=== PATIENT | female | born 1945 | race Caucasian/White ===

== ENCOUNTER 2016-08-17 11:30 | Emergency (ER) | payer OTHER ==
[2016-08-17 11:50] VITALS: BP 122/62; PULSE 88; RESP 18; TEMP 98; O2SAT 97
--- NOTE | 2016-08-17 12:06 | UCPHY ---
H & P Patient Type: Established Chief Complaint Nursing Narrative: sent over for iv antibotics Time Seen by Provider: 08/17/16 11:43 HPI/ROS: CHIEF COMPLAINT: Cellulitis HISTORY OF PRESENT ILLNESS: The patient is a 71-year-old female who is sent from her doctor's office upstairs down to the Urgent Care to receive IV Rocephin. She has swelling and erythema to her right wrist. She is not sure how it started. She 1st noticed yesterday. It is warm to the touch and slightly painful for her. She denies any trauma. No visible abscess or purulence. She is not febrile. She had x-rays done already that revealed no fracture or signs of osteomyelitis. She denies any recent animal bite or scratch. She also had lab work done with her primary the reveals a mildly elevated white blood cell count. REVIEW OF SYSTEMS: Constitutional: denies: chills, fever, recent illness, recent injury EENTM: denies: blurred vision, double vision, nose congestion Respiratory: denies: cough, shortness of breath Cardiac: denies: chest pain, irregular heart rate, lightheadedness, palpitations Gastrointestinal/Abdominal: denies: abdominal pain, diarrhea, nausea, vomiting, blood streaked stools Genitourinary: denies: dysuria, frequency, hematuria, pain Musculoskeletal: denies: joint pain, muscle pain Skin: See HPI Neurological: denies: headache, numbness, paresthesia, tingling, dizziness, weakness Hematologic/Lymphatic: denies: blood clots, easy bleeding, easy bruising Immunologic/allergic: denies: HIV/AIDS, transplant EXAM: GENERAL: Well-appearing, well-nourished and in no acute distress. HEAD: Atraumatic, normocephalic. EYES: Pupils equal round and reactive to light, extraocular movements intact, sclera anicteric, conjunctiva are normal. ENT: TMs normal, nares patent, oropharynx clear without exudates. Moist mucous membranes. NECK: Normal range of motion, supple without lymphadenopathy or JVD. LUNGS: Breath sounds clear to auscultation bilaterally and equal. No wheezes rales or rhonchi. HEART: Regular rate and rhythm without murmurs, rubs or gallops. ABDOMEN: Soft, nontender, normoactive bowel sounds. No guarding, no rebound. No masses appreciated. BACK: No CVA tenderness, no spinal tenderness, step-offs or deformities EXTREMITIES: Normal range of motion, no pitting or edema. No clubbing or cyanosis. NEUROLOGICAL: Cranial nerves II through XII grossly intact. Normal speech, normal gait. 5/5 strength, normal movement in all extremities, normal sensation PSYCH: Normal mood, normal affect. SKIN: Right wrist with mild erythema and swelling circumferentially. Extends up to mid forearm. No obvious wound or abscess. Source: Patient - Personal History Tetanus Vaccine Date: 2005 - Medical/Surgical History Hx Asthma: Yes Hx Chronic Respiratory Disease: Yes Hx Diabetes: Yes Hx Cardiac Disease: No Hx Renal Disease: No Hx Cirrhosis: No Hx Alcoholism: No Hx HIV/AIDS: No Hx Splenectomy or Spleen Trauma: No Other PMH: HTN, HIGH CHOLESTROL, BENIGN STENOSIS SURGERY. UNABLE TO SWALLOW PILLS D/T "SPIDERWEB THROAT.". HYPOTHYROID, CSEC, ENDOSCOPIES, EAR DRUM SURG 2012, pneumonia, partial thyroidectomy - Family History Significant Family History: No pertinent family hx - Social History Smoking Status: Never smoked Alcohol Use: Sober Drug Use: None Constitutional: Initial Vital Signs Temperature (C) 36.6 C 08/17/16 11:47 Heart Rate 88 08/17/16 11:47 Respiratory Rate 18 08/17/16 11:47 Blood Pressure 122/62 H 08/17/16 11:47 O2 Sat (%) 97 08/17/16 11:47 O2 Delivery Mode Room Air Allergies/Adverse Reactions: azithromycin [Azithromycin] Allergy (Intermediate, Verified 01/02/16 16:15) "GETS WORSE NOT BETTER" WITH THIS MED PAIN MEDS Allergy (Intermediate, Uncoded 09/25/15 10:21) Vomiting PILLS Allergy (Uncoded 09/25/15 10:22) Other-Enter Comments Home Medications: Medication Instructions Recorded Aspirin [Aspirin 81mg] 81 mg PO DAILY 11/04/10 SIMVASTATIN [Zocor] 40 mg PO HS 11/04/10 Levothyroxine [Synthroid 88 mcg 88 mcg PO DAILY06 10/26/11 (RX)] Losartan/Hydrochlorothiazide 0.5 each PO DAILY 10/26/11 [Losartan-Hctz 100-12.5 Mg Tab] Zolpidem Tartrate [Ambien 10 mg] 10 mg PO HS 10/26/11 Allergy Pill 12/12/14 Ipratropium/Albuterol [Duoneb (RX)] 3 ml IH Q4-6PRN #25 deyvial 06/26/14 Pulmicort 09/25/15 Medical Decision Making ED Course/Re-evaluation: We will dose the patient with Rocephin and obtain blood cultures. We discussed possibly using vancomycin but will at this point would prefer to stick to her primary physician's plan. She will receive Rocephin here today taken oral Keflex tonight and return tomorrow morning for follow-up to re-evaluate her infection which is in accordance with the recommendations for a non. He will and skin infection.. If it seems that it is worsening possibly switch to vancomycin at that point and possibly admit. 1:00 p.m. the patient tolerated her infusion well. The infection has not progressed. She understands instructions to return tomorrow morning. Differential Diagnosis: Partial list of the Differential diagnosis considered include but were not limited to; cellulitis, abscess and although unlikely based on the history and physical exam, I also considered DVT, foreign body, allergic reaction. I discussed these differential diagnoses and the plan with the patient as well as the usual and expected course. The patient understands that the diagnosis is provisional and that in medicine we are not always correct and that further workup is often warranted. Usual and customary warnings were given. All of the patient's questions were answered. The patient was instructed to return to the emergency department should the symptoms at all worsen or return, otherwise to followup with the physician as we discussed. - Data Points Medications Given: Discontinued Medications Ceftriaxone Sodium 1 gm/ (Sodium Chloride) 100 mls @ 200 mls/hr IV EDNOW ONE PRN Reason: Protocol Stop: 08/17/16 12:27 Last Admin: 08/17/16 12:47 Dose: 100 mls Departure - Departure Disposition: Home, Routine, Self-Care Clinical Impression: Cellulitis Qualifiers: Site of cellulitis: extremity Site of cellulitis of extremity: upper extremity Laterality: right Qualifier Code: (L03.113) Cellulitis of right upper limb Condition: Fair Instructions: Cellulitis (ED) Additional Instructions: The take you are antibiotic tonight before he go to bed and then return here in the morning for recheck and possibly more IV antibiotics. Referrals: Rey Arguelles MD [Primary Care Provider] - As per Instructions - PQRS PQRS Measurement: 134: Depression screening and followup, PRIME MD-PHQ2 (12 years and older) Over the last 2 weeks, how often have you been bothered by any of the following problems? 1. Feeling down, depressed, or hopeless? 2. Little interest or pleasure in doing things? Patient answered no to both 1 and 2 130: Documentation of medications. Reviewed all patient medications, doses, route and frequency. 226: Do you smoke? No. 47: 65 and older: Advanced care planning. Patient designates surrogate decision maker as spouse . Patient has advanced directive. 51: 18 years old and older with diagnosis of COPD, spirometry performance. Spirometry not performed; equipment not available. 52: 18 years old and older with COPD and symptoms of COPD or FEV1<60% predicted prescribed a B Agonist. Not applicable
== END 2016-08-17 13:02 | disposition home or self-care (01) ==
LOC: CED 11:30
DX: L53.9 Erythematous condition, unspecified (principal); D72.829 Elevated white blood cell count, unspecified; E78.00 Pure hypercholesterolemia, unspecified; E03.9 Hypothyroidism, unspecified
CPT/HCPCS: 96365; G0463; J0696; 99214-PO

== ENCOUNTER → 2016-08-17 | Outpatient (CLI) | payer OTHER ==
--- NOTE | 2016-08-17 11:49 | DX ---
Right Wrist, Four Views History: Acute wrist pain. No trauma. M25.531. Findings: Slight ulnar minus variant. No evidence of fracture of the distal radius or ulna. Mild radi ocarpal joint space narrowing. Mild joint space narrowing, moderate subchondral sclerosis, and modera te osteophytes involving the first carpometacarpal joint and base of the first metacarpal. No acute f racture noted. No destructive osseous lesions. No evidence of scaphoid fracture. Impression: 1. Moderate osteoarthritis first carpometacarpal joint. 2. Ulnar minus variant. 3. No acute fracture or destructive osseous lesions.
== END ==
LOC: CIMAGING 10:35
PROVIDERS: ATTEND Internal Medicine
DX: M18.11 Unilateral primary osteoarthritis of first carpometacarpal joint, right hand (principal); M21.831 Other specified acquired deformities of right forearm; L53.9 Erythematous condition, unspecified; D72.829 Elevated white blood cell count, unspecified; E78.00 Pure hypercholesterolemia, unspecified; E03.9 Hypothyroidism, unspecified
CPT/HCPCS: 73110; 96365; G0463; J0696; 85025-PO; 85652-PO; 99214-PO

== ENCOUNTER 2016-10-08 13:01 | Emergency (ER) | payer OTHER ==
[2016-10-08 13:52] VITALS: BP 144/70; PULSE 91; RESP 16; TEMP 97.7; O2SAT 93
[2016-10-08] MEDS ORDERED: ONDANSETRON DISINTEGRATING 4 MG TAB PO ONE (14:49)
--- NOTE | 2016-10-08 14:52 | UCPHY ---
H & P Time Seen by Provider: 10/08/16 14:32 Patient Type: Established HPI/ROS: This patient reports vomiting and diarrhea. Symptoms been present over the past few days and she vomited shortly prior to arrival for the 1st time prompting her visit. She has had loose stools for 3 days prior to this. The diarrhea is improving. She has ongoing mild nausea currently. No exacerbating factors are noted for symptoms. ROS: No high fevers or chills. She reports no HEENT complaints. No pulmonary complaints. No cardiovascular complaints. GI: No abdominal pain. No urinary symptoms. She has a chronic leg wounds to the right leg at the site of a squamous cell cancer removal with some erythema but she reports that since the visit to the certified medical coding specialist this past the erythema has significantly diminished. She has mild discomfort but she does not feel there is any acute issues with her leg wound. 10 point ROS is otherwise negative. Past Medical/Surgical History: Squamous cell count carcinoma Hypothyroidism Hypertension Smoking Status: Never smoked Physical Exam: General Appearance: Alert, no distress. Eyes: Pupils equal and round no pallor or injection. ENT, Mouth: Mucous membranes moist. Respiratory: There are no retractions, lungs are clear to auscultation. Cardiovascular: Regular rate and rhythm. Gastrointestinal: Abdomen is soft and nontender, no masses, bowel sounds normal. Neurological: Alert with no focal deficits Skin: There is chronic wound to right lower extremity with a dressing in place is clean dry intact. There is mild surrounding erythema but no significant warmth to touch. No fluctuance. The medial border around the wound is not erythematous. Musculoskeletal: Neck is supple nontender. Extremities are symmetrical, full range of motion. Psychiatric: Mood and affect normal DIFFERENTIAL DIAGNOSIS: After history and physical exam differential diagnosis was considered for mild viral gastroenteritis without significant dehydration, Constitutional: Initial Vital Signs Temperature (C) 36.5 C 10/08/16 13:49 Heart Rate 91 10/08/16 13:49 Respiratory Rate 16 10/08/16 13:49 Blood Pressure 144/70 H 10/08/16 13:49 O2 Sat (%) 93 10/08/16 13:49 O2 Delivery Mode Room Air Allergies/Adverse Reactions: azithromycin [Azithromycin] Allergy (Intermediate, Verified 10/08/16 13:48) "GETS WORSE NOT BETTER" WITH THIS MED PAIN MEDS Allergy (Intermediate, Uncoded 10/08/16 13:48) Vomiting PILLS Allergy (Uncoded 10/08/16 13:48) Other-Enter Comments Home Medications: Medication Instructions Recorded Aspirin [Aspirin 81mg] 81 mg PO DAILY 11/04/10 SIMVASTATIN [Zocor] 40 mg PO HS 11/04/10 Levothyroxine [Synthroid 88 mcg 88 mcg PO DAILY06 10/26/11 (RX)] Losartan/Hydrochlorothiazide 0.5 each PO DAILY 10/26/11 [Losartan-Hctz 100-12.5 Mg Tab] Zolpidem Tartrate [Ambien 10 mg] 10 mg PO HS 10/26/11 Allergy Pill 06/26/14 Ipratropium/Albuterol [Duoneb (RX)] 3 ml IH Q4-6PRN #25 deyvial 06/26/14 Pulmicort 09/25/15 Ondansetron Odt [Zofran Odt] 4 - 8 mg PO Q4PRN PRN #4 tab 10/08/16 MDM/Departure - [facility] Medications Given: Discontinued Medications Ondansetron HCl (Zofran Odt) 4 mg PO EDNOW ONE Stop: 10/08/16 14:50 Last Admin: 10/08/16 16:54 Dose: 4 mg ED Course/Re-evaluation: Zofran ODT with resolution of nausea vomiting. She then tolerated p.o. intake without difficulty. Discussion: This patient appears very well clinically. I do not think she warrants IV hydration given her improvement with Zofran normally 1 episode of vomiting. Viral gastroenteritis is present our community at this time think she has a mild version of this. I counseled her regarding this she is comfortable with this plan. - Depart Disposition: Home, Routine, Self-Care Clinical Impression: Viral gastroenteritis, Chronic wound of extremity Condition: Good Instructions: Gastroenteritis (ED) Additional Instructions: Diagnosis: Viral Gastroenteritis 2. Chronic leg wound Plan: Zofran for nausea or vomiting Drink plenty fluids Light diet to feel improved Return for any significant worsening despite treatment plan YOur symptoms should improve over the next 1-3 days. Prescriptions: Ondansetron Odt [Zofran Odt] 4 - 8 mg PO Q4PRN PRN #4 tab PRN Reason: Vomiting Referrals: Rey Arguelles MD [Primary Care Provider] - As per Instructions - PQRS PQRS Measurement: 134: Depression screening and followup, PRIME MD-PHQ2 (12 years and older) Over the last 2 weeks, how often have you been bothered by any of the following problems? 1. Feeling down, depressed, or hopeless? 2. Little interest or pleasure in doing things? Patient answered no to both 1 and 2 130: Documentation of medications. Reviewed all patient medications, doses, route and frequency. 226: Do you smoke? [No.] 47: 65 and older: Advanced care planning. Patient designates surrogate decision maker as spouse 51: 18 years old and older with diagnosis of COPD, spirometry performance. NA 52: 18 years old and older with COPD and symptoms of COPD or FEV1<60% predicted prescribed a B Agonist. NA
== END 2016-10-08 14:52 | disposition home or self-care (01) ==
LOC: CED 13:01
DX: A08.4 Viral intestinal infection, unspecified (principal); L53.9 Erythematous condition, unspecified; Z85.828 Personal history of other malignant neoplasm of skin
CPT/HCPCS: G0463-PO

== ENCOUNTER 2016-10-12 11:41 | Emergency (ER) | payer OTHER ==
[2016-10-12] MEDS ORDERED: ASPIRIN 325 MG TAB PO ONE (11:46)
[2016-10-12 11:53] VITALS: TEMP 97.2; O2SAT 94
[2016-10-12] MEDS ORDERED: ASPIRIN 81 MG CHEWABLE TAB ONE (11:56)
--- NOTE | 2016-10-12 11:56 | CPEKG ---
Heart Rate: 70 RR Interval: 857 P-R Interval: 212 QRSD Interval: 84 QT Interval: 396 QTC Interval: 428 P [place]: 0 QRS [place]: 44 T Wave [place]: 22 EKG Severity - ABNORMAL ECG - EKG Impression: SINUS RHYTHM EKG Impression: MULTIPLE VENTRICULAR PREMATURE COMPLEXES EKG Impression: ANTERIOR INFARCT, OLD EKG Impression: unchanged from 06/09/13 Electronically Signed By: Taran Dickinson 12-Oct-2016 15:00:41
[2016-10-12] MEDS ORDERED: ASPIRIN 81 MG CHEWABLE TAB PO ONE (11:59)
--- NOTE | 2016-10-12 12:05 | UCPHY ---
H & P Patient Type: Established Chief Complaint Nursing Narrative: c/o pain to upper back x 1 week. sent from her MD for cardiac workup Time Seen by Provider: 10/12/16 11:48 HPI/ROS: Chief Complaint: Upper back pain HPI: 71-year-old woman who is been recently diagnosed with a gastroenteritis is presenting with several days of aching in her upper back. Patient states that she wakes up feeling okay during the course of the day she gets a dull aching in her upper back which sometimes goes into her bilateral arms. Does not radiate to from her chest. She has not have any shortness of breath or central chest pain. Patient states that she is walking up to 5-10 miles a day and this does not make the aching any worse. She does have a strong family history of coronary disease is followed by the [facility] physicians. She states cholesterol medications but denies ever having had a heart attack in the past. No shortness of breath. No pain on exertion. No angina type of symptoms. At worst is about a 3 or 4/10. She states she has been having it since earlier this morning today. ROS: 10 point Review of Systems is negative except as noted in the HPI. PMH: Hyperlipidemia Medications: Lipid agents Social History: No smoking, no alcohol, no recreational drug use Family History: Father of a heart attack in his 50s Physical Exam: Gen: Awake, Alert, No Distress HEENT: Nose: no rhinorrhea Eyes: PERRLA, EOMI Mouth: Moist mucosa Neck: Supple, no JVD Chest: nontender, lungs clear to auscultation Heart: S1, S2 normal, no murmur Abd: Soft, non-tender, no guarding Back: no CVA tenderness, no midline tenderness Ext: no edema, non-tender Skin: no rash Neuro: CN II-XII intact, Sensation grossly intact, Strength 5/5 in bilateral upper and lower extremities - Personal History Tetanus Vaccine Date: 2005 - Medical/Surgical History Hx Asthma: Yes Hx Chronic Respiratory Disease: Yes Hx Diabetes: No Hx Cardiac Disease: Yes Hx Renal Disease: No Hx Cirrhosis: No Hx Alcoholism: No Hx HIV/AIDS: No Hx Splenectomy or Spleen Trauma: No Other PMH: htn, hypothyroid - Family History Significant Family History: No pertinent family hx - Social History Smoking Status: Former smoker Constitutional: Initial Vital Signs Temperature (C) 36.2 C 10/12/16 11:51 Heart Rate 78 10/12/16 11:51 Respiratory Rate 20 10/12/16 11:51 Blood Pressure 173/88 H 10/12/16 11:51 O2 Sat (%) 94 10/12/16 11:51 O2 Delivery Mode Room Air Allergies/Adverse Reactions: azithromycin [Azithromycin] Allergy (Intermediate, Verified 10/08/16 13:48) "GETS WORSE NOT BETTER" WITH THIS MED PAIN MEDS Allergy (Intermediate, Uncoded 10/08/16 13:48) Vomiting PILLS Allergy (Uncoded 10/08/16 13:48) Other-Enter Comments Home Medications: Medication Instructions Recorded Aspirin [Aspirin 81mg] 81 mg PO DAILY 11/04/10 SIMVASTATIN [Zocor] 40 mg PO HS 11/04/10 Levothyroxine [Synthroid 88 mcg 88 mcg PO DAILY06 10/26/11 (RX)] Losartan/Hydrochlorothiazide 0.5 each PO DAILY 10/26/11 [Losartan-Hctz 100-12.5 Mg Tab] Zolpidem Tartrate [Ambien 10 mg] 10 mg PO HS 10/26/11 Allergy Pill 06/26/14 Medical Decision Making - Diagnostics EKG Interpretation: ECG time is 11:54 a.m., sinus rhythm with a rate of 70, normal axis, normal intervals, Q-waves consistent with an old anterior infarct. There or PVCs present. Her ECG is unchanged compared to 09 June 2013. ED Course/Re-evaluation: Troponin is 0. BUN is up a little bit but she has had a recent diarrheal illness is consistent with dehydration. Blood sugar is a little bit alone she has been fed here. Otherwise her blood work is entirely unremarkable. She has no acute changes on her ECG. She has not had any chest pain or anginal equivalents. Will discharge with instructions to follow up with her continuous miner next week. I have discussed with Dr. Bales, her primary care physician. I have given him her diagnostic results. He is in agreement with the plan and will plan on seeing her in follow-up. - Data Points Laboratory Results: Laboratory Results 10/12/16 12:30 10/12/16 12:30 10/12/16 10/12/16 12:30 12:30 WBC 9.06 10^3/uL 10^3/uL (3.80-9.50) RBC 4.83 10^6/uL 10^6/uL (4.18-5.33) Hgb 13.7 g/dL g/dL (12.6-16.3) Hct 41.4 % % (38.0-47.0) MCV 85.7 fL fL (81.5-99.8) MCH 28.4 pg pg (27.9-34.1) MCHC 33.1 g/dL g/dL (32.4-36.7) RDW 16.7 % H % (11.5-15.2) Plt Count 336 10^3/uL 10^3/uL (150-400) MPV 9.3 fL fL (8.7-11.7) Neut % (Auto) 76.1 % H % (39.3-74.2) Lymph % (Auto) 15.0 % % (15.0-45.0) [place] % (Auto) 6.5 % % (4.5-13.0) Eos % (Auto) 1.7 % % (0.6-7.6) Baso % (Auto) 0.3 % % (0.3-1.7) Nucleat RBC Rel Count 0.0 % % (0.0-0.2) Absolute Neuts (auto) 6.89 10^3/uL H 10^3/uL (1.70-6.50) Absolute Lymphs (auto) 1.36 10^3/uL 10^3/uL (1.00-3.00) Absolute Monos (auto) 0.59 10^3/uL 10^3/uL (0.30-0.80) Absolute Eos (auto) 0.15 10^3/uL 10^3/uL (0.03-0.40) Absolute Basos (auto) 0.03 10^3/uL 10^3/uL (0.02-0.10) Absolute Nucleated RBC 0.00 10^3/uL 10^3/uL (0-0.01) Immature Gran % 0.4 % % (0.0-1.1) Immature Gran # 0.04 10^3/uL 10^3/uL (0.00-0.10) Sodium 143 mEq/L mEq/L (134-144) Potassium 3.7 mEq/L mEq/L (3.5-5.2) Chloride 102 mEq/L mEq/L (97-110) Carbon Dioxide 26 mEq/l mEq/l (22-31) Anion Gap 15 mEq/L mEq/L (8-16) BUN 31 mg/dL H mg/dL (7-23) Creatinine 0.7 mg/dL mg/dL (0.6-1.0) Estimated GFR > 60 Glucose 54 mg/dL L mg/dL (70-100) Calcium 9.1 mg/dL mg/dL (8.5-10.4) Total Bilirubin 0.5 mg/dL mg/dL (0.1-1.4) AST 34 IU/L IU/L (14-46) ALT 43 IU/L IU/L (9-52) Alkaline Phosphatase 85 IU/L IU/L (38-126) Troponin I < 0.012 ng/mL ng/mL (0-0.034) Total Protein 6.8 g/dL g/dL (6.3-8.2) Albumin 3.8 g/dL g/dL (3.5-5.0) Medications Given: Discontinued Medications Aspirin (Aspirin) 325 mg PO EDNOW ONE Stop: 10/12/16 11:47 Last Admin: 10/12/16 12:01 Dose: Not Given Aspirin (Aspirin) 324 mg PO EDNOW ONE Stop: 10/12/16 12:00 Last Admin: 10/12/16 11:58 Dose: 324 mg Departure - Departure Disposition: Home, Routine, Self-Care Clinical Impression: Back pain Condition: Good Instructions: Back Pain (ED) Additional Instructions: Follow up with her primary care physician in your continuous miner next week for re- evaluation. Return emergency depart for increasing chest pain, shortness of breath, fevers, chills, or any other concerns. Referrals: Rey Arguelles MD [Primary Care Provider] - As per Instructions - PQRS PQRS Measurement: 134: Depression screening and followup, PRIME HERNANDEZ-PHQ2 (12 years and older) Over the last 2 weeks, how often have you been bothered by any of the following problems? 1. Feeling down, depressed, or hopeless? 2. Little interest or pleasure in doing things? Patient answered no to both 1 and 2 130: Documentation of medications. Reviewed all patient medications, doses, route and frequency. 226: Do you smoke? No. 47: 65 and older: Advanced care planning. Patient designates surrogate decision maker as Patient has advanced directive. 51: 18 years old and older with diagnosis of COPD, spirometry performance. Patient has no history of COPD 52: 18 years old and older with COPD and symptoms of COPD or FEV1<60% predicted prescribed a B Agonist. Spirometry not performed; equipment not available.
[2016-10-12 12:35] LABS: % IMMATURE GRANULYOCYTES 0.4 % (0.0-1.1); ABSOLUTE IMMATURE GRANULOCYTES 0.04 10^3/uL (0.00-0.10); ADD DIFF? NO; ADD MORPH? NO; ADD SCAN? NO; ATYPICAL LYMPHOCYTE FLAG 0 (0-99); FRAGMENT RBC FLAG 0 (0-99); HEMATOCRIT 41.4 % (38.0-47.0); HEMOGLOBIN 13.7 g/dL (12.6-16.3); LEFT SHIFT FLG 10 (0-99); LIPEMIA HEMOLYSIS FLAG 80 (0-99); MEAN CELL HEMOGLOBIN 28.4 pg (27.9-34.1); MEAN CELL HEMOGLOBIN CONCENTR. 33.1 g/dL (32.4-36.7); MEAN CELL VOLUME 85.7 fL (81.5-99.8); MEAN PLATELET VOLUME 9.3 fL (8.7-11.7); PLATELET CLUMPS FLAG 20 (0-99); PLATELET COUNT 336 10^3/uL (150-400); RED BLOOD CELL COUNT 4.83 10^6/uL (4.18-5.33); RED CELL DISTRIBUTION WIDTH 16.7 % (11.5-15.2)
[2016-10-12 12:55] LABS: ALANINE AMINOTRANSFERASE 43 IU/L (9-52); ALBUMIN 3.8 g/dL (3.5-5.0); ALKALINE PHOSPHATASE 85 IU/L (38-126); ANION GAP 15 mEq/L (8-16); ASPARTATE AMINOTRANSFERASE 34 IU/L (14-46); BILIRUBIN,TOTAL 0.5 mg/dL (0.1-1.4); CALCIUM 9.1 mg/dL (8.5-10.4); CARBON DIOXIDE 26 mEq/l (22-31); CHLORIDE 102 mEq/L (97-110); CREATININE 0.7 mg/dL (0.6-1.0); GLOMERULAR FILTRATION RATE > 60; GLUCOSE 54 mg/dL (70-100); POTASSIUM 3.7 mEq/L (3.5-5.2); SODIUM 143 mEq/L (134-144); TOTAL PROTEIN 6.8 g/dL (6.3-8.2)
[2016-10-12 13:01] LABS: TROPONIN I < 0.012 ng/mL (0-0.034)
[2016-10-12 14:51] VITALS: BP 132/76; PULSE 73; RESP 16
== END 2016-10-12 13:52 | disposition home or self-care (01) ==
LOC: CED 11:41
DX: M54.6 Pain in thoracic spine (principal)
CPT/HCPCS: 93005; G0463; 80053-PO; 84484-PO; 85025-PO; 99215-PO

== ENCOUNTER → 2016-11-21 | Outpatient (CLI) | payer OTHER | LOC: CIMAGING 07:09 | PROVIDERS: ATTEND Internal Medicine | DX: R74.8 Abnormal levels of other serum enzymes (principal) | CPT/HCPCS: 76700-PO ==

== ENCOUNTER → 2017-01-09 | Outpatient (CLI) | payer OTHER | LOC: BHFA 09:00 | PROVIDERS: ATTEND Internal Medicine | DX: I25.10 Atherosclerotic heart disease of native coronary artery without angina pectoris (principal) ==

== ENCOUNTER → 2017-01-26 | Outpatient (CLI) | payer OTHER | LOC: CIMAGING 11:25 | PROVIDERS: ATTEND Internal Medicine Critical Care Medicine | DX: R91.1 Solitary pulmonary nodule (principal); R91.8 Other nonspecific abnormal finding of lung field | CPT/HCPCS: 71250-PO ==

== ENCOUNTER 2017-03-23 09:23 | Emergency (ER) | payer OTHER ==
[2017-03-23] MEDS ORDERED: METOCLOPRAMIDE 10 MG/2 ML VIAL IVP ONE (09:49)
[2017-03-23] MEDS ORDERED: NS 1,000 ML IV ONE (09:49)
[2017-03-23] MEDS ORDERED: HYDROmorphONE/DILAUDID 1 MG/ML INJ IVP ONE (09:49)
[2017-03-23] MEDS ORDERED: DEXAMETHASONE 10 MG/ML VIAL IVP ONE (09:49)
--- NOTE | 2017-03-23 09:56 | EDPHY ---
H & P Stated Complaint: DON constant overnight; nausea/vomiting Time Seen by Provider: 03/23/17 09:45 HPI/ROS: CHIEF COMPLAINT: Headache HISTORY OF PRESENT ILLNESS: The patient is a 72-year-old female who comes to the emergency department complaining of a headache behind her right eye. She states that she never gets headaches and that this is the worst of her life. It began in the middle of the night while she was sleeping. She has vomited several times this morning. She has had a productive cough over the last few days and history of COPD and saw her primary is office and was started on the an antibiotic, likely amoxicillin. She states that she cannot swallow pills because she has A esophageal stricture. She has not had a fever. She has not had any trauma. No neck pain or stiffness. She drove herself here this morning. REVIEW OF SYSTEMS: Constitutional: denies: chills, fever, recent illness, recent injury EENTM: denies: blurred vision, double vision, nose congestion Respiratory: denies: cough, shortness of breath Cardiac: denies: chest pain, irregular heart rate, lightheadedness, palpitations Gastrointestinal/Abdominal: denies: abdominal pain, diarrhea, nausea, vomiting, blood streaked stools Genitourinary: denies: dysuria, frequency, hematuria, pain Musculoskeletal: denies: joint pain, muscle pain Skin: denies: lesions, rash, jaundice, bruising Neurological: See HPI denies: numbness, paresthesia, tingling, dizziness, weakness Hematologic/Lymphatic: denies: blood clots, easy bleeding, easy bruising Immunologic/allergic: denies: HIV/AIDS, transplant EXAM: GENERAL: Well-appearing, thin and in no acute distress. HEAD: Atraumatic, normocephalic. EYES: Pupils equal round and reactive to light, extraocular movements intact, sclera anicteric, conjunctiva are normal. ENT: TMs normal, nares patent, oropharynx clear without exudates. Moist mucous membranes. NECK: Normal range of motion, supple without lymphadenopathy or JVD. LUNGS: Breath sounds clear to auscultation bilaterally and equal. No wheezes rales or rhonchi. HEART: Regular rate and rhythm without murmurs, rubs or gallops. ABDOMEN: Soft, nontender, normoactive bowel sounds. No guarding, no rebound. No masses appreciated. BACK: No CVA tenderness, no spinal tenderness, step-offs or deformities EXTREMITIES: Normal range of motion, no pitting or edema. No clubbing or cyanosis. NEUROLOGICAL: Cranial nerves II through XII grossly intact. Normal speech, normal gait. 5/5 strength, normal movement in all extremities, normal sensation PSYCH: Normal mood, normal affect. SKIN: Warm, dry, normal turgor, no visible rashes or lesions. Source: Patient Exam Limitations: No limitations - Personal History Current Tetanus/Diphtheria Vaccine: Yes Tetanus Vaccine Date: 2005 - Medical/Surgical History Hx Asthma: Yes Hx Chronic Respiratory Disease: Yes Hx Diabetes: No Hx Cardiac Disease: Yes Hx Renal Disease: No Hx Cirrhosis: No Hx Alcoholism: No Hx HIV/AIDS: No Hx Splenectomy or Spleen Trauma: No Other PMH: htn, hypothyroid, copd - Family History Significant Family History: No pertinent family hx - Social History Smoking Status: Former smoker Alcohol Use: Sober Drug Use: None Constitutional: Initial Vital Signs Temperature (C) 36.9 C 03/23/17 09:31 Heart Rate 84 03/23/17 09:31 Respiratory Rate 16 03/23/17 09:31 Blood Pressure 169/74 H 03/23/17 09:31 O2 Sat (%) 90 L 03/23/17 09:31 O2 Delivery Mode Room Air Allergies/Adverse Reactions: azithromycin [Azithromycin] Allergy (Intermediate, Verified 03/23/17 09:34) "GETS WORSE NOT BETTER" WITH THIS MED PAIN MEDS Allergy (Intermediate, Uncoded 10/08/16 13:48) Vomiting PILLS Allergy (Uncoded 10/08/16 13:48) Other-Enter Comments Home Medications: Medication Instructions Recorded Aspirin [Aspirin 81mg] 81 mg PO DAILY 11/04/10 Levothyroxine [Synthroid 88 mcg 88 mcg PO DAILY06 10/26/11 (RX)] Zolpidem Tartrate [Ambien 10 mg] 10 mg PO HS 10/26/11 Atorvastatin Calcium 03/23/17 Losartan Potassium 03/23/17 Omeprazole 03/23/17 Ondansetron Odt [Zofran Odt 4 mg 4 mg PO Q4 PRN #20 tab 03/23/17 (RX)] ZYRTEC 03/23/17 Medical Decision Making - Diagnostics EKG Interpretation: An EKG obtained and was read and documented in trace view. Please see trace view for full reading and report. Sinus rhythm, no acute ischemic changes Imaging Results: Imaging Impressions Head CT 03/23/17 09:50 Impression: Normal. Results called to Dr. Muniz at 10:38 AM General information for patients regarding this examination can be found at [email or web address]. If you have questions or comments about this report, please contact me at (hospital) or [phone] (cell). Imaging: Discussed imaging studies w/ customs brokerage agent Radiologist ED Course/Re-evaluation: 11:35 a.m. the patient is feeling much better and is eager to go home. We discussed risks and benefits of lumbar puncture. She declines. She understands that we cannot completely rule out hemorrhage. I Do not suspect meningitis. She is not febrile and has no neck stiffness. I think that her white blood cell count is elevated from her bronchitis for which she is currently being treated. We discussed indications for returning. She declines further medications but does request a prescription for Zofran. Differential Diagnosis: Partial list of the Differential diagnosis considered include but were not limited to; headache, migraine, sinusitis and although unlikely based on the history and physical exam, I also considered aneurysm, dissection, tumor, trauma , acute coronary disease. I discussed these differential diagnoses and the plan with the patient as well as the usual and expected course. The patient understands that the diagnosis is provisional and that in medicine we are not always correct and that further workup is often warranted. Usual and customary warnings were given. All of the patient's questions were answered. The patient was instructed to return to the emergency department should the symptoms at all worsen or return, otherwise to followup with the physician as we discussed. - Data Points Laboratory Results: Laboratory Results 03/23/17 10:30 03/23/17 10:30 03/23/17 03/23/17 10:30 10:30 WBC 22.41 10^3/uL H 10^3/uL (3.80-9.50) RBC 4.85 10^6/uL 10^6/uL (4.18-5.33) Hgb 14.5 g/dL g/dL (12.6-16.3) Hct 41.6 % % (38.0-47.0) MCV 85.8 fL fL (81.5-99.8) MCH 29.9 pg pg (27.9-34.1) MCHC 34.9 g/dL g/dL (32.4-36.7) RDW 12.8 % % (11.5-15.2) Plt Count 307 10^3/uL 10^3/uL (150-400) MPV 9.1 fL fL (8.7-11.7) Neut % (Auto) 89.4 % H % (39.3-74.2) Lymph % (Auto) 3.1 % L % (15.0-45.0) [place] % (Auto) 6.3 % % (4.5-13.0) Eos % (Auto) 0.2 % L % (0.6-7.6) Baso % (Auto) 0.2 % L % (0.3-1.7) Nucleat RBC Rel Count 0.0 % % (0.0-0.2) Absolute Neuts (auto) 20.03 10^3/uL H 10^3/uL (1.70-6.50) Absolute Lymphs (auto) 0.69 10^3/uL L 10^3/uL (1.00-3.00) Absolute Monos (auto) 1.41 10^3/uL H 10^3/uL (0.30-0.80) Absolute Eos (auto) 0.05 10^3/uL 10^3/uL (0.03-0.40) Absolute Basos (auto) 0.05 10^3/uL 10^3/uL (0.02-0.10) Absolute Nucleated RBC 0.00 10^3/uL 10^3/uL (0-0.01) Immature Gran % 0.8 % % (0.0-1.1) Immature Gran # 0.18 10^3/uL H 10^3/uL (0.00-0.10) Sodium 135 mEq/L mEq/L (134-144) Potassium 3.7 mEq/L mEq/L (3.5-5.2) Chloride 100 mEq/L mEq/L (97-110) Carbon Dioxide 24 mEq/l mEq/l (22-31) Anion Gap 11 mEq/L mEq/L (8-16) BUN 23 mg/dL mg/dL (7-23) Creatinine 0.6 mg/dL mg/dL (0.6-1.0) Estimated GFR > 60 Glucose 108 mg/dL H mg/dL (70-100) Calcium 9.1 mg/dL mg/dL (8.5-10.4) Medications Given: Discontinued Medications Dexamethasone (Decadron Injection) 10 mg IVP EDNOW ONE Stop: 03/23/17 09:50 Last Admin: 03/23/17 10:30 Dose: 10 mg Hydromorphone HCl (Dilaudid) 0.5 mg IVP EDNOW ONE Stop: 03/23/17 09:50 Last Admin: 03/23/17 11:43 Dose: Not Given Sodium Chloride (Ns) 1,000 mls @ 0 mls/hr IV ONCE ONE; Wide Open PRN Reason: Protocol Stop: 03/23/17 09:50 Last Admin: 03/23/17 10:28 Dose: 1,000 mls Metoclopramide HCl (Reglan Injection) 10 mg IVP EDNOW ONE Stop: 03/23/17 09:50 Last Admin: 03/23/17 10:29 Dose: 10 mg Ondansetron HCl (Zofran Odt) 4 mg PO EDNOW ONE Stop: 03/23/17 11:48 Last Admin: 03/23/17 11:50 Dose: 4 mg Departure - Departure Disposition: Home, Routine, Self-Care Clinical Impression: Headache Qualifiers: Headache type: unspecified Headache chronicity pattern: acute headache Intractability: not intractable Qualified Code(s): R51 - Headache Condition: Fair Instructions: Acute Headache (ED) Referrals: Rey Arguelles MD [Primary Care Provider] - As per Instructions Prescriptions: Ondansetron Odt [Zofran Odt 4 mg (RX)] 4 mg PO Q4 PRN #20 tab PRN Reason: Nausea & Vomiting
[2017-03-23 10:39] LABS: % IMMATURE GRANULYOCYTES 0.8 % (0.0-1.1); ABSOLUTE IMMATURE GRANULOCYTES 0.18 10^3/uL (0.00-0.10); ADD DIFF? NO; ADD MORPH? NO; ADD SCAN? NO; ATYPICAL LYMPHOCYTE FLAG 0 (0-99); FRAGMENT RBC FLAG 0 (0-99); HEMATOCRIT 41.6 % (38.0-47.0); HEMOGLOBIN 14.5 g/dL (12.6-16.3); LEFT SHIFT FLG 20 (0-99); LIPEMIA HEMOLYSIS FLAG 90 (0-99); MEAN CELL HEMOGLOBIN 29.9 pg (27.9-34.1); MEAN CELL HEMOGLOBIN CONCENTR. 34.9 g/dL (32.4-36.7); MEAN CELL VOLUME 85.8 fL (81.5-99.8); MEAN PLATELET VOLUME 9.1 fL (8.7-11.7); PLATELET CLUMPS FLAG 20 (0-99); PLATELET COUNT 307 10^3/uL (150-400); RED BLOOD CELL COUNT 4.85 10^6/uL (4.18-5.33); RED CELL DISTRIBUTION WIDTH 12.8 % (11.5-15.2)
--- NOTE | 2017-03-23 10:55 | CPEKG ---
Heart Rate: 86 RR Interval: 698 P-R Interval: 200 QRSD Interval: 86 QT Interval: 380 QTC Interval: 455 P [place]: 87 QRS [place]: 58 T Wave [place]: 69 EKG Severity - OTHERWISE NORMAL ECG - EKG Impression: SINUS RHYTHM EKG Impression: LOW VOLTAGE IN FRONTAL LEADS Electronically Signed By: Chinmay Muniz 23-Mar-2017 10:56:27
[2017-03-23 10:57] LABS: ANION GAP 11 mEq/L (8-16); CALCIUM 9.1 mg/dL (8.5-10.4); CARBON DIOXIDE 24 mEq/l (22-31); CHLORIDE 100 mEq/L (97-110); CREATININE 0.6 mg/dL (0.6-1.0); GLOMERULAR FILTRATION RATE > 60; GLUCOSE 108 mg/dL (70-100); POTASSIUM 3.7 mEq/L (3.5-5.2); SODIUM 135 mEq/L (134-144)
[2017-03-23] MEDS ORDERED: ONDANSETRON DISINTEGRATING 4 MG TAB PO ONE (11:47)
[2017-03-23 11:53] VITALS: BP 141/69; PULSE 80; RESP 16; TEMP 97.9; O2SAT 90
== END 2017-03-23 11:54 | disposition home or self-care (01) ==
LOC: CED 09:23
DX: R51 Headache (principal); J45.909 Unspecified asthma, uncomplicated; I10 Essential (primary) hypertension; E86.9 Volume depletion, unspecified; Z87.891 Personal history of nicotine dependence; Z79.82 Long term (current) use of aspirin
CPT/HCPCS: 70450; 93005; 96361; 96374; 99285; J1100; J2765; 80048-PO; 85025-PO

== ENCOUNTER → 2017-03-28 | Outpatient (CLI) | payer OTHER | LOC: CIMAGING 15:26 | PROVIDERS: ATTEND Emergency Medicine | DX: J98.4 Other disorders of lung (principal); R05 Cough; J45.909 Unspecified asthma, uncomplicated | CPT/HCPCS: 71020; G0463 ==

== ENCOUNTER 2017-06-03 14:21 | Inpatient (IN) | payer OTHER ==
[2017-06-03] MEDS ORDERED: IPRATROPIUM/ALBUTEROL 3 ML DEYVIAL IH ONE (15:05)
[2017-06-03] MEDS ORDERED: ACETAMINOPHEN 325 MG TAB PO ONE (15:06)
[2017-06-03] MEDS ORDERED: ONDANSETRON DISINTEGRATING 4 MG TAB PO ONE (15:06)
--- NOTE | 2017-06-03 15:10 | EDPHY ---
H & P Stated Complaint: cough/matthews Time Seen by Provider: 06/03/17 14:47 HPI/ROS: CHIEF COMPLAINT: Cough HISTORY OF PRESENT ILLNESS: This is a 72-year-old female with a history of COPD , hypertension, and hyperlipidemia. She presents with 1 day of productive cough , fatigue, and headache. She has not taken anything for these complaints. She feels mildly short of breath. She notes that her heart rate is higher than usual and states that her normal heart rate is in the 60s. She denies chest pain. She has had an influenza vaccination this year. She is enrolled in an investigational study for which she uses 2 inhalers--1 of them is rescue inhaler which she last used yesterday. She tells me that she has had multiple episodes of pneumonia in the past. REVIEW OF SYSTEMS: A ten point review of systems was performed and is negative with the exception of the items mentioned in the HPI. She had ABX stress test performed a few months ago and did well on this. Past medical history: 1. COPD 2. Hypertension 3. Hyperlipidemia 4. Thyroid cancer 5. Esophageal stricture Past surgical history: 1. Partial thyroidectomy 2. Esophageal dilatations via endoscopy Family history: Her father in his early 50s of a myocardial infarction. Social history: She lives with her . She is a retired teacher. She leads an active lifestyle. She does not smoke and only did so for brief time. In the remote past. General Appearance: Alert. Vital signs reviewed. Blood pressure 160/59, respiratory rate 22 at triage. Vital signs otherwise normal. Eyes: Pupils equal and round, no conjunctival injection, no discharge. Anicteric. ENT, Mouth: Mucous membranes are moist, no oropharyngeal erythema or edema. Neck: No lymphadenopathy, supple. Trachea midline. Respiratory: Lungs are clear distant but to auscultation; no wheezes, rales, or rhonchi. Cardiovascular: Regular rate and rhythm; no murmur, rub, or gallop. She is not tachycardic. Gastrointestinal: Abdomen is soft and nontender, no masses or organomegaly, bowel sounds normal. Skin: Warm and dry, no rashes on exposed skin, normal color. Back: Nontender to palpation over the thoracolumbar spine. No CVAT. Extremities: No lower extremity edema, no calf tenderness or swelling. Neurological: Alert and oriented. Moving all four extremities easily and equally. Psychiatric: Normal affect. - Personal History Current Tetanus/Diphtheria Vaccine: Yes Tetanus Vaccine Date: 2005 - Medical/Surgical History Hx Asthma: Yes Hx Chronic Respiratory Disease: Yes Hx Diabetes: No Hx Cardiac Disease: No Hx Renal Disease: No Hx Cirrhosis: No Hx Alcoholism: No Hx HIV/AIDS: No Hx Splenectomy or Spleen Trauma: No Other PMH: htn, hypothyroid, copd - Social History Smoking Status: Former smoker Constitutional: Initial Vital Signs Temperature (C) 36.8 C 06/03/17 14:36 Heart Rate 90 06/03/17 14:36 Respiratory Rate 22 H 06/03/17 14:36 Blood Pressure 160/59 H 06/03/17 14:36 O2 Sat (%) 92 06/03/17 14:36 O2 Delivery Mode Room Air O2 (L/minute) 2 Allergies/Adverse Reactions: azithromycin [Azithromycin] Allergy (Intermediate, Verified 06/03/17 14:34) "GETS WORSE NOT BETTER" WITH THIS MED PAIN MEDS Allergy (Intermediate, Uncoded 10/08/16 13:48) Vomiting PILLS Allergy (Uncoded 10/08/16 13:48) Other-Enter Comments Home Medications: Medication Instructions Recorded Aspirin [Aspirin 81mg] 81 mg PO DAILY 11/04/10 Levothyroxine [Synthroid 88 mcg 88 mcg PO DAILY06 10/26/11 (RX)] Zolpidem Tartrate [Ambien 10 mg] 10 mg PO HS 10/26/11 Atorvastatin Calcium 03/23/17 Losartan Potassium 03/23/17 Omeprazole 03/23/17 Ondansetron Odt [Zofran Odt 4 mg 4 mg PO Q4 PRN #20 tab 03/23/17 (RX)] ZYRTEC 03/23/17 Study/Research Inhaler 06/03/17 Medical Decision Making - Diagnostics Imaging Results: Imaging Impressions Chest X-Ray 06/03/17 15:06 Impression: Question mild underlying bronchitis. Stable mild scarring in the lingula. Other chronic findings, as above. ED Course/Re-evaluation: She has had an influenza vaccination but features of her illness are suggestive of influenza. Will do an influenza test. She understands that the only treatment would be an antiviral medication but would like to know the result of the test. She is not febrile. Will also obtain a chest x-ray. She is being given a DuoNeb, some Zofran, and Tylenol. She tells me that she needs an antiemetic prior to taking Tylenol or other medications. Influenza rapid testing is negative. Re-examined at 3:50 p.m.. She actually sounds a bit tighter after the DuoNeb. She is going to use the rescue inhaler that is part of the investigational study. She was re-examined at 4:10 p.m., after using her rescue inhaler. She continues with diminished breath sounds and now some scattered wheezes. Pulse ox is 85-86%. She was initially resistant to any discussion of admission but now agrees that hospitalization is the best approach. She has also agreed to take some prednisone, which she initially refused. She will be admitted to doctor nadya up diet. While in the emergency department at [facility] she had a decrease in her blood pressure (to 96/48). This in conjunction with her elevated white blood cell count almost 21,000, is concerning for infection. No infiltrate is seen on her chest x-ray. Procalcitonin and respiratory pathogen panel have been ordered but cannot be obtained at this facility. I have added a lactate to her workup and am starting IV fluids. She remains alert, fully oriented, in unchanged in terms of her physical exam. She continues with distant breath sounds, is 93% on 2 L NC. HR 90s and regular. She is afebrile with a temperature of 37.6degrees. Serum lactate is normal. Systolic blood pressure is 110 at 5:30 p.m.. Blood cultures have been obtained here. I spoke with Dr. Frazier to apprise him of the patient's hypotension. At this point no antibiotics are being started. If she becomes hypotensive again I will treat her empirically for pneumonia. Differential Diagnosis: I considered a differential diagnosis including but not limited to pulmonary infectious process, influenza or other viral syndrome, COPD, asthma, pulmonary embolus and congestive heart failure. - Data Points Laboratory Results: Laboratory Results 06/03/17 16:15 06/03/17 16:15 06/03/17 06/03/17 06/03/17 16:25 16:15 16:15 WBC 20.68 10^3/uL H 10^3/uL (3.80-9.50) RBC 4.38 10^6/uL 10^6/uL (4.18-5.33) Hgb 13.6 g/dL g/dL (12.6-16.3) Hct 38.4 % % (38.0-47.0) MCV 87.7 fL fL (81.5-99.8) MCH 31.1 pg pg (27.9-34.1) MCHC 35.4 g/dL g/dL (32.4-36.7) RDW 12.6 % % (11.5-15.2) Plt Count 276 10^3/uL 10^3/uL (150-400) MPV 9.1 fL fL (8.7-11.7) Neut % (Auto) 84.2 % H % (39.3-74.2) Lymph % (Auto) 6.9 % L % (15.0-45.0) [place] % (Auto) 7.8 % % (4.5-13.0) Eos % (Auto) 0.3 % L % (0.6-7.6) Baso % (Auto) 0.2 % L % (0.3-1.7) Nucleat RBC Rel Count 0.0 % % (0.0-0.2) Absolute Neuts (auto) 17.40 10^3/uL H 10^3/uL (1.70-6.50) Absolute Lymphs (auto) 1.42 10^3/uL 10^3/uL (1.00-3.00) Absolute Monos (auto) 1.62 10^3/uL H 10^3/uL (0.30-0.80) Absolute Eos (auto) 0.07 10^3/uL 10^3/uL (0.03-0.40) Absolute Basos (auto) 0.05 10^3/uL 10^3/uL (0.02-0.10) Absolute Nucleated RBC 0.00 10^3/uL 10^3/uL (0-0.01) Immature Gran % 0.6 % % (0.0-1.1) Immature Gran # 0.12 10^3/uL H 10^3/uL (0.00-0.10) Sodium 133 mEq/L L mEq/L (134-144) Potassium 3.9 mEq/L mEq/L (3.5-5.2) Chloride 96 mEq/L L mEq/L (97-110) Carbon Dioxide 23 mEq/l mEq/l (22-31) Anion Gap 14 mEq/L mEq/L (8-16) BUN 20 mg/dL mg/dL (7-23) Creatinine 0.6 mg/dL mg/dL (0.6-1.0) Estimated GFR > 60 Glucose 110 mg/dL H mg/dL (70-100) Calcium 8.8 mg/dL mg/dL (8.5-10.4) Procalcitonin Pending Influenza A,B Rapid 06/03/17 15:05 WBC RBC Hgb Hct MCV MCH MCHC RDW Plt Count MPV Neut % (Auto) Lymph % (Auto) [place] % (Auto) Eos % (Auto) Baso % (Auto) Nucleat RBC Rel Count Absolute Neuts (auto) Absolute Lymphs (auto) Absolute Monos (auto) Absolute Eos (auto) Absolute Basos (auto) Absolute Nucleated RBC Immature Gran % Immature Gran # Sodium Potassium Chloride Carbon Dioxide Anion Gap BUN Creatinine Estimated GFR Glucose Calcium Procalcitonin Influenza A,B Rapid NEGATIVE FOR FLU (NEGATIVE) Medications Given: Discontinued Medications Acetaminophen (Tylenol) 650 mg PO EDNOW ONE Stop: 06/03/17 15:07 Last Admin: 06/03/17 15:13 Dose: 650 mg Albuterol/Ipratropium (Duoneb) 3 ml IH EDNOW ONE Stop: 06/03/17 15:06 Last Admin: 06/03/17 15:13 Dose: 3 ml Methylprednisolone Sodium Succinate (Solu-Medrol) 125 mg IVP EDNOW ONE Stop: 06/03/17 16:32 Last Admin: 06/03/17 16:34 Dose: 125 mg Ondansetron HCl (Zofran Odt) 4 mg PO EDNOW ONE Stop: 06/03/17 15:07 Last Admin: 06/03/17 15:13 Dose: 4 mg Departure - Departure Disposition: [facility] Acute Clinical Impression: Chronic obstructive pulmonary disease with acute exacerbation Acute bronchitis Qualifiers: Bronchitis organism: unspecified organism Qualified Code(s): J20.9 - Acute bronchitis, unspecified Condition: Fair
[2017-06-03] MEDS ORDERED: predniSONE 20 MG TAB PO ONE (16:17)
[2017-06-03 16:29] LABS: % IMMATURE GRANULYOCYTES 0.6 % (0.0-1.1); ABSOLUTE IMMATURE GRANULOCYTES 0.12 10^3/uL (0.00-0.10); ADD DIFF? NO; ADD MORPH? NO; ADD SCAN? NO; ATYPICAL LYMPHOCYTE FLAG 0 (0-99); FRAGMENT RBC FLAG 0 (0-99); HEMATOCRIT 38.4 % (38.0-47.0); HEMOGLOBIN 13.6 g/dL (12.6-16.3); LEFT SHIFT FLG 10 (0-99); LIPEMIA HEMOLYSIS FLAG 90 (0-99); MEAN CELL HEMOGLOBIN 31.1 pg (27.9-34.1); MEAN CELL HEMOGLOBIN CONCENTR. 35.4 g/dL (32.4-36.7); MEAN CELL VOLUME 87.7 fL (81.5-99.8); MEAN PLATELET VOLUME 9.1 fL (8.7-11.7); PLATELET CLUMPS FLAG 10 (0-99); PLATELET COUNT 276 10^3/uL (150-400); RED BLOOD CELL COUNT 4.38 10^6/uL (4.18-5.33); RED CELL DISTRIBUTION WIDTH 12.6 % (11.5-15.2)
[2017-06-03] MEDS ORDERED: methylPREDNISolone SOD SUCC 125 MG/2 ML VIAL IVP ONE (16:31)
[2017-06-03 16:44] LABS: ANION GAP 14 mEq/L (8-16); CALCIUM 8.8 mg/dL (8.5-10.4); CARBON DIOXIDE 23 mEq/l (22-31); CHLORIDE 96 mEq/L (97-110); CREATININE 0.6 mg/dL (0.6-1.0); GLOMERULAR FILTRATION RATE > 60; GLUCOSE 110 mg/dL (70-100); POTASSIUM 3.9 mEq/L (3.5-5.2); SODIUM 133 mEq/L (134-144)
[2017-06-03] MEDS ORDERED: ONDANSETRON DISINTEGRATING 4 MG TAB PO PRN (16:50)
[2017-06-03] MEDS ORDERED: ONDANSETRON 4 MG/2 ML VIAL IVP PRN (16:50)
[2017-06-03] MEDS ORDERED: ACETAMINOPHEN 325 MG TAB PO PRN (16:50)
[2017-06-03] MEDS ORDERED: ALBUTEROL 3 ML DEYVIAL IH PRN (16:50)
[2017-06-03] MEDS ORDERED: NS 1,000 ML IV ONE (17:15)
--- NOTE | 2017-06-03 17:34 | PDGENHP ---
History and Physical - Chief Complaint Acute cough - History of Present Illness PCP: Dr. Arguelles Primary Pulm: Dr. Perez Primary Cards: Dr. Koch HPI: 72 yo F p/w acute cough characterized as productive w/ associated shortness of breath, fatigue, and headache. Onset of symptoms one day ago, duration persistent thereafter. She has also noted increased heart rate from her baseline around 60bpm. She was in usual state of health on 06/02 and exercised vigorously, feeling unusually fatigued prior to bed. She awoke at 3 a.m. 06/03 with a headache, which is unusual for her; she also noted the aforementioned cough, and then began feeling short of breath, exacerbated by exertion. She attempted to stabilize w/ home albuterol, w/o effect. She notes that the cough/SOB are significantly alleviated w/ the use of pred/duonebs at [facility] [place]. History Information - Allergies/Home Medication List Allergies/Adverse Reactions: azithromycin [Azithromycin] Allergy (Intermediate, Verified 06/03/17 14:34) "GETS WORSE NOT BETTER" WITH THIS MED PAIN MEDS Allergy (Intermediate, Uncoded 10/08/16 13:48) Vomiting PILLS Allergy (Uncoded 10/08/16 13:48) Other-Enter Comments Home Medications: Aspirin EC [Aspirin EC 81 mg (*)] 81 mg PO HS 06/03/17 [Last Taken 06/03/17] Atorvastatin Calcium [Lipitor 10 mg (*)] 10 mg PO HS 06/03/17 [Last Taken ] Cetirizine [ZyrTEC 10 mg (*)] 10 mg PO DAILY 06/03/17 [Last Taken 06/03/17] Levothyroxine [Synthroid 88 mcg (*)] 88 mcg PO DAILY06 06/03/17 [Last Taken ] Losartan Potassium [Cozaar 25 mg (*)] 25 mg PO DAILY 06/03/17 [Last Taken ] Omeprazole [Prilosec 20 mg] 20 mg PO DAILY 06/03/17 [Last Taken 06/03/17] Study/Research Inhaler 2 sprays PO BID 06/03/17 [Last Taken 06/03/17 08:00] Study/Research Inhaler 2 sprays PO PRN PRN 06/03/17 [Last Taken 06/02/17] Tears/Dextran 70/Hypromellose [Natural Balance Tears (*)] 1 drop EACHEYE PRN PRN 06/03/17 [Last Taken Unknown] Zolpidem Tartrate 10 mg PO HS 06/03/17 [Last Taken 06/02/17] I have personally reviewed and updated: family history, medical history, social history, surgical history - Past Medical History COPD (on trial Rx + albuterol), hypertension, hyperlipidemia Additional medical history: thyroid cancer, now w/ hypothyroidism. esophageal stricture - Surgical History Additional surgical history: partial thyroidectomy 2000. esophageal dilations w / EGD - Family History Additional family history: father w/ NC in 50s - Social History Smoking Status: Former smoker Alcohol Use: Occasionally Drug Use: None Additional social history: independenty ADLs, very physically active, recently caring for children Review of Systems Review of Systems: ROS: 10pt was reviewed & negative except for what was stated in HPI & below Constitutional: Reports: weakness Respiratory: Reports: cough, shortness of breath Neurological: Reports: other (headache) Physical Exam Physical Exam: Temp Pulse Resp BP Pulse Ox 37 C 92 20 96/48 L 94 06/03/17 17:16 06/03/17 17:16 06/03/17 17:16 06/03/17 17:16 06/03/17 17:16 Constitutional: no apparent distress, not in pain, chronically ill appearing, No uncomfortable Eyes: PERRL, anicteric sclera, EOMI Ears, Nose, Mouth, Throat: moist mucous membranes, hearing normal, ears appear normal, no oral mucosal ulcers Cardiovascular: regular rate and rhythym, no murmur, rub, or gallop, No edema Respiratory: reduced air movement (on expiration bilat), expiratory wheeze, No inspiratory crackles, No bronchial breath sounds, No respiratory distress Gastrointestinal: normoactive bowel sounds, soft, non-tender abdomen, no palpable masses Skin: warm, normal color, No rash Neurologic: AAOx3, sensation intact bilaterally, weakness, No facial droop Psychiatric: interacting appropriately, not anxious, not encephalopathic, thought process linear Lymph, Heme, Immunologic: no cervical LAD, other (no submanibular tender LAD) Lab Data & Imaging Review 06/03/17 16:15 06/03/17 16:15 WBC 20.68 10^3/uL (3.80-9.50) H 06/03/17 16:15 RBC 4.38 10^6/uL (4.18-5.33) 06/03/17 16:15 Hgb 13.6 g/dL (12.6-16.3) 06/03/17 16:15 Hct 38.4 % (38.0-47.0) 06/03/17 16:15 MCV 87.7 fL (81.5-99.8) 06/03/17 16:15 MCH 31.1 pg (27.9-34.1) 06/03/17 16:15 MCHC 35.4 g/dL (32.4-36.7) 06/03/17 16:15 RDW 12.6 % (11.5-15.2) 06/03/17 16:15 Plt Count 276 10^3/uL (150-400) 06/03/17 16:15 MPV 9.1 fL (8.7-11.7) 06/03/17 16:15 Neut % (Auto) 84.2 % (39.3-74.2) H 06/03/17 16:15 Lymph % (Auto) 6.9 % (15.0-45.0) L 06/03/17 16:15 [place] % (Auto) 7.8 % (4.5-13.0) 06/03/17 16:15 Eos % (Auto) 0.3 % (0.6-7.6) L 06/03/17 16:15 Baso % (Auto) 0.2 % (0.3-1.7) L 06/03/17 16:15 Nucleat RBC Rel Count 0.0 % (0.0-0.2) 06/03/17 16:15 Absolute Neuts (auto) 17.40 10^3/uL (1.70-6.50) H 06/03/17 16:15 Absolute Lymphs (auto) 1.42 10^3/uL (1.00-3.00) 06/03/17 16:15 Absolute Monos (auto) 1.62 10^3/uL (0.30-0.80) H 06/03/17 16:15 Absolute Eos (auto) 0.07 10^3/uL (0.03-0.40) 06/03/17 16:15 Absolute Basos (auto) 0.05 10^3/uL (0.02-0.10) 06/03/17 16:15 Absolute Nucleated RBC 0.00 10^3/uL (0-0.01) 06/03/17 16:15 Immature Gran % 0.6 % (0.0-1.1) 06/03/17 16:15 Immature Gran # 0.12 10^3/uL (0.00-0.10) H 06/03/17 16:15 VBG Lactic Acid 0.8 mmol/L (0.7-2.1) 06/03/17 17:10 Sodium 133 mEq/L (134-144) L 06/03/17 16:15 Potassium 3.9 mEq/L (3.5-5.2) 06/03/17 16:15 Chloride 96 mEq/L (97-110) L 06/03/17 16:15 Carbon Dioxide 23 mEq/l (22-31) 06/03/17 16:15 Anion Gap 14 mEq/L (8-16) 06/03/17 16:15 BUN 20 mg/dL (7-23) 06/03/17 16:15 Creatinine 0.6 mg/dL (0.6-1.0) 06/03/17 16:15 Estimated GFR > 60 06/03/17 16:15 Glucose 110 mg/dL (70-100) H 06/03/17 16:15 Calcium 8.8 mg/dL (8.5-10.4) 06/03/17 16:15 Influenza A,B Rapid NEGATIVE FOR FLU (NEGATIVE) 06/03/17 15:05 Visualized and Interpreted Chest x-ray results: Yes Chest X-Ray results: no infiltrate, other (hyperinflated, peribronchial thickening) Assessment & Plan Assessment: 72 yo F p/w acute COPD exacerbation Plan: # COPD exacerbation. Acute, new problem to this provider, further w/u indicated. Evidenced by SOB/exp wheezing/hypoxia, likely URI precipitant - get RVP, Sputum Cx - check Procalcitonin level given significantly elevated WBC (pre-steroids) - r/o PE w/ dimer - d/w Dr. Sandhu, she reports she has counseled patient about diagnosis and she is amenable to steroids/duonebs at , will cont Pred 60 daily (07/20) and scheduled duonebs - Augmentin D1/5 to shorten duration sx, mucinex, tessalon PRN - d/w Dr. Serrano, he recommends that patient hold the study Rx and we treat this situation w/ standard therapy for COPD exacerbation, and when she has stabilized as outpatient she should f/u w/ Dr. Perez so they can reassess whether to restart trial Rx # HTN. Hypotensive on presentation, fluid responsive, normal lactic, hold home ARB and monitor SBP # Leukocytosis. Unclear chronicity, reviewed outside records (03/23/17 demonstrating WBC 22,400 for unclear reasons, also neutrophil predominance) - will eval for bacteria/viral infxn as above Diet. Regular PPx. High risk, lovenox 40 Code. Full Dispo. ADD 06/04, pending stabilization of above.
[2017-06-03] MEDS ORDERED: BENZONATATE 100 MG CAP PO PRN (19:07)
[2017-06-03] MEDS ORDERED: TEARS/DEXTRAN 70/HYPROMELLOSE 15 ML OPHT.BTL EACHEYE PRN (19:07)
[2017-06-03] MEDS ORDERED: guaiFENesin/CODEINE PHOS 10 ML UDCUP PO PRN (19:08)
[2017-06-03] MEDS: ATORVASTATIN CALCIUM 10 MG TAB PO SCH (20:48)
[2017-06-03] MEDS: ZOLPIDEM TARTRATE 5 MG TAB PO SCH (20:48)
[2017-06-03] MEDS: ASPIRIN EC 81 MG TAB PO SCH (20:48)
[2017-06-03] MEDS: AMOX TR/K CLAV 400 MG/5 ML 100ML BULK BTL PO SCH (20:49)
[2017-06-03] MEDS ORDERED: AMOXICILLIN/CLAVULANATE POT 875/125 MG TAB PO SCH (21:00)
[2017-06-03] MEDS ORDERED: guaiFENesin 600 MG TAB.ER PO SCH (21:00)
[2017-06-03] MEDS ORDERED: NON-FORMULARY NEW DRUG (Zolpidem Tartrate [Zolpidem Tartrate] 10 MG) PO SCH (21:00)
[2017-06-03] MEDS: IPRATROPIUM/ALBUTEROL 3 ML DEYVIAL IH SCH (21:30)
[2017-06-03] MEDS ORDERED: GUAIFENESIN/DM 10 ML UDCUP PO PRN (22:56)
[2017-06-04 04:55] LABS: % IMMATURE GRANULYOCYTES 0.6 % (0.0-1.1); ABSOLUTE IMMATURE GRANULOCYTES 0.09 10^3/uL (0.00-0.10); ADD DIFF? NO; ADD MORPH? NO; ADD SCAN? NO; ATYPICAL LYMPHOCYTE FLAG 0 (0-99); FRAGMENT RBC FLAG 0 (0-99); HEMATOCRIT 36.9 % (38.0-47.0); HEMOGLOBIN 12.8 g/dL (12.6-16.3); LEFT SHIFT FLG 10 (0-99); LIPEMIA HEMOLYSIS FLAG 90 (0-99); MEAN CELL HEMOGLOBIN 30.9 pg (27.9-34.1); MEAN CELL HEMOGLOBIN CONCENTR. 34.7 g/dL (32.4-36.7); MEAN CELL VOLUME 89.1 fL (81.5-99.8); PLATELET CLUMPS FLAG 0 (0-99); PLATELET COUNT 269 10^3/uL (150-400); RED BLOOD CELL COUNT 4.14 10^6/uL (4.18-5.33); RED CELL DISTRIBUTION WIDTH 12.6 % (11.5-15.2)
[2017-06-04 05:09] LABS: ALANINE AMINOTRANSFERASE 48 IU/L (9-52); ALBUMIN 3.2 g/dL (3.5-5.0); ALKALINE PHOSPHATASE 126 IU/L (38-126); ANION GAP 10 mEq/L (8-16); ASPARTATE AMINOTRANSFERASE 32 IU/L (14-46); BILIRUBIN,TOTAL 0.7 mg/dL (0.1-1.4); CALCIUM 9.2 mg/dL (8.5-10.4); CARBON DIOXIDE 26 mEq/l (22-31); CHLORIDE 105 mEq/L (97-110); CREATININE 0.7 mg/dL (0.6-1.0); GLOMERULAR FILTRATION RATE > 60; GLUCOSE 154 mg/dL (70-100); POTASSIUM 4.6 mEq/L (3.5-5.2); SODIUM 141 mEq/L (134-144)
[2017-06-04] MEDS: LEVOTHYROXINE 88 MCG TAB PO SCH (05:32)
[2017-06-04] MEDS: IPRATROPIUM/ALBUTEROL 3 ML DEYVIAL IH SCH ×4 (06:21→22:10)
[2017-06-04] MEDS: PANTOPRAZOLE SODIUM 40 MG TAB PO SCH (07:26)
[2017-06-04] MEDS ORDERED: NON-FORMULARY NEW DRUG (Omeprazole [Prilosec 20 Mg] 20 MG) PO SCH (09:00)
[2017-06-04] MEDS ORDERED: predniSONE 20 MG TAB PO SCH (09:00)
[2017-06-04] MEDS: CETIRIZINE 10 MG TAB PO SCH (10:46)
[2017-06-04] MEDS: AMOX TR/K CLAV 400 MG/5 ML 100ML BULK BTL PO SCH (10:47)
--- NOTE | 2017-06-04 11:13 | ASMTCASEMG ---
Living Arrangements What is your living Answers: With Spouse arrangement? Who do you live with? Type Of Residence What kind of residence do Answers: House you live in? Discharge Plan Comments Coordination Status Comments Notes: Pt is a 72 y/o female admitted for a COPD exacerbation. Anticipates that pt will d/c independent when medically stable w/ supportive . OT has been ordered. CM available for d/c needs. Date Signed: 06/04/2017 11:12 AM Electronically Signed By:URIEL Ervin
[2017-06-04] MEDS: ENOXAPARIN 40 MG/0.4 ML SYR SC SCH (12:19)
--- NOTE | 2017-06-04 14:45 | HOSPPROG ---
Hospitalist Progress Note Assessment/Plan: # Acute COPD exacerbation - 2/2 acute viral infection CXR (personally reviewed and interpreted) no pneumonia - cont PO prednisone - cont inhaled bronchodilators - dc antibiotics from admit # AHRF 2/2 above - work on weaning O2 today- oxygen saturations 94% on 2L # Acute Viral URI - resp viral panel confirmed entero/rhinoviruses procalcitonin low - dc antibiotics - continue cough suppression # HTN- SBP 120-130 without home med - cont to hold today # Leukocytosis - improved 20-> 15 with supportive care # proph - lovenox # diet- regular # dispo - > 2 MN as requiring ongoing monitoring for acute COPD exacerbation- if pt continues to improve will plan on dc tomorrow I have discussed the case with RN -will hold on insulin tx for prednisone induce hyperglycemia as BS in 150's currently Subjective: brething more comfortably Objective: Vital Signs Temp Pulse Resp BP Pulse Ox 36.5 C 88 12 127/68 H 93 06/04/17 11:10 06/04/17 11:10 06/04/17 11:10 06/04/17 11:10 06/04/17 11:10 Microbiology 06/04/17 06:05 - Final Sputum, Expectorated 06/03/17 19:40 Respiratory Panel (PCR) - Final Nasal, Sinus - Other Human Rhinovirus/Enterovirus Laboratory Results 06/04/17 04:13 06/04/17 04:13 06/03/17 06/04/17 06/05/17 05:59 05:59 05:59 Intake Total 1300 Balance 1300 - Physical Exam Constitutional: chronically ill appearing Eyes: anicteric sclera Ears, Nose, Mouth, Throat: moist mucous membranes Cardiovascular: regular rate and rhythym Respiratory: reduced air movement, No expiratory wheeze Gastrointestinal: normoactive bowel sounds Genitourinary: no bladder fullness Skin: warm Musculoskeletal: No asymmetric calves Neurologic: AAOx3 Psychiatric: interacting appropriately, not anxious Lymph, Heme, Immunologic: no cervical LAD ICD10 Worksheet Patient Problems: Problems Problem Status Onset Acute bronchitis Acute Chronic obstructive pulmonary disease with acute exacerbation Acute
[2017-06-04] MEDS ORDERED: BISACODYL 10 MG SUPP PR PRN (17:33)
[2017-06-04] MEDS ORDERED: MAGNESIUM HYDROXIDE 30 ML UDCUP PO PRN (17:33)
[2017-06-04] MEDS ORDERED: LACTULOSE 20 GM/30 ML UDCUP PO PRN (17:33)
[2017-06-04] MEDS ORDERED: POLYETHYLENE GLYCOL 3350 17 GM PKT PO PRN (17:33)
[2017-06-04] MEDS: ATORVASTATIN CALCIUM 10 MG TAB PO SCH (20:53)
[2017-06-04] MEDS: SENNOSIDES/DOCUSATE SODIUM TAB PO SCH (20:53)
[2017-06-04] MEDS: ASPIRIN EC 81 MG TAB PO SCH (20:54)
[2017-06-04] MEDS: ZOLPIDEM TARTRATE 5 MG TAB PO SCH (22:31)
[2017-06-05] MEDS: LEVOTHYROXINE 88 MCG TAB PO SCH (05:05)
[2017-06-05] MEDS: IPRATROPIUM/ALBUTEROL 3 ML DEYVIAL IH SCH ×2 (05:24→10:10)
[2017-06-05 05:33] LABS: HEMATOCRIT 34.1 % (38.0-47.0); HEMOGLOBIN 11.9 g/dL (12.6-16.3); MEAN CELL HEMOGLOBIN 30.8 pg (27.9-34.1); MEAN CELL HEMOGLOBIN CONCENTR. 34.9 g/dL (32.4-36.7); MEAN CELL VOLUME 88.3 fL (81.5-99.8); RED BLOOD CELL COUNT 3.86 10^6/uL (4.18-5.33); RED CELL DISTRIBUTION WIDTH 12.6 % (11.5-15.2)
[2017-06-05] MEDS: CETIRIZINE 10 MG TAB PO SCH (08:03)
[2017-06-05] MEDS: PANTOPRAZOLE SODIUM 40 MG TAB PO SCH (08:03)
[2017-06-05] MEDS: SENNOSIDES/DOCUSATE SODIUM TAB PO SCH (08:03)
[2017-06-05] MEDS: ENOXAPARIN 40 MG/0.4 ML SYR SC SCH (08:04)
--- NOTE | 2017-06-05 09:05 | PDMN ---
Medical Necessity Medical necessity: change to IP; los>2mn for acute COPD exacerbation w/ associated acute heart failure, acute viral URI, and leukocytosis; requires continued steroid and inhaled bronchodilators, O2 weaning; comorbid htn, hld, hx thyroid cancer, esoph stricture; per order and H&P 06/04/17
[2017-06-05 09:13] VITALS: BP 114/64; TEMP 97.5
[2017-06-05] MEDS ORDERED: predniSONE 20 MG TAB PO SCH (09:20)
[2017-06-05 10:17] VITALS: PULSE 88; RESP 16; O2SAT 92
--- NOTE | 2017-06-05 12:14 | ASDISCHSUM ---
Discharge Information Plan Status:Home with No Needs Medically Cleared to Leave:06/04/2017 Discharge Date:06/05/2017 11:41 AM CM D/C Disposition: ADT D/C Disposition:Home, Routine, Self-Care Projected Discharge Date:06/05/2017 12:00 AM Transportation at D/C: Discharge Delay Reason: Follow-Up Date:06/05/2017 12:00 AM Discharge Slot: Final Diagnosis: Placement Information Patient Contact Information Contact Name:LEAH Relationship: Address:[address] City:[place] Alternate Phone: [facility]/Zip Code:[place] [address] Email: Financial Information Financial Class: Primary Plan Desc:MEDICARE INPATIENT Primary Plan Number:[id number] Secondary Plan Desc:[facility] Secondary Plan Number:[id number] Assessment Information [facility] Initial CM Assessment Living Arrangements What is your living Answers: With Spouse arrangement? Who do you live with? Type Of Residence What kind of residence do Answers: House you live in? Discharge Plan Comments Coordination Status Comments Notes: Pt is a 72 y/o female admitted for a COPD exacerbation. Anticipates that pt will d/c independent when medically stable w/ supportive . OT has been ordered. CM available for d/c needs. Date Signed: 06/04/2017 11:12 AM Electronically Signed By:URIEL Ervin Intervention Information Intervention Type:*EARNEST-Signed Date of Service:06/04/2017 09:06 AM Patient Type:Observation Staff Member:Charlotte Jj Hours: Discipline: Severity: Comment: Intervention Type:*IM-Signed Date of Service:06/05/2017 11:34 AM Patient Type:Inpatient Staff Member:Charltote Jj Hours: Discipline: Severity: Comment:
--- NOTE | 2017-06-06 01:58 | GDS ---
[f rep st] DISCHARGE SUMMARY DISCHARGE DIAGNOSES: 1. Acute chronic obstructive pulmonary disease exacerbation. 2. Acute hypoxic respiratory failure secondary to chronic obstructive pulmonary disease. 3. Acute viral upper respiratory infection secondary to enterovirus and rhinovirus. 4. Hypertension. 5. Leukocytosis. HISTORY OF PRESENT ILLNESS: This is a 72-year-old female, who presents on 06/03/2017 with complaints of shortness of breath. For details of the patient's initial presentation, please see the history a nd physical dated 06/03/2017. CONSULTATIVE SERVICES: None. PROCEDURES: None. HOSPITAL COURSE BY ISSUE: 1. Acute chronic obstructive pulmonary disease exacerbation. Patient has a known history of COPD on a trial medication with albuterol, who presents with acute shortness of breath. Was found to be rhi no and enterovirus positive on respiratory PCR. Patient was admitted, treated with steroids, inhaled medications. We held her study drug during the acute presentation and have asked her to hold it unt il her completion of prednisone. Patient was markedly improved on the day of disposition, ambulating around the floors without oxygen and without complaint. She will be discharged on inhaled DuoNeb un til resuming her study drug at the end of the week. Patient will follow in the outpatient setting wi th her pulmonary physicians. 2. Hypertension. Patient's blood pressures did not require medications. We have held these medicat ions at disposition as her systolic blood pressures were in the 100s to 110s during her hospital stay . MEDICATIONS AT THE TIME OF DISPOSITION: Please reference the med rec printed on 06/05/2017. FOLLOWUP APPOINTMENTS: Include with Pulmonary when next able to be seen, preferably in the next 2-4 weeks. With her primary care provider for ongoing management of her medical comorbidities. PENDING STUDIES: At the time of this discharge include blood cultures and sputum cultures, which are preliminary, no growth to date at the time of discharge. TIME SPENT: I spent greater than 30 minutes in the planning and coordination of this discharge. /[id number]/MODL
== END 2017-06-05 11:41 | disposition home or self-care (01) | DRG 190 ==
LOC: CED 14:21 → CEDHOLD 16:39 → F3E 18:16 → OBSVTOIN 06-04 14:03
PROVIDERS: ADMIT Internal Medicine; ATTEND Internal Medicine
DX: J44.1 Chronic obstructive pulmonary disease with (acute) exacerbation (principal); J06.9 Acute upper respiratory infection, unspecified; B97.89 Other viral agents as the cause of diseases classified elsewhere; B97.10 Unspecified enterovirus as the cause of diseases classified elsewhere; J96.01 Acute respiratory failure with hypoxia; I10 Essential (primary) hypertension; E78.5 Hyperlipidemia, unspecified; Z85.850 Personal history of malignant neoplasm of thyroid; Z87.891 Personal history of nicotine dependence
CPT/HCPCS: 71020-PO; 80048-PO; 83605-PO; 85025-PO; 87400-PO; 96374; 97165-GO; G0378; G8987-GO-CI; G8988-GO-CI; G8989-GO-CI; J1650; J2930

== ENCOUNTER → 2017-06-11 | Outpatient (CLI) | payer OTHER | LOC: CIMAGING 14:02 | PROVIDERS: ATTEND Internal Medicine | DX: J40 Bronchitis, not specified as acute or chronic (principal) | CPT/HCPCS: 71020-PO ==

== ENCOUNTER 2017-07-23 16:07 | Emergency (ER) | payer OTHER ==
[2017-07-23] MEDS ORDERED: NS 500 ML IV ONE (16:09)
[2017-07-23] MEDS ORDERED: ASPIRIN 81 MG CHEWABLE TAB PO ONE (16:09)
--- NOTE | 2017-07-23 16:23 | CPEKG ---
Heart Rate: 76 RR Interval: 789 QRSD Interval: 78 QT Interval: 372 QTC Interval: 419 QRS [place]: 41 T Wave [place]: 44 EKG Severity - ABNORMAL ECG - EKG Impression: A-FLUTTER W/ PREDOM 3:1 AV BLOCK, A-RATE 246 EKG Impression: CONSIDER ANTEROSEPTAL INFARCT Electronically Signed By: Millie Chahal 23-Jul-2017 17:00:42
[2017-07-23 16:41] LABS: PLATELET COUNT 354 10^3/uL (150-400)
--- NOTE | 2017-07-23 16:50 | EDPHY ---
H & P Time Seen by Provider: 07/23/17 16:08 Past Medical/Surgical History: HPI Body aches, nausea, fatigue. 72-year-old female from up stairs. Sent down from her primary care physician's office. This is Dr. Arguelles. Patient reported that since yesterday afternoon she has felt very fatigued. She presented to his office with this complaint and stated that she had some nausea this morning and 1 episode of nonbilious nonbloody vomiting. She then described having an ache like sensation across her upper back with radiation into both shoulders but more so the left shoulder. She reports having this since this morning. She reports that she does not have this pain at rest but it is present when she moves her torso or walks. She denies new shortness of breath. She also reports having a dull gradual onset headache which has persisted most of the day. ROS: Constitutional: No fever, no chills. As above. Eyes: No discharge. No changes in vision. ENT: No sore throat. No nasal congestion or rhinorrhea. Respiratory: No cough. No shortness of breath. Cardiac: No chest pain, no palpitations. Gastrointestinal: No abdominal pain, no vomiting, no diarrhea. Genitourinary: No hematuria. No dysuria or increased frequency with urination. Musculoskeletal: As above. No neck pain. Skin: No rashes. Neurological: As above. No focal weakness or altered sensation. Past medical history: COPD, valley fever, hypertension, hyperlipidemia, thyroid cancer, now with hypothyroid, esophageal stricture, esophageal dilations. Primary care physician is Dr. Arguelles. Social history: Former smoker. Quit 20 years ago. Physical Exam: General Appearance: Alert, no distress. This patient is responding to questions appropriately and in full sentences. This patient appears well- hydrated and well-nourished. Eyes: Pupils equal and round no pallor or injection. No lid edema, erythema or injection. Respiratory: There are no retractions, lungs are clear to auscultation with good air movement bilaterally. Cardiovascular: Regular rate and rhythm. No murmur. Chest wall is stable on AP and lateral palpation. Gastrointestinal: Abdomen is soft and nontender, no masses, bowel sounds normal. No focal tenderness at McBurney's point. No Bolaños sign. Neurological: Motor sensory function is grossly intact. Cranial nerves are normal. Gait is normal. Skin: Warm and dry, no rashes. Musculoskeletal: Neck is supple and nontender. No pain on flexion of the neck. Extremities are symmetrical. All joints range without pain or impingement. Psychiatric: No agitation. No depression. Database: EKG: EKG time is 4:20 p.m.; EKG shows a narrow complex normal sinus rhythm with a ventricular rate of 76. The [place], QRS, QT intervals are within normal limits. QS waves in anterior precordial leads. There are no ST-T wave changes indicative of ischemic or injury pattern. No evidence of right heart strain. Interpreted by me. Imaging: Chest x-ray AP portable; the cardiac mediastinal silhouette is unremarkable. COPD changes. No evidence of infiltrate or pneumothorax. No acute cardiopulmonary disease process noted. Interpreted by me. CT angiogram of chest; no PE. Chronic airway disease. Results discussed with staff radiologist Dr. Hi Abebe. Procedures: Emergency department course: IV placed. Vital signs reviewed. She is moderately hypertensive. Afebrile. Vital signs otherwise normal. She was given 324 mg of chewed aspirin. She reports that when she is just sitting still she is not bothered by her upper back pain. She was given 324 mg of chewed aspirin. 5:15 p.m., patient re-evaluated. Resting comfortably at this time. Denies any pain. Discussed results of blood work and elevated D-dimer. She consents for CT imaging to evaluate for pulmonary embolism. I discussed admission for observation. She does not want to do this. I explained the risks of refusing admission. In my professional opinion she understands these risks. The patient competently engages in shared decision making. They demonstrate capacitance to make decisions. She does agree to stay for a 2nd troponin which will be drawn at 6:35 p.m.. She will be started on IV normal saline prior to the CT sample 250 cc to 500 cc to be given. 5:50 p.m., patient re-evaluated. She has returned from CT. Waiting on results. She denies any chest discomfort or other complaints at this time. 7:05 p.m., 2nd troponin is within normal limits. Patient re-evaluated and results discussed. She denies any pain, shortness of breath or other discomfort. I again advised admission for observation overnight. She does not want to do this. She is requesting discharge. I discussed follow-up with her. Strict return to emergency department precautions were reviewed with her. All of her questions were answered. She was discharged from the emergency department against medical advice. Differential Diagnosis: The differential diagnosis on this patient includes but is not limited to influenza, viral syndrome. Acute coronary syndrome, pulmonary embolism unlikely. This represents a partial list of diagnoses considered. These considerations are based on history, physical exam, past history, reassessment and diagnostic testing. Smoking Status: Former smoker Constitutional: Initial Vital Signs Temperature (C) 36.6 C 07/23/17 16:22 Heart Rate 71 07/23/17 16:22 Respiratory Rate 18 07/23/17 16:22 Blood Pressure 157/85 H 07/23/17 16:22 O2 Sat (%) 97 07/23/17 16:22 O2 Delivery Mode Room Air Allergies/Adverse Reactions: azithromycin [Azithromycin] Allergy (Intermediate, Verified 06/03/17 14:34) "GETS WORSE NOT BETTER" WITH THIS MED PAIN MEDS Allergy (Intermediate, Uncoded 10/08/16 13:48) Vomiting PILLS Allergy (Uncoded 10/08/16 13:48) Other-Enter Comments Home Medications: Medication Instructions Recorded Aspirin EC [Aspirin EC 81 mg (*)] 81 mg PO HS 06/03/17 Atorvastatin Calcium [Lipitor 10 10 mg PO HS 06/03/17 mg (*)] Cetirizine [ZyrTEC 10 mg (*)] 10 mg PO DAILY 06/03/17 Levothyroxine [Synthroid 88 mcg 88 mcg PO DAILY06 06/03/17 (*)] Omeprazole [Prilosec 20 mg] 20 mg PO DAILY 06/03/17 Tears/Dextran 70/Hypromellose 1 drop EACHEYE PRN PRN 06/03/17 [Natural Balance Tears (*)] Zolpidem Tartrate 10 mg PO HS 06/03/17 Ipratropium/Albuterol [Combivent 1 inh IH QID #1 mdi 06/05/17 Respimat Inhal [place](*)] guaiFENesin/DEXTROMETHORPHAN 10 ml PO Q4HRS PRN ml 06/05/17 [Robitussin Dm Oral Liquid (*)] predniSONE 40 mg PO DAILY #6 tab 06/05/17 Medical Decision Making - Diagnostics Imaging Results: Imaging Impressions Chest X-Ray 07/23/17 16:09 Impression: Radiographically similar to 06/11/2017. Chest/Thorax CTA 07/23/17 17:11 Impression: 1. No visible pulmonary embolus. 2. Airways disease and bronchitis, with scattered new tree-in-bud nodules that are most likely inflammatory or infectious. 3. Slight improvement in previously noted ground-glass opacities. 4. Coronary artery atherosclerosis. 5. Additional findings, as above. Findings discussed with Millie Chahal MD 07/23/2017 at 1804. E:amm - Data Points Laboratory Results: Laboratory Results 07/23/17 16:35 07/23/17 16:35 07/23/17 07/23/17 07/23/17 18:35 16:35 16:35 WBC RBC Hgb Hct MCV MCH MCHC RDW Plt Count MPV Neut % (Auto) Lymph % (Auto) Wirt % (Auto) Eos % (Auto) Baso % (Auto) Nucleat RBC Rel Count Absolute Neuts (auto) Absolute Lymphs (auto) Absolute Monos (auto) Absolute Eos (auto) Absolute Basos (auto) Absolute Nucleated RBC Immature Gran % Immature Gran # PT INR APTT D-Dimer Sodium 138 mEq/L mEq/L (134-144) Potassium 3.9 mEq/L mEq/L (3.5-5.2) Chloride 103 mEq/L mEq/L (97-110) Carbon Dioxide 23 mEq/l mEq/l (22-31) Anion Gap 12 mEq/L mEq/L (8-16) BUN 27 mg/dL H mg/dL (7-23) Creatinine 0.7 mg/dL mg/dL (0.6-1.0) Estimated GFR > 60 Glucose 107 mg/dL H mg/dL (70-100) Calcium 9.1 mg/dL mg/dL (8.5-10.4) Total Bilirubin 0.6 mg/dL mg/dL (0.1-1.4) Conjugated Bilirubin 0.1 mg/dL mg/dL (0.0-0.5) Unconjugated Bilirubin 0.5 mg/dL mg/dL (0.0-1.1) AST 20 IU/L IU/L (14-46) ALT 28 IU/L IU/L (9-52) Alkaline Phosphatase 81 IU/L IU/L (38-126) Creatine Kinase 23 IU/L IU/L (0-156) CK-MB (CK-2) Fraction 1.80 ng/mL ng/mL (0.00-4.55) Troponin I 0.021 ng/mL ng/mL 0.013 ng/mL ng/mL (0.000-0.034) (0.000-0.034) Total Protein 6.7 g/dL g/dL (6.3-8.2) Albumin 3.5 g/dL g/dL (3.5-5.0) Lipase 87 IU/L IU/L (23-300) Influenza A,B Rapid NEGATIVE FOR FLU (NEGATIVE) 07/23/17 07/23/17 16:35 16:35 WBC 16.03 10^3/uL H 10^3/uL (3.80-9.50) RBC 4.57 10^6/uL 10^6/uL (4.18-5.33) Hgb 13.6 g/dL g/dL (12.6-16.3) Hct 39.6 % % (38.0-47.0) MCV 86.7 fL fL (81.5-99.8) MCH 29.8 pg pg (27.9-34.1) MCHC 34.3 g/dL g/dL (32.4-36.7) RDW 12.6 % % (11.5-15.2) Plt Count 354 10^3/uL 10^3/uL (150-400) MPV 8.9 fL fL (8.7-11.7) Neut % (Auto) 83.1 % H % (39.3-74.2) Lymph % (Auto) 9.7 % L % (15.0-45.0) Wirt % (Auto) 5.8 % % (4.5-13.0) Eos % (Auto) 0.7 % % (0.6-7.6) Baso % (Auto) 0.3 % % (0.3-1.7) Nucleat RBC Rel Count 0.0 % % (0.0-0.2) Absolute Neuts (auto) 13.31 10^3/uL H 10^3/uL (1.70-6.50) Absolute Lymphs (auto) 1.56 10^3/uL 10^3/uL (1.00-3.00) Absolute Monos (auto) 0.93 10^3/uL H 10^3/uL (0.30-0.80) Absolute Eos (auto) 0.11 10^3/uL 10^3/uL (0.03-0.40) Absolute Basos (auto) 0.05 10^3/uL 10^3/uL (0.02-0.10) Absolute Nucleated RBC 0.00 10^3/uL 10^3/uL (0-0.01) Immature Gran % 0.4 % % (0.0-1.1) Immature Gran # 0.07 10^3/uL 10^3/uL (0.00-0.10) PT 13.1 SEC SEC (12.0-15.0) INR 1.00 (0.83-1.16) APTT 31.0 SEC SEC (23.0-38.0) D-Dimer 1.62 ug/mLFEU H ug/mLFEU (0.00-0.50) Sodium Potassium Chloride Carbon Dioxide Anion Gap BUN Creatinine Estimated GFR Glucose Calcium Total Bilirubin Conjugated Bilirubin Unconjugated Bilirubin AST ALT Alkaline Phosphatase Creatine Kinase CK-MB (CK-2) Fraction Troponin I Total Protein Albumin Lipase Influenza A,B Rapid Medications Given: Discontinued Medications Aspirin (Aspirin) 324 mg PO EDNOW ONE Stop: 07/23/17 16:10 Last Admin: 07/23/17 16:32 Dose: 324 mg Sodium Chloride (Ns) 500 mls @ 1,000 mls/hr IV EDNOW ONE PRN Reason: Protocol Stop: 07/23/17 16:38 Last Admin: 07/23/17 16:38 Dose: Not Given Sodium Chloride (Ns) 1,000 mls @ 0 mls/hr IV ONCE ONE PRN Reason: Wide Open Stop: 07/23/17 17:15 Last Admin: 07/23/17 17: Dose: 1,000 mls Departure - Departure Disposition: Against Medical Advice Clinical Impression: Viral syndrome, Upper back pain Condition: Good Instructions: Viral Syndrome (ED), Back Pain (ED) Additional Instructions: Read and follow provided instructions. Follow-up with your primary care physician, Dr. Arguelles, tomorrow for re- evaluation. You should also follow up with our cardiology group within the next 2-3 days to be evaluated and have a stress test done. I have provided you with a referral. Most important, return to the emergency department immediately for worsening symptoms, chest pain, shortness of breath, fever or other serious concerns. Referrals: Rey Arguelles MD [Primary Care Provider] - As per Instructions Javier Pierce MD [Medical Doctor] - As per Instructions
[2017-07-23 16:51] LABS: PROTIME(PATIENT) 13.1 SEC (12.0-15.0)
[2017-07-23 17:00] LABS: CREATINE KINASE 23 IU/L (0-156)
[2017-07-23] MEDS ORDERED: NS 1,000 ML IV ONE (17:14)
[2017-07-23] MEDS ORDERED: IOPAMIDOL (ISOVUE 370) 100 ML BTL IV ONE (17:16)
[2017-07-23 19:16] VITALS: BP 158/72; PULSE 81; RESP 16; TEMP 97.9; O2SAT 94
== END 2017-07-23 19:15 | disposition left against medical advice (07) ==
LOC: CED 16:07
DX: M54.6 Pain in thoracic spine (principal); B34.9 Viral infection, unspecified; J44.9 Chronic obstructive pulmonary disease, unspecified; I10 Essential (primary) hypertension; Z79.82 Long term (current) use of aspirin; Z85.850 Personal history of malignant neoplasm of thyroid; Z87.891 Personal history of nicotine dependence
CPT/HCPCS: 71045; 71275; 93005; 96360; 99285; Q9967; 80048-PO; 80076-PO; 82550-PO; 82553-PO; 83690-PO; 84484-PO; 85025-PO; 85378-PO; 85610-PO; 85730-PO; 87400-PO

== ENCOUNTER → 2017-08-02 | Outpatient (CLI) | payer OTHER ==
[~2017-08-02] MED LIST: IOPAMIDOL (ISOVUE-300) 100 ML BTL ONE
== END ==
LOC: CIMAGING 08:58
PROVIDERS: ATTEND Internal Medicine
DX: R10.32 Left lower quadrant pain (principal)
CPT/HCPCS: 74177; Q9967

== ENCOUNTER 2017-08-06 10:50 | Inpatient (IN) | payer OTHER ==
--- NOTE | 2017-08-06 11:15 | EDPHY ---
H & P Time Seen by Provider: 08/06/17 11:00 HPI/ROS: Chief Complaint: Fatigue, nausea, vomiting HPI: 72-year-old woman with a history of COPD, hypothyroidism is presenting complaining of nausea and vomiting for the last 3 days. Patient states she has not been able to keep anything down for the last 2 days. She has had extreme fatigue and just staying in bed. Denies cough. Some mild shortness of breath. She was not able to take her medications yesterday because of her fatigue in her vomiting. She has had some crampy abdominal pain. She does not normally wear oxygen at home. ROS: 10 point Review of Systems is negative except as noted in the HPI. PMH: COPD, hypothyroidism Social History: Past smoking, no alcohol, no recreational drug use Family History: non-contributory Physical Exam: Gen: Awake, Alert, uncomfortable appearing, oxygen saturations in the mid 80s with a good waveform, feels warm to touch HEENT: Nose: no rhinorrhea Eyes: PERRLA, EOMI Mouth: Very dry mucosa Neck: Supple, no JVD Chest: nontender, decreased breath sounds at the left base, no wheeze Heart: S1, S2 normal, no murmur Abd: Soft, non-tender, no guarding Back: no CVA tenderness, no midline tenderness Ext: no edema, non-tender Skin: no rash Neuro: CN II-XII intact, Sensation grossly intact, Strength 5/5 in bilateral upper and lower extremities - Personal History Tetanus Vaccine Date: 2005 - Medical/Surgical History Hx Asthma: Yes Hx Chronic Respiratory Disease: Yes Hx Diabetes: No Hx Cardiac Disease: No Hx Renal Disease: No Hx Cirrhosis: No Hx Alcoholism: No Hx HIV/AIDS: No Hx Splenectomy or Spleen Trauma: No Other PMH: htn, hypothyroid, copd - Social History Smoking Status: Former smoker Constitutional: Initial Vital Signs O2 Sat (%) 84 L 08/06/17 11:05 O2 Delivery Mode Nasal Cannula O2 (L/minute) 4 Allergies/Adverse Reactions: azithromycin [Azithromycin] Allergy (Intermediate, Verified 06/03/17 14:34) "GETS WORSE NOT BETTER" WITH THIS MED doxycycline Allergy (Verified 08/06/17 12:22) PAIN MEDS Allergy (Intermediate, Uncoded 10/08/16 13:48) Vomiting PILLS Allergy (Uncoded 10/08/16 13:48) Other-Enter Comments Home Medications: Medication Instructions Recorded Aspirin EC [Aspirin EC 81 mg (*)] 81 mg PO HS 06/03/17 Atorvastatin Calcium [Lipitor 10 10 mg PO HS 06/03/17 mg (*)] Cetirizine [ZyrTEC 10 mg (*)] 10 mg PO DAILY 06/03/17 Levothyroxine [Synthroid 88 mcg 88 mcg PO DAILY06 06/03/17 (*)] Omeprazole [Prilosec 20 mg] 20 mg PO DAILY 06/03/17 Tears/Dextran 70/Hypromellose 1 drop EACHEYE PRN PRN 06/03/17 [Natural Balance Tears (*)] Zolpidem Tartrate 10 mg PO HS 06/03/17 Ipratropium/Albuterol [Combivent 1 inh IH QID #1 mdi 06/05/17 Respimat Inhal [place](*)] guaiFENesin/DEXTROMETHORPHAN 10 ml PO Q4HRS PRN ml 06/05/17 [Robitussin Dm Oral Liquid (*)] predniSONE 40 mg PO DAILY #6 tab 06/05/17 Medical Decision Making - Diagnostics Imaging Results: Imaging Impressions Chest X-Ray 08/06/17 11:14 Impression: New dense left lower lobe consolidation suggesting pneumonia, with probable associated atelectasis/effusion. Imaging: I viewed and interpreted images myself ED Course/Re-evaluation: Chest x-ray positive for significant left lower lobe infiltrate. Will give ceftriaxone. Patient is allergic to azithromycin. I have ordered doxycycline as well. Blood cultures have been drawn. Will plan for admission, hospitalist has been paged. Discussed with Parul Wade NP, patient be admitted to [facility] under Dr. Matute - Data Points Laboratory Results: Laboratory Results 08/06/17 11:15 08/06/17 08/06/17 08/06/17 11:30 11:25 11:15 WBC Pending RBC Pending Hgb Pending Hct Pending MCV Pending MCH Pending MCHC Pending RDW Pending Plt Count Pending MPV Pending Neut % (Auto) Pending Lymph % (Auto) Pending Fisher % (Auto) Pending Eos % (Auto) Pending Baso % (Auto) Pending Nucleat RBC Rel Count Pending Absolute Neuts (auto) Pending Absolute Lymphs (auto) Pending Absolute Monos (auto) Pending Absolute Eos (auto) Pending Absolute Basos (auto) Pending Absolute Nucleated RBC Pending Immature Gran % Pending Immature Gran # Pending Sodium 138 mEq/L mEq/L (135-145) Potassium 3.5 mEq/L mEq/L (3.5-5.2) Chloride 97 mEq/L mEq/L (97-110) Carbon Dioxide 21 mEq/l L mEq/l (22-31) Anion Gap 20 mEq/L H mEq/L (8-16) BUN 29 mg/dL H mg/dL (7-23) Creatinine 1.0 mg/dL mg/dL (0.6-1.0) Estimated GFR 54 Glucose 81 mg/dL mg/dL (70-100) Calcium 8.7 mg/dL mg/dL (8.5-10.4) Total Bilirubin 2.6 mg/dL H mg/dL (0.1-1.4) Conjugated Bilirubin 0.7 mg/dL H mg/dL (0.0-0.5) Unconjugated Bilirubin 1.9 mg/dL H mg/dL (0.0-1.1) AST 31 IU/L IU/L (14-46) ALT 32 IU/L IU/L (9-52) Alkaline Phosphatase 85 IU/L IU/L (38-126) Troponin I 0.015 ng/mL ng/mL (0.000-0.034) Total Protein 6.2 g/dL L g/dL (6.3-8.2) Albumin 3.3 g/dL L g/dL (3.5-5.0) Influenza A,B Rapid NEGATIVE FOR FLU (NEGATIVE) Medications Given: Discontinued Medications Albuterol/Ipratropium (Duoneb) 3 ml IH EDNOW ONE Stop: 08/06/17 12:00 Last Admin: 08/06/17 12:00 Dose: 3 ml Doxycycline Hyclate (Doxycycline Hyclate) 100 mg PO EDNOW ONE PRN Reason: Protocol Stop: 08/06/17 12:17 Last Admin: 08/06/17 12:20 Dose: Not Given Ceftriaxone Sodium 1 gm/ (Sterile Water) 10 mls @ 150 mls/hr IV EDNOW ONE PRN Reason: Protocol Stop: 08/06/17 12:19 Last Admin: 08/06/17 12:19 Dose: 10 mls Departure - Departure Disposition: [facility] Inpatient Acute Clinical Impression: Pneumonia Condition: Fair Referrals: Rey Arguelles MD [Primary Care Provider] - As per Instructions
[2017-08-06] MEDS ORDERED: IPRATROPIUM/ALBUTEROL 3 ML DEYVIAL ONE (11:56)
[2017-08-06] MEDS ORDERED: IPRATROPIUM/ALBUTEROL 3 ML DEYVIAL IH ONE (11:59)
[2017-08-06] MEDS ORDERED: cefTRIAXone 1 GM in STERILE WATER INJ 10 ML IV ONE ×2 (12:04→12:16)
[2017-08-06] MEDS ORDERED: cefTRIAXone 1 GM VIAL ONE (12:11)
[2017-08-06] MEDS ORDERED: DOXYCYCLINE HYCLATE 100 MG CAP/TAB PO ONE (12:16)
[2017-08-06 12:36] LABS: PLATELET COUNT 281 10^3/uL (150-400)
[2017-08-06] MEDS ORDERED: ONDANSETRON 4 MG/2 ML VIAL ONE (13:05)
[2017-08-06] MEDS ORDERED: ONDANSETRON 4 MG/2 ML VIAL IVP ONE (13:11)
[2017-08-06] MEDS ORDERED: NS 1,500 ML IV ONE (15:58)
[2017-08-06] MEDS ORDERED: ALBUTEROL 3 ML DEYVIAL IH PRN (15:59)
[2017-08-06] MEDS ORDERED: ACETAMINOPHEN 325 MG TAB PO PRN (15:59)
[2017-08-06] MEDS ORDERED: ONDANSETRON DISINTEGRATING 4 MG TAB PO PRN (15:59)
[2017-08-06] MEDS ORDERED: ONDANSETRON 4 MG/2 ML VIAL IVP PRN (15:59)
[2017-08-06] MEDS ORDERED: oxyCODONE IR 5 MG TAB PO PRN (15:59)
[2017-08-06] MEDS ORDERED: TEARS/DEXTRAN 70/HYPROMELLOSE 15 ML OPHT.BTL EACHEYE PRN (16:06)
[2017-08-06] MEDS: IPRATROPIUM/ALBUTEROL 3 ML DEYVIAL IH SCH ×2 (16:23→19:45)
--- NOTE | 2017-08-06 16:53 | GHP ---
[f rep st] HISTORY AND PHYSICAL DATE OF ADMISSION: 08/06/2017 CHIEF COMPLAINT: Weakness, nausea, vomiting. HISTORY OF PRESENT ILLNESS: This is a 72-year-old female with a history of chronic obstructive pulmonary disease and an esophageal stricture, who presents with extreme weakness. She has had nausea and vomiting for the last 2 days. Diarrhea for the last week. She has had some coughing today though this has not been a predominant complaint. She has not had any fevers to her knowledge. She had a recent workup including CT angio and CT of her abdomen early this month, they were negative for a PE. CT abdomen ordered by her PCP showed some constipation. Since this was done, she has had diarrhea. PAST MEDICAL/SURGICAL HISTORY: 1. Chronic obstructive pulmonary disease on clinical trial by Dr. Perez. 2. Hypertension. 3. Hyperlipidemia. 4. Thyroid cancer, now hypothyroid. 5. Esophageal stricture status post dilations with EGD. 6. Partial thyroidectomy in 2000. MEDICATIONS: Please see medication reconciliation. ALLERGIES: Azithromycin and doxycycline. FAMILY HISTORY: Father had an RI in his 50s. SOCIAL HISTORY: She is a former smoker. She occasionally drinks alcohol. She is usually very physically active, is looking forward to running the [employer], was 9th in her age group this last summer. REVIEW OF SYSTEMS: A 10-point review of systems is conducted and is negative except per HPI. PHYSICAL EXAM: VITAL SIGNS: Blood pressure 106/42, heart rate 97, respiration rate 24, saturating 92% on 10 L oxy mask. Temperature 37. GENERAL: The patient is a pleasant female who appears somewhat in some respiratory distress. HEENT: Shows her to be normocephalic, atraumatic. CARDIOVASCULAR: Regular rate and rhythm. Borderline tachycardic. No murmurs, rubs, or gallops. PULMONARY: She is in moderate respiratory distress. She has bronchial breath sounds at the left base. ABDOMEN: Soft, mildly tender to palpation. No peritoneal signs. SKIN: Shows no rash. : Shows no Rosales. NEUROLOGIC: Shows her to be alert and oriented x3. She is moving all extremities. PSYCHIATRIC: Shows normal mood and affect. LABS: White count is 31, this is 67% neutrophils with 23% bands. Lactate is 2.5, bicarb 21, creatinine 1.0, total bilirubin is 2.6, unconjugated is 1.9. She is negative for flu. DATA: 1. I reviewed her chart. 2. I personally viewed and interpreted her chest x-ray. This shows a dense left lower lobe consolidation. 3. I reviewed her old CT scan of her abdomen, summarized per HPI. IMPRESSION AND PLAN: This is a 72-year-old female, who presents with sepsis and pneumonia. 1. Sepsis: Likely due to pneumonia. We will provide her with a bolus. We will repeat her lactate after the bolus. She is currently not requiring pressors. She meets criteria with her respiratory rate, leukocytosis, and pneumonia as a source. 2. Pneumonia: Given her oxygen requirement, I will be aggressive with her antibiotics. We will treat her with Zosyn for possible aspiration given the history and pseudomonal coverage given recent hospitalization, and Levaquin for atypical coverage (she is allergic to azithromycin and doxycycline). We will attempt to get a sputum culture, send respiratory viral PCR, check procalcitonin , check urine strep and Legionella. We will also provide supportive therapies including Mucinex, steroids given her underlying chronic obstructive pulmonary disease, nebulizer treatments. 3. Acute hypoxic respiratory failure: On high flow O2 currently. Due to pneumonia. Follow closely. Low threshold to move to step-down unit or ICU. Monitor on continuous pulse oximetry. 4. Gastroenteritis: We will provide supportive care and check a gastrointestinal pathogen panel. 5. Chronic obstructive pulmonary disease: She is not on oxygen or steroids at baseline. She does use inhalers. 6. Hypothyroid: Continue her Synthroid. 7. Suspected Gilbert's. 8. Acute kidney injury: Prerenal. Recheck tomorrow with IV hydration. 9. Code status is full. 10. Venous thromboembolism risk is moderate. I will give her low-dose Lovenox. /[id number]/MODL MTDD
[2017-08-06] MEDS: methylPREDNISolone SOD SUCC 40 MG/ML VIAL IVP SCH ×2 (17:32→23:10)
[2017-08-06] MEDS: PIPERACILLIN/TAZO 3.375 GM/DEX 50 ML IV SCH ×2 (17:35→23:09)
--- NOTE | 2017-08-06 17:38 | PDMN ---
Medical Necessity Medical necessity: est los>2mn for sepsis likely r/t PNA, with high O2 needs at 10L/oxymask, acute hypoxic resp failure, MIGDALIA, and gastroenteritis; low threshold for tx to ICU or SCU; admit for aggressive IV abx rx, IVF,IV steroids , continuous pulse ox; comorbid COPD, HTN, HLD, esophageal stricture, hx thyroid CA; per order and H&P 08/06/17
[2017-08-06] MEDS: NS 1,000 ML IV SCH ×2 (17:54→23:10)
[2017-08-06] MEDS ORDERED: PIPERACILLIN/TAZO 4.5 GM/DEX 100 ML IV SCH (18:00)
[2017-08-06] MEDS: ASPIRIN EC 81 MG TAB PO SCH (20:42)
[2017-08-06] MEDS: ATORVASTATIN CALCIUM 10 MG TAB PO SCH (20:42)
[2017-08-06] MEDS: guaiFENesin 600 MG TAB.ER PO SCH (20:42)
[2017-08-06] MEDS ORDERED: NON-FORMULARY NEW DRUG (Zolpidem Tartrate [Zolpidem Tartrate] 10 MG) PO SCH (21:00)
[2017-08-06] MEDS: ZOLPIDEM TARTRATE 5 MG TAB PO SCH (23:10)
[2017-08-07] MEDS: IPRATROPIUM/ALBUTEROL 3 ML DEYVIAL IH SCH ×4 (04:47→20:44)
[2017-08-07 05:15] LABS: PLATELET COUNT 205 10^3/uL (150-400)
[2017-08-07] MEDS: LEVOTHYROXINE 88 MCG TAB PO SCH (05:25)
[2017-08-07] MEDS: methylPREDNISolone SOD SUCC 40 MG/ML VIAL IVP SCH ×3 (05:25→17:18)
[2017-08-07] MEDS: PIPERACILLIN/TAZO 3.375 GM/DEX 50 ML IV SCH ×3 (05:25→17:18)
--- NOTE | 2017-08-07 07:57 | HOSPPROG ---
Hospitalist Progress Note Assessment/Plan: DIAGNOSES: * Acute Sepsis vital signs not quite yet normalized but not acidotic * Acute Hypoxemic Resp Failure * Aspiration Pneumonia * Gastroenteritis * Acute PreRenal Azotemia * COPD Exacerbation * Metabolic Acidosis I have concern for possible empyema or parapneumonic pleural effusion by my reading of CXR done yesterday PLANS: -continue current antibiotics -follow cxs closely -I have ordered repeat CXR -continue supportive and respiratory care -encourage diet intake and activity as able -PT OT SUBJECTIVE: Feels slightly less short of breath but still dyspneic on significant oxygen, extremely weak, still with very poor appetite but her nausea vomiting have resolved No chest pain No abdominal pain OBJECTIVE Vitals reviewed: Blood pressures remain low for her off of her blood pressure medicines, mild tachycardia, respiratory rate better, no fever today Child Advocate, my review: Exam: alert oriented looks quite exhausted skin warm dry color ok resps not labored lungs very diminished BSs with some rhonchi heart regular abd soft nondistended nontender, bowel sounds present limbs warm, no edema iv site ok Objective: Vital Signs Temp Pulse Resp BP Pulse Ox 36.7 C 96 16 94/50 L 98 08/07/17 04:00 08/07/17 04:00 08/07/17 04:00 08/07/17 04:00 08/07/17 04:00 Microbiology 08/06/17 16:35 Respiratory Panel (PCR) - Final Nasal, Sinus - Swab No Organism Detected Laboratory Results 08/07/17 04:51 08/06/17 08/07/17 08/08/17 06:59 06:59 06:59 Intake Total 2000 Output Total 350 Balance 1650 - Time Spent With Patient Time Spent with Patient: greater than 35 minutes Time Spent with Patient: Greater than 35 minutes spent on this patients care, greater than 50% of time spent counseling, educating, and coordinating care regarding the above mentioned plan. ICD10 Worksheet Patient Problems: Problems Problem Status Onset Pneumonia Acute Acute bronchitis Acute Chronic obstructive pulmonary disease with acute exacerbation Acute chronic disease mgmt/transitional care Acute chronic disease mgmt/transitional care Acute
[2017-08-07] MEDS ORDERED: LANSOPRAZOLE SUSP 30MG/10ML UDSYR (Adult) TUBE SCH (09:00)
[2017-08-07] MEDS ORDERED: PANTOPRAZOLE SODIUM 40 MG TAB PO SCH (09:00)
[2017-08-07] MEDS ORDERED: NON-FORMULARY NEW DRUG (Omeprazole [Prilosec 20 Mg] 20 MG) PO SCH (09:00)
[2017-08-07] MEDS: LANSOPRAZOLE SUSP 30MG/10ML UDSYR (Adult) PO SCH (09:49)
[2017-08-07] MEDS: ENOXAPARIN 40 MG/0.4 ML SYR SC SCH (10:15)
[2017-08-07] MEDS: guaiFENesin 600 MG TAB.ER PO SCH ×2 (10:15→21:56)
[2017-08-07] MEDS: CETIRIZINE 10 MG TAB PO SCH (10:15)
--- NOTE | 2017-08-07 12:27 | ASMTCASEMG ---
Living Arrangements What is your living Answers: With Spouse arrangement? Who do you live with? Type Of Residence What kind of residence do Answers: House you live in? Discharge Plan Comments Coordination Status Comments Notes: Pt is a 72 y/o female admitted for weakness, nausea, and vomiting. Pt will most likely d/c independent when medically stable. No therapies ordered at this time. CM available for changes. Plan: Independent Date Signed: 08/07/2017 12:26 PM Electronically Signed By:URIEL Ervin
[2017-08-07] MEDS: ATORVASTATIN CALCIUM 10 MG TAB PO SCH (21:56)
[2017-08-07] MEDS: ASPIRIN 81 MG CHEWABLE TAB PO SCH (21:56)
[2017-08-07] MEDS: ZOLPIDEM TARTRATE 5 MG TAB PO SCH (21:59)
[2017-08-07] MEDS: ASPIRIN EC 81 MG TAB PO SCH (22:08)
[2017-08-08] MEDS: PIPERACILLIN/TAZO 3.375 GM/DEX 50 ML IV SCH ×3 (00:09→11:35)
[2017-08-08] MEDS: methylPREDNISolone SOD SUCC 40 MG/ML VIAL IVP SCH ×5 (00:09→23:37)
[2017-08-08] MEDS: LEVOTHYROXINE 88 MCG TAB PO SCH (05:29)
[2017-08-08] MEDS: IPRATROPIUM/ALBUTEROL 3 ML DEYVIAL IH SCH ×4 (05:37→20:04)
[2017-08-08 05:59] LABS: PLATELET COUNT 228 10^3/uL (150-400)
[2017-08-08] MEDS: ENOXAPARIN 40 MG/0.4 ML SYR SC SCH (07:47)
[2017-08-08] MEDS: LANSOPRAZOLE SUSP 30MG/10ML UDSYR (Adult) PO SCH (08:05)
[2017-08-08] MEDS: CETIRIZINE 10 MG TAB PO SCH (08:06)
[2017-08-08] MEDS ORDERED: guaiFENesin/CODEINE PHOS 10 ML UDCUP PO PRN (10:01)
--- NOTE | 2017-08-08 10:05 | HOSPPROG ---
Hospitalist Progress Note Assessment/Plan: DIAGNOSES: * Acute Sepsis vital signs not quite yet normalized but not acidotic * Acute Hypoxemic Resp Failure * Aspiration Pneumonia * hypokalemic, new diagnosis today * oral thrush, new diagnosis today * Gastroenteritis symptoms slowly resolving * Acute PreRenal Azotemia * COPD Exacerbation * Metabolic Acidosis I have concern for possible empyema or parapneumonic pleural effusion by my reading of admission CXR She is still too weak and dependent to trying get her out of the hospital at this time PLANS: -continue current antibiotics -follow cxs closely -I have ordered repeat CXR still pending today and will review that with her when I have the images -replacement of potassium -nystatin for thrush -continue supportive and respiratory care -encourage diet intake and activity as able -PT OT SUBJECTIVE: Complains of increasing diffuse oral pain today with signs of dryness, has been present for several days but not mentioned previously Shortness of breath unchanged Still much cough A bit stronger and less achy Eating a little bit better today, still with poor appetite OBJECTIVE Vitals reviewed: Blood pressures and pulse better Exam: alert oriented still looks quite exhausted and weak Diffuse thrush on tongue and oropharynx skin warm dry color ok resps not labored lungs very diminished BSs much loud rales at left lung base heart regular abd soft nondistended nontender, bowel sounds present limbs warm, no edema iv site ok White blood cell count still 27,000 Potassium is low today Objective: Vital Signs Temp Pulse Resp BP Pulse Ox 37.1 C 89 16 117/58 L 95 08/08/17 07:58 08/08/17 07:58 08/08/17 05:37 08/08/17 07:58 08/08/17 07:58 Laboratory Results 08/08/17 05:40 08/08/17 05:40 08/07/17 08/08/17 08/09/17 06:59 06:59 06:59 Intake Total 1999 2199 Output Total 350 2600 Balance 1650 -400 ICD10 Worksheet Patient Problems: Problems Problem Status Onset Pneumonia Acute Acute bronchitis Acute Chronic obstructive pulmonary disease with acute exacerbation Acute chronic disease mgmt/transitional care Acute chronic disease mgmt/transitional care Acute
[2017-08-08] MEDS ORDERED: GUAIFENESIN 20 MG/ML PO PRN (11:05)
[2017-08-08] MEDS ORDERED: GUAIFENESIN/DM 10 ML UDCUP PO PRN (11:09)
[2017-08-08] MEDS: guaiFENesin 600 MG TAB.ER PO SCH (11:21)
[2017-08-08] MEDS: NYSTATIN SUSP 500000 UNIT/5 ML UDCUP PO SCH ×3 (11:35→21:46)
[2017-08-08] MEDS ORDERED: POTASSIUM CL 20 MEQ TAB PO ONE (16:18)
[2017-08-08] MEDS ORDERED: POTASSIUM CL 20 MEQ PKT PO ONE (16:45)
[2017-08-08] MEDS: NS 1,000 ML IV SCH (18:07)
[2017-08-08] MEDS: PIPERACILLIN NA/TAZO 4.5 GM in D5W 100 ML IV SCH ×2 (18:26→23:37)
[2017-08-08] MEDS: ATORVASTATIN CALCIUM 10 MG TAB PO SCH (21:46)
[2017-08-08] MEDS: ZOLPIDEM TARTRATE 5 MG TAB PO SCH (21:46)
[2017-08-08] MEDS: ASPIRIN 81 MG CHEWABLE TAB PO SCH (21:46)
[2017-08-08] MEDS: MELATONIN 3 MG TAB PO SCH (21:46)
[2017-08-08] MEDS ORDERED: LACTULOSE 20 GM/30 ML UDCUP PO PRN (22:18)
[2017-08-08] MEDS: SENNOSIDES/DOCUSATE SODIUM TAB PO SCH (22:27)
[2017-08-09] MEDS: MBX SOLN 30 ML BOTTLE PO PRN ×2 (01:09→05:41)
[2017-08-09 05:18] LABS: PLATELET COUNT 220 10^3/uL (150-400)
[2017-08-09] MEDS: PIPERACILLIN NA/TAZO 4.5 GM in D5W 100 ML IV SCH ×3 (05:39→17:53)
[2017-08-09] MEDS: LEVOTHYROXINE 88 MCG TAB PO SCH (05:39)
[2017-08-09] MEDS: NYSTATIN SUSP 500000 UNIT/5 ML UDCUP PO SCH ×3 (05:39→17:53)
[2017-08-09] MEDS: methylPREDNISolone SOD SUCC 40 MG/ML VIAL IVP SCH ×3 (05:39→17:52)
[2017-08-09] MEDS: IPRATROPIUM/ALBUTEROL 3 ML DEYVIAL IH SCH ×4 (05:48→21:01)
[2017-08-09] MEDS: LANSOPRAZOLE SUSP 30MG/10ML UDSYR (Adult) PO SCH (09:02)
[2017-08-09] MEDS: SENNOSIDES/DOCUSATE SODIUM TAB PO SCH (09:03)
[2017-08-09] MEDS: ENOXAPARIN 40 MG/0.4 ML SYR SC SCH (09:03)
[2017-08-09] MEDS: CETIRIZINE 10 MG TAB PO SCH (09:03)
[2017-08-09] MEDS: BISACODYL 10 MG SUPP PR PRN ×2 (11:28→12:08)
[2017-08-09] MEDS: POLYETHYLENE GLYCOL 3350 17 GM PKT PO PRN (14:11)
--- NOTE | 2017-08-09 18:46 | HOSPPROG ---
Hospitalist Progress Note Assessment/Plan: DIAGNOSES: * Acute Sepsis * Acute Hypoxemic Resp Failure * Acute pneumonia with recent hospitalization so HCAP * hypokalemic * oral thrush, * Gastroenteritis symptoms slowly resolving * Acute PreRenal Azotemia * COPD Exacerbation * Metabolic Acidosis * Constipation, new diagnosis today, no BM for a week She is still too weak and dependent to trying get her out of the hospital at this time PLANS: -will stop zosyn now as no pseudomonas in cxs and continue levaquin IV -follow cxs closely -replacement of potassium -nystatin for thrush -continue supportive and respiratory care -encourage diet intake and activity as able -PT OT -add laxatives and enemas -repeat CBC and chem SUBJECTIVE: Complains of increasing diffuse oral pain today with signs of dryness, has been present for several days but not mentioned previously Shortness of breath unchanged Still much cough A bit stronger and less achy Eating a little bit better today, still with poor appetite OBJECTIVE Vitals reviewed: Blood pressures and pulse better Exam: alert oriented still looks quite exhausted and weak Diffuse thrush on tongue and oropharynx skin warm dry color ok resps not labored lungs very diminished BSs much loud rales at left lung base heart regular abd soft nondistended nontender, bowel sounds present limbs warm, no edema iv site ok repeat CXR on my review of images shows decreased infiltrate, decrease in size of effusion cultures remain neg to date Objective: Vital Signs Temp Pulse Resp BP Pulse Ox 36.5 C 84 16 139/71 H 95 08/09/17 16:00 08/09/17 16:45 08/09/17 16:45 08/09/17 16:00 08/09/17 16:45 Microbiology 08/08/17 22:23 - Final Sputum, Expectorated Laboratory Results 08/09/17 05:06 08/09/17 05:06 08/08/17 08/09/17 08/10/17 06:59 06:59 06:59 Intake Total 2200 1653 1386 Output Total 2600 1200 Balance -509 437 0924 - Time Spent With Patient Time Spent with Patient: greater than 35 minutes Time Spent with Patient: Greater than 35 minutes spent on this patients care, greater than 50% of time spent counseling, educating, and coordinating care regarding the above mentioned plan. ICD10 Worksheet Patient Problems: Problems Problem Status Onset Pneumonia Acute Acute bronchitis Acute Chronic obstructive pulmonary disease with acute exacerbation Acute chronic disease mgmt/transitional care Acute chronic disease mgmt/transitional care Acute
[2017-08-10] MEDS: ASPIRIN 81 MG CHEWABLE TAB PO SCH ×2 (00:42→20:22)
[2017-08-10] MEDS: ATORVASTATIN CALCIUM 10 MG TAB PO SCH ×2 (00:42→20:21)
[2017-08-10] MEDS: MELATONIN 3 MG TAB PO SCH ×2 (00:43→20:32)
[2017-08-10] MEDS: SENNOSIDES/DOCUSATE SODIUM TAB PO SCH ×3 (00:43→20:31)
[2017-08-10] MEDS: NYSTATIN SUSP 500000 UNIT/5 ML UDCUP PO SCH ×5 (00:43→20:23)
[2017-08-10] MEDS: ZOLPIDEM TARTRATE 5 MG TAB PO SCH ×2 (00:59→21:06)
[2017-08-10] MEDS: methylPREDNISolone SOD SUCC 40 MG/ML VIAL IVP SCH ×4 (00:59→20:23)
[2017-08-10] MEDS: IPRATROPIUM/ALBUTEROL 3 ML DEYVIAL IH SCH ×4 (05:13→21:37)
[2017-08-10] MEDS ORDERED: LOSARTAN POTASSIUM 25 MG TAB ONE (05:26)
[2017-08-10] MEDS: LEVOTHYROXINE 88 MCG TAB PO SCH (05:29)
[2017-08-10] MEDS ORDERED: LOSARTAN POTASSIUM 25 MG TAB PO SCH (09:00)
[2017-08-10] MEDS: CETIRIZINE 10 MG TAB PO SCH (09:13)
[2017-08-10] MEDS: ENOXAPARIN 40 MG/0.4 ML SYR SC SCH (09:13)
[2017-08-10] MEDS: LANSOPRAZOLE SUSP 30MG/10ML UDSYR (Adult) PO SCH (09:13)
--- NOTE | 2017-08-10 09:43 | ASMTCMCOM ---
CM Note CM Note Notes: Pt cleared by PT/OT, anticipate will dc home w/support of when medically stable. CM available for any changes. DC Plan: Independent Date Signed: 08/10/2017 09:42 AM Electronically Signed By:Dilia Griffin RN
--- NOTE | 2017-08-10 12:25 | HOSPPROG ---
Hospitalist Progress Note Assessment/Plan: Sepsis 2/2 PNA - (sepsis criteria on admission- tachypnea, wbc's, PNA). Improving. AHRF 2/2 PNA / COPD - O2 8 LPM --> 2 LPM. +pneumococcal Ag, improving on Levaquin. -cont atbx, nebs -wean steroids -d/c ivf's Constipation - cont bowel regimen Hypothyroidism - cont synthroid Gilbert's Thrush - cont nystatin DVT PPLX - Lovenox Full code Dispo - cont inpt Subjective: Pt feels better. Breathing improved, still a bit SOB with activity. Coughing less. No fevers. No CP. Taking po well. Objective: Vital Signs Temp Pulse Resp BP Pulse Ox 36.4 C 76 18 139/78 H 94 08/10/17 11:09 08/10/17 11:16 08/10/17 11:16 08/10/17 11:09 08/10/17 11:16 Microbiology 08/08/17 22:23 - Final Sputum, Expectorated Laboratory Results 08/09/17 05:06 08/09/17 05:06 08/09/17 08/10/17 08/11/17 05:59 05:59 05:59 Intake Total 1653 1386 Output Total 1200 600 Balance 453 786 - Physical Exam Constitutional: no apparent distress Eyes: PERRL Ears, Nose, Mouth, Throat: moist mucous membranes Cardiovascular: regular rate and rhythym Respiratory: no respiratory distress, inspiratory crackles Gastrointestinal: normoactive bowel sounds, soft, non-tender abdomen Skin: warm Musculoskeletal: full muscle strength Neurologic: AAOx3 Psychiatric: interacting appropriately ICD10 Worksheet Patient Problems: Problems Problem Status Onset Pneumonia Acute Acute bronchitis Acute Chronic obstructive pulmonary disease with acute exacerbation Acute chronic disease mgmt/transitional care Acute chronic disease mgmt/transitional care Acute
[2017-08-10] MEDS ORDERED: POTASSIUM CL 20 MEQ TAB PO ONE (16:53)
[2017-08-10] MEDS: LOSARTAN POTASSIUM 25 MG TAB PO SCH (20:22)
[2017-08-10] MEDS: MAGNESIUM HYDROXIDE 30 ML UDCUP PO PRN (21:04)
[2017-08-11] MEDS: LEVOTHYROXINE 88 MCG TAB PO SCH (05:06)
[2017-08-11] MEDS: NYSTATIN SUSP 500000 UNIT/5 ML UDCUP PO SCH ×4 (05:08→21:24)
[2017-08-11] MEDS: IPRATROPIUM/ALBUTEROL 3 ML DEYVIAL IH SCH ×4 (05:26→20:53)
[2017-08-11 05:57] LABS: PLATELET COUNT 276 10^3/uL (150-400)
[2017-08-11] MEDS: ENOXAPARIN 40 MG/0.4 ML SYR SC SCH (08:11)
[2017-08-11] MEDS: LANSOPRAZOLE SUSP 30MG/10ML UDSYR (Adult) PO SCH (08:11)
[2017-08-11] MEDS: LOSARTAN POTASSIUM 25 MG TAB PO SCH ×2 (08:13→21:25)
[2017-08-11] MEDS: SENNOSIDES/DOCUSATE SODIUM TAB PO SCH ×2 (08:15→21:34)
[2017-08-11] MEDS: CETIRIZINE 10 MG TAB PO SCH (08:15)
[2017-08-11] MEDS: POLYETHYLENE GLYCOL 3350 17 GM PKT PO PRN (08:21)
--- NOTE | 2017-08-11 09:58 | HOSPPROG ---
Hospitalist Progress Note Assessment/Plan: Sepsis 2/2 PNA - (sepsis criteria on admission- tachypnea, wbc's, PNA). Improving. AHRF 2/2 PNA / COPD - O2 8 LPM --> 1 LPM. +pneumococcal Ag, improving on Levaquin. -cont atbx, nebs -d/c steroids Volume overload - up 7 kg with abdominal distention and orthopnea -check bnp, KUB, repeat CXR -likely needs Lasix Hypothyroidism - cont synthroid Diarrhea - check C diff Gilbert's Thrush - cont nystatin DVT PPLX - Lovenox Full code Dispo - cont inpt Subjective: Pt c/o increased SOB, orthopnea and abdominal distention. No CP. No fevers. She is ambulating. Feels worse today. Objective: Vital Signs Temp Pulse Resp BP Pulse Ox 36.4 C 79 16 153/79 H 95 08/11/17 07:54 08/11/17 07:54 08/11/17 07:54 08/11/17 07:54 08/11/17 07:54 Microbiology 08/08/17 22:23 - Final Sputum, Expectorated Laboratory Results 08/11/17 05:28 08/11/17 05:28 08/10/17 08/11/17 08/12/17 05:59 05:59 05:59 Intake Total 1386 250 Output Total 600 Balance 786 250 - Physical Exam Constitutional: no apparent distress Eyes: PERRL Ears, Nose, Mouth, Throat: moist mucous membranes Cardiovascular: regular rate and rhythym Respiratory: no respiratory distress, inspiratory crackles Gastrointestinal: normoactive bowel sounds, soft, non-tender abdomen Skin: warm Musculoskeletal: full muscle strength Neurologic: AAOx3 Psychiatric: interacting appropriately ICD10 Worksheet Patient Problems: Problems Problem Status Onset Pneumonia Acute Acute bronchitis Acute Chronic obstructive pulmonary disease with acute exacerbation Acute chronic disease mgmt/transitional care Acute chronic disease mgmt/transitional care Acute
[2017-08-11] MEDS: methylPREDNISolone SOD SUCC 40 MG/ML VIAL IVP SCH ×2 (10:32→21:27)
[2017-08-11] MEDS ORDERED: FUROSEMIDE 20 MG/2 ML VIAL IVP ONE (13:55)
[2017-08-11] MEDS: POTASSIUM CL 10 MEQ TAB PO ONE ×2 (14:15→14:42)
[2017-08-11] MEDS ORDERED: POTASSIUM CL 20 MEQ/15 ML UDCUP PO ONE (14:45)
[2017-08-11] MEDS: ATORVASTATIN CALCIUM 10 MG TAB PO SCH (21:24)
[2017-08-11] MEDS: ZOLPIDEM TARTRATE 5 MG TAB PO SCH (21:25)
[2017-08-11] MEDS: ASPIRIN 81 MG CHEWABLE TAB PO SCH (21:27)
[2017-08-11] MEDS: MELATONIN 3 MG TAB PO SCH (21:29)
[2017-08-12 05:35] LABS: PLATELET COUNT 302 10^3/uL (150-400)
[2017-08-12] MEDS: IPRATROPIUM/ALBUTEROL 3 ML DEYVIAL IH SCH ×4 (05:45→21:26)
[2017-08-12] MEDS: LEVOTHYROXINE 88 MCG TAB PO SCH (05:56)
[2017-08-12] MEDS: NYSTATIN SUSP 500000 UNIT/5 ML UDCUP PO SCH ×4 (05:56→20:39)
[2017-08-12] MEDS: LANSOPRAZOLE SUSP 30MG/10ML UDSYR (Adult) PO SCH (08:25)
[2017-08-12] MEDS: LOSARTAN POTASSIUM 25 MG TAB PO SCH ×2 (08:26→20:39)
[2017-08-12] MEDS: ENOXAPARIN 40 MG/0.4 ML SYR SC SCH (08:26)
[2017-08-12] MEDS: CETIRIZINE 10 MG TAB PO SCH (08:26)
[2017-08-12] MEDS: methylPREDNISolone SOD SUCC 40 MG/ML VIAL IVP SCH ×2 (08:27→20:39)
[2017-08-12] MEDS: SENNOSIDES/DOCUSATE SODIUM TAB PO SCH ×2 (08:27→20:41)
--- NOTE | 2017-08-12 13:08 | ECHO ---
[email or web address] [address] [address] Main: [phone] Fax: Transthoracic Echocardiogram Name: PILLO QUINTANILLA MR#: [id number] Study Date: 08/12/2017 Study Time: 11:08 AM Date of : 1945 Age: 72 year(s) Height: 162.6 cm (64 in.) Weight: 53.98 kg (119 lb.) BSA: 1.57 m2 Gender: Female Examination: Echo Indication: elevated BNP, HF symptoms Image Quality: Adequate Contrast: Requested by: Gwendolyn Flores BP: 139 mmHg/67 mmHg Heart Rate: Rhythm: Normal sinus rhythm Indication: elevated BNP, HF symptoms Procedure Staff Cone Classifier Tender: Madiha Garcia [facility] Reading Physician: Kristen Tovar Requesting Provider: Conclusions: Normal size left ventricle. No LV hypertrophy. Normal global systolic LV function. EF is 60 %. No regional wall motion abnormality. Grade 1 diastolic dysfunction (abnormal relaxation). Normal size right ventricle. Normal RV function. Mild mitral valve regurgitation is present. Mild tricuspid regurgitation is present. The pulmonary artery pressure is normal. There is no previous echocardiogram for comparison. Measurements: Chambers Valvular Assessment AV/MV Valvular Assessment TV/PV Normal Normal Normal Name Value Range Name Value Range Name Value Range Ao Dottie (MM): 2.8 cm (2.2 cm-3.7 AV Vmax: 1.37 m/s (1 m/s-1.7 TR Vmax: 2.64 mm/s ( - ) cm) m/s) TR PGmax: 28 mmHg ( - ) IVSd (2D): 1.1 cm (0.6 cm-1.1 AV maxP mmHg ( - ) syst. PAP: 33 mmHg ( - ) cm) LVOT Vmax: 1.07 m/s (0.7 m/s-1.1 PV Vmax: 1.00 m/s (0.6 m/s-0.9 LVDd (2D): 4.3 cm (3.9 cm-5.3 m/s) m/s) cm) MV E Vmax: 0.92 m/s ( - ) PV PGmax: 4 mmHg ( - ) LVDs (2D): 2.7 cm (2.1 cm-4 MV A Vmax: 1.23 m/s ( - ) cm) MV E/A: 0.75 ( - ) LVPWd (2D): 1.0 cm ( - ) LVEF (BP): 60 % (>=55 %) RVDd(2D): 2.7 cm (1.9 cm-3.8 cmmm) Patient: PILLO QUINTANILLA Study Date: 08/12/2017 Page 1 of 2 11:08 AM Continued Measurements: Chambers Valvular Assessment AV/MV Valvular Assessment TV/PV Name Value Name Value Name Value LADs Lon.0 cm MV DecTime: 232 m/s CVP (est.): 5 mmHg LA Area: 12.9 cm2 MV E' Septal: 0.07 m/s TAPSE: 1.9 cm MV E/E' Septal: 13.30 RA Area: 11.2 cm2 MV E/E' Lateral: 12.30 Additional Vessels Name Value Ao Ascendin.6 cm Findings: Left Ventricle: Normal size left ventricle. No LV hypertrophy. Normal global systolic LV function. EF is 60 %. No regional wall motion abnormality. Grade 1 diastolic dysfunction (abnormal relaxation). Right Ventricle: Normal size right ventricle. Normal RV function. Left Atrium: The left atrium is normal in size. Right Atrium: The right atrium is normal in size. Mitral Valve: The mitral valve is normal in appearance and function. There is mild thickening of the mitral valve leaflets. Mild mitral annular calcification. Mild mitral valve regurgitation is present. No mitral stenosis is present. Aortic Valve: The aortic valve is normal in appearance and function. There is no aortic valve regurgitation. No aortic valve stenosis is present. Tricuspid Valve: The tricuspid valve is normal in appearance and function. Mild tricuspid regurgitation is present. The pulmonary artery pressure is normal. Pulmonic Valve: The pulmonic valve is normal in appearance and function. There is no pulmonic regurgitation seen. Aorta: The aorta is normal. Normal size aortic root measuring 2.8 cm. Normal size ascending aorta measuring 2.6 cm. IVC: The IVC is normal sized. Pericardium: No pericardial effusion. (No Signature Object) Patient: PILLO QUINTANILLA Study Date: 08/12/2017 Page 2 of 2 11:08 AM [id number]
[2017-08-12] MEDS ORDERED: FUROSEMIDE 20 MG/2 ML VIAL IVP ONE (14:40)
--- NOTE | 2017-08-12 14:44 | HOSPPROG ---
Hospitalist Progress Note Assessment/Plan: Sepsis 2/2 PNA - (sepsis criteria on admission- tachypnea, wbc's, PNA). Improving. AHRF 2/2 PNA / COPD / acute diastolic HF - O2 8 LPM --> 1 LPM. +pneumococcal Ag , improving on Levaquin. -cont atbx, nebs -wean steroids -diurese Volume overload - Echo reviewed, grade 1 diastolic HF. BNP >3K. Wt up 7 kg since admission with abdominal distention and orthopnea. Diuresed neg 1.5 kg overnight. -repeat IV Lasix -follow I&O's, daily wts Hypothyroidism - cont synthroid Constipation - bowel protocol. Gilbert's Thrush - cont nystatin DVT PPLX - Lovenox Full code Dispo - cont inpt Objective: Vital Signs Temp Pulse Resp BP Pulse Ox 36.5 C 81 15 162/68 H 96 08/12/17 11:31 08/12/17 11:36 08/12/17 11:36 08/12/17 11:31 08/12/17 11:36 Microbiology 08/08/17 22:23 - Final Sputum, Expectorated Sputum Culture - Final Lactobacillus Species Laboratory Results 08/12/17 04:51 08/12/17 04:51 08/11/17 08/12/17 08/13/17 05:59 05:59 05:59 Intake Total 250 400 Balance 250 400 - Physical Exam Constitutional: no apparent distress Eyes: PERRL Ears, Nose, Mouth, Throat: moist mucous membranes Cardiovascular: regular rate and rhythym Respiratory: no respiratory distress, other (still some crackles, improved air exchange) Gastrointestinal: normoactive bowel sounds, soft, non-tender abdomen, distension Skin: warm Musculoskeletal: full muscle strength Neurologic: AAOx3 Psychiatric: interacting appropriately ICD10 Worksheet Patient Problems: Problems Problem Status Onset Pneumonia Acute Acute bronchitis Acute Chronic obstructive pulmonary disease with acute exacerbation Acute chronic disease mgmt/transitional care Acute chronic disease mgmt/transitional care Acute
[2017-08-12] MEDS: MAGNESIUM HYDROXIDE 30 ML UDCUP PO PRN (15:29)
[2017-08-12] MEDS: ATORVASTATIN CALCIUM 10 MG TAB PO SCH (20:39)
[2017-08-12] MEDS: ASPIRIN 81 MG CHEWABLE TAB PO SCH (20:39)
[2017-08-12] MEDS: MELATONIN 3 MG TAB PO SCH (20:41)
[2017-08-12] MEDS: ZOLPIDEM TARTRATE 5 MG TAB PO SCH (21:10)
[2017-08-13] MEDS: IPRATROPIUM/ALBUTEROL 3 ML DEYVIAL IH SCH ×4 (04:55→21:17)
[2017-08-13] MEDS: LEVOTHYROXINE 88 MCG TAB PO SCH (05:12)
[2017-08-13] MEDS: NYSTATIN SUSP 500000 UNIT/5 ML UDCUP PO SCH ×5 (05:12→21:41)
[2017-08-13 05:22] LABS: PLATELET COUNT 367 10^3/uL (150-400)
[2017-08-13] MEDS: SENNOSIDES/DOCUSATE SODIUM TAB PO SCH ×2 (08:45→21:48)
[2017-08-13] MEDS: MAGNESIUM HYDROXIDE 30 ML UDCUP PO PRN (08:46)
[2017-08-13] MEDS: ENOXAPARIN 40 MG/0.4 ML SYR SC SCH (08:47)
[2017-08-13] MEDS: LANSOPRAZOLE SUSP 30MG/10ML UDSYR (Adult) PO SCH (08:47)
[2017-08-13] MEDS: LOSARTAN POTASSIUM 25 MG TAB PO SCH ×2 (08:47→21:42)
[2017-08-13] MEDS: CETIRIZINE 10 MG TAB PO SCH (08:47)
[2017-08-13] MEDS: methylPREDNISolone SOD SUCC 40 MG/ML VIAL IVP SCH (08:48)
[2017-08-13] MEDS ORDERED: FUROSEMIDE 40 MG/4 ML VIAL IVP ONE (10:45)
--- NOTE | 2017-08-13 10:52 | HOSPPROG ---
Hospitalist Progress Note Assessment/Plan: Sepsis 2/2 PNA - (sepsis criteria on admission- tachypnea, wbc's, PNA). Improving. AHRF 2/2 PNA / COPD / acute diastolic HF - O2 8 LPM --> 1 LPM. +pneumococcal Ag , improving on Levaquin. -she has completed 8 days of tx, will d/c atbx -d/c steroids -cont to diurese Leukocytosis - I suspect this is due to her recent high dose steroids, which have been weaned off. Expect improvement. Volume overload - Echo reviewed, grade 1 diastolic HF. BNP >3K. Wt up 7 kg since admission with abdominal distention and orthopnea. Diuresing slowly. -repeat IV Lasix -follow I&O's, daily wts Oral lesion - send HSV PCR, treat if positive Thrush - no thrush on tongue, just ulcers now as above, still small area of thrush on left buccal mucosa -cont nystatin to buccal mucosa Hypothyroidism - cont synthroid Constipation - bowel protocol. Demetris's DVT PPLX - Lovenox Full code Dispo - cont inpt Subjective: Pt feels better every day. Still with wet cough and abdominal distention. +BM today. No fevers. No CP or SOB. She feels better with diuresis. Objective: Vital Signs Temp Pulse Resp BP Pulse Ox 36.6 C 78 18 155/81 H 97 08/13/17 08:00 08/13/17 08:00 08/13/17 08:00 08/13/17 08:47 08/13/17 08:00 Laboratory Results 08/13/17 05:09 08/13/17 05:09 08/12/17 08/13/17 08/14/17 05:59 05:59 05:59 Intake Total 400 1540 Output Total 2120 600 Balance 400 -580 -600 - Physical Exam Constitutional: no apparent distress Eyes: PERRL Ears, Nose, Mouth, Throat: moist mucous membranes Cardiovascular: regular rate and rhythym Respiratory: no respiratory distress, clear to auscultation Gastrointestinal: normoactive bowel sounds, soft, non-tender abdomen, distension Skin: warm Musculoskeletal: full muscle strength Neurologic: AAOx3 Psychiatric: interacting appropriately ICD10 Worksheet Patient Problems: Problems Problem Status Onset Pneumonia Acute Acute bronchitis Acute Chronic obstructive pulmonary disease with acute exacerbation Acute chronic disease [facility]/transitional care Acute chronic disease mgmt/transitional care Acute
--- NOTE | 2017-08-13 12:37 | ASMTCMCOM ---
CM Note CM Note Notes: ERIN spoke w/ Emigdio RN regarding d/c POC. The plan remains the same and pt will d/c without any needs when medically stable. Therapies continue to recommend home independent. CM available for changes. Plan: Independent Date Signed: 08/13/2017 12:37 PM Electronically Signed By:URIEL Ervin
[2017-08-13] MEDS: ATORVASTATIN CALCIUM 10 MG TAB PO SCH (21:41)
[2017-08-13] MEDS: ZOLPIDEM TARTRATE 5 MG TAB PO SCH (21:41)
[2017-08-13] MEDS: ASPIRIN 81 MG CHEWABLE TAB PO SCH (21:48)
[2017-08-13] MEDS: MELATONIN 3 MG TAB PO SCH (21:48)
[2017-08-14] MEDS: LEVOTHYROXINE 88 MCG TAB PO SCH (04:56)
[2017-08-14] MEDS: NYSTATIN SUSP 500000 UNIT/5 ML UDCUP PO SCH ×2 (04:56→14:36)
[2017-08-14] MEDS: IPRATROPIUM/ALBUTEROL 3 ML DEYVIAL IH SCH ×4 (05:49→20:51)
[2017-08-14 05:51] LABS: PLATELET COUNT 430 10^3/uL (150-400)
[2017-08-14] MEDS: LOSARTAN POTASSIUM 25 MG TAB PO SCH ×2 (08:15→20:19)
[2017-08-14] MEDS: ENOXAPARIN 40 MG/0.4 ML SYR SC SCH (08:16)
[2017-08-14] MEDS: LANSOPRAZOLE SUSP 30MG/10ML UDSYR (Adult) PO SCH (08:16)
[2017-08-14] MEDS: CETIRIZINE 10 MG TAB PO SCH (08:16)
[2017-08-14] MEDS: MAGNESIUM HYDROXIDE 30 ML UDCUP PO PRN (08:22)
[2017-08-14] MEDS: MBX SOLN 30 ML BOTTLE PO PRN (09:58)
[2017-08-14] MEDS: SENNOSIDES/DOCUSATE SODIUM TAB PO SCH ×2 (09:59→20:31)
--- NOTE | 2017-08-14 12:08 | HOSPPROG ---
Hospitalist Progress Note Assessment/Plan: Sepsis 2/2 PNA - (sepsis criteria on admission- tachypnea, wbc's, PNA). Improving. AHRF 2/2 PNA / COPD / acute diastolic HF - O2 8 LPM --> 1-3 LPM. +pneumococcal Ag. improvement noted on recent cxr. -she has completed 8 days of atbx (zosyn, then levaquin) -cont nebs, anti-tussives -tapered off steroids Leukocytosis - I suspect this is due to her recent high dose steroids, which have been weaned off. Expect improvement. Volume overload - Echo reviewed, grade 1 diastolic HF. BNP >3K. Wt up 7 kg since admission with abdominal distention and orthopnea. Diuresed 4 kg over past several days. -dc lasix, noting rising CO2 and BUN Mucositis - multiple tongue and buccal mucosa ulcerations, ?HSV- steroids may have provoked this -HSV PCR pending, treat if positive -magic mouthwash, popsicles Thrush - no thrush on tongue, just ulcers now as above -stop nystatin, pt feels this didn't help and now with increased pain Hypothyroidism - cont synthroid Constipation - bowel protocol. Gilbert's DVT PPLX - Lovenox Full code Dispo - cont inpt Subjective: Pt c/o severe oral pain from ulcerations. Difficult to eat. No fevers. Breathing improved, still has wet cough. Objective: Vital Signs Temp Pulse Resp BP Pulse Ox 36.6 C 96 18 146/70 H 90 L 08/14/17 07:58 08/14/17 11:27 08/14/17 11:27 08/14/17 07:58 08/14/17 11:27 Microbiology 08/13/17 10:45 Gastrointestinal Tract Panel (PCR) - Final Stool No Organism Detected Laboratory Results 08/14/17 05:11 08/14/17 05:11 08/13/17 08/14/17 08/15/17 05:59 05:59 05:59 Intake Total 1540 650 Output Total 2120 1800 Balance -580 -1150 - Physical Exam Constitutional: no apparent distress Eyes: PERRL Ears, Nose, Mouth, Throat: other (multiple ulcerations on tongue, plaque on left buccal mucosa now ulcerating) Cardiovascular: regular rate and rhythym, no murmur, rub, or gallop Respiratory: no respiratory distress, clear to auscultation Gastrointestinal: normoactive bowel sounds, soft, non-tender abdomen Skin: warm Musculoskeletal: full muscle strength Neurologic: AAOx3 Psychiatric: interacting appropriately ICD10 Worksheet Patient Problems: Problems Problem Status Onset Pneumonia Acute Acute bronchitis Acute Chronic obstructive pulmonary disease with acute exacerbation Acute chronic disease mgmt/transitional care Acute chronic disease mgmt/transitional care Acute
--- NOTE | 2017-08-14 17:39 | GCON ---
[f rep st] CONSULTATION PULMONARY/CRITICAL CARE CONSULTATION. DATE OF CONSULTATION: 08/14/2017 REFERRING PHYSICIAN: Gwendolyn Flores MD REASON FOR REFERRAL: Evaluation and management of COPD and pneumonia. HISTORY: The patient is a 72-year-old woman with a history of COPD, known to me from my outpatient c are. She has had COPD with fairly frequent exacerbations as an outpatient, and is currently on a karthikeyan dy medication, which is a combined ICS/LAMA/LAVA metered-dose inhaler. She was admitted to the [facility] 8 days ago with increased weakness, some nausea and vomiting as well as mild cough. She had pres ented to the emergency department about a week earlier and had an unremarkable CAT scan. At the time of her presentation on the ; however, she had a new left lower lobe consolidation and pleural ef fusion. She was admitted to the hospital and treated with empiric IV antibiotics. Strep pneumo anti gen was positive, which fits clinically with her presentation. Blood cultures were negative. She cl inically feels quite a bit better, but not quite back to baseline. She still has some cough, althoug h that is significantly improved. She has had some oral ulcers which have been bothering her during this hospitalization. PAST MEDICAL HISTORY: 1. COPD. 2. Hypertension. 3. Hyperlipidemia. 4. Status post thyroid cancer. 5. Esophageal stricture status post dilatations. MEDICATIONS AT THE TIME OF ADMISSION: Zolpidem, Zyrtec, Prilosec, Synthroid, Lipitor, albuterol as w ell as her study inhaler. ALLERGIES: Azithromycin, doxycycline. SOCIAL HISTORY: The patient is a former smoker. She drinks alcohol occasionally. FAMILY HISTORY: Positive for early coronary artery disease. REVIEW OF SYSTEMS: A 10-point review of systems adds nothing to the history of present illness physi srinivasa. PHYSICAL EXAMINATION: GENERAL: The patient is awake, alert, in no acute distress, with just an occa sional loose sounding cough. VITAL SIGNS: Blood pressure is 127/57 with a heart rate of 84. She is she is afebrile. Oxygen saturations are 91% on 3 L. HEENT: Normocephalic and atraumatic. On her mouth she has some aphthous appearing ulcers on her tongue. NECK: No adenopathy. Trachea is midlin e. CHEST: She has some rales in her left base. CARDIAC: Regular rate and rhythm without murmur. ABDOMEN: Soft, nontender. Bowel sounds are present. EXTREMITIES: No clubbing, cyanosis, or edema. NEURO: The patient is awake, alert. She has no gross motor or sensory deficits. LABORATORY DATA: White blood count is 18.5, up slightly compared to her value over the last 3 days. Hemoglobin is 12.5. A chemistry group is remarkable for a carbon dioxide level of 38, up from 31. Her BUN is 32. Her BNP is 3930. Blood gas showed a lactate of 2.5 at admission, 2.0 on repeat. Uri nary strep pneumo antigen is positive. Her influenza and respiratory panel are negative. A chest x-ray from 08/11 shows improved left basilar consolidation and pleural effusion. Images revi ewed by me. ASSESSMENT: 1. Chronic obstructive pulmonary disease exacerbation. This is improved with therapy including bron chodilators, DuoNebs and albuterol and steroids (now discontinued) and antibiotics (also discontinued after completing 8 days). 2. Pneumonia, probably pneumococcal. As above, the patient has completed a course of antibiotics an d is improving symptomatically as well as with reduced oxygen needs. 3. Volume overload. The patient's I's and O's have been positive. She has just started diuresing. Her BUN and HCO3 are elevated. She has not had an elevated HCO3, so I do not think this is a sign o f respiratory induced CO2 retention. It is more likely due to diuresis. 4. Oral ulcers. These could be related to HSV from steroids. There are likely to be related to her study inhaler, although that inhaler could potentially include an inhaled steroid which could somewh at increase the risk of an infection such as HSV. The lesions do not did not look like thrush. RECOMMENDATIONS: Agree with increasing activity and continuing bronchodilators. Consider therapy fo r oral lesions if HSV testing is positive. I will be happy to follow the patient as an outpatient up on discharge. /[id number]/MODL
[2017-08-14] MEDS: ASPIRIN 81 MG CHEWABLE TAB PO SCH (20:18)
[2017-08-14] MEDS: ATORVASTATIN CALCIUM 10 MG TAB PO SCH (20:18)
[2017-08-14] MEDS: ZOLPIDEM TARTRATE 5 MG TAB PO SCH (20:19)
[2017-08-14] MEDS: MELATONIN 3 MG TAB PO SCH (20:31)
[2017-08-15] MEDS: IPRATROPIUM/ALBUTEROL 3 ML DEYVIAL IH SCH ×4 (05:05→20:23)
[2017-08-15] MEDS: LEVOTHYROXINE 88 MCG TAB PO SCH (05:18)
[2017-08-15 06:29] LABS: PLATELET COUNT 431 10^3/uL (150-400)
[2017-08-15] MEDS: LANSOPRAZOLE SUSP 30MG/10ML UDSYR (Adult) PO SCH (08:18)
[2017-08-15] MEDS: LOSARTAN POTASSIUM 25 MG TAB PO SCH ×2 (08:19→20:31)
[2017-08-15] MEDS: CETIRIZINE 10 MG TAB PO SCH (08:19)
[2017-08-15] MEDS: ENOXAPARIN 40 MG/0.4 ML SYR SC SCH ×2 (08:20→15:47)
[2017-08-15] MEDS: SENNOSIDES/DOCUSATE SODIUM TAB PO SCH ×2 (08:23→20:31)
--- NOTE | 2017-08-15 10:21 | ASMTCMCOM ---
CM Note CM Note Notes: Plan remains the same, pt will dc home w/support of when medically stable. CM available for any changes. DC Plan: Independent Date Signed: 08/15/2017 10:20 AM Electronically Signed By:Dilia Griffin RN
[2017-08-15] MEDS ORDERED: LIDOCAINE 2% VISCOUS 15 ML UDCUP PO PRN (14:20)
[2017-08-15] MEDS ORDERED: valACYclovir 500 MG TAB PO SCH (14:30)
[2017-08-15] MEDS: valACYclovir 500 MG TAB PO SCH ×2 (15:47→20:09)
--- NOTE | 2017-08-15 17:26 | PDINTPN ---
Quilt Stuffer Progress Note Assessment/Plan: Assessment: S. Pneumo Pneumonia: Improved s/p 8 day course of antibiotics COPD exacerbation: Due to bacterial pneumonia. S/P Rx with PO steroids. Currently on bronchodilators. Minimal residual O2 needs, still with cough and congestion. Herpes stomatitis: Started Valtrex today. Plan: Continue guaifenesin, Duonebs. Increase activity. Hhopefully home in 1-2 days. 08/15/17 17:22 08/15/17 17:26 08/15/17 17:27 Objective: Vital Signs Temp Pulse Resp BP Pulse Ox 36.8 C 88 15 119/64 92 08/15/17 15:44 08/15/17 15:56 08/15/17 15:56 08/15/17 15:44 08/15/17 15:56 Laboratory Results 08/15/17 05:04 08/15/17 05:04 08/14/17 08/15/17 08/16/17 05:59 05:59 05:59 Intake Total 650 500 Output Total 1800 800 Balance -1150 -300 ICD10 Worksheet Patient Problems: Problems Problem Status Onset Pneumonia Acute Acute bronchitis Acute Chronic obstructive pulmonary disease with acute exacerbation Acute chronic disease mgmt/transitional care Acute chronic disease mgmt/transitional care Acute
--- NOTE | 2017-08-15 18:20 | HOSPPROG ---
Hospitalist Progress Note Assessment/Plan: Assessment: 72 yo F p/w sepsis in setting of pneumonia c/b acute COPD exacerbation and respiratory failure, herpes stomatitis Plan: # Sepsis. POA, evidenced by qSOFA 2, autonomic dysregulation and end-organ failure (resp failure, metabolic acidosis), meeting ICDS-3 criteria, resolved # Suspected streptococcal PNA. POA, s/p Abx 8 days (zosyn -> levoflox), uStrep positive # AHRF 2/2 PNA / COPD / acute diastolic HF, evidenced by 8 LPM, objective tachypnea, shortness of breath - weaned to 3LPM, will likely require home o2 # Acute COPD exacerbation. Cont current Rx, appreciate Dr. Perez's consultation # Acute diastolic CHF exacerbation. Echo grade 1 diastolic HF, BNP >3K, Wt up 7 kg since admission - lasix if bicarb downtrends # HSV Stomatitis. Painful mucosal lesions, HSV positive - D#07/22 valacyclovir - PRN lidocaine # Hypothyroidism. Chronic, cont synthroig # Metabolic acidosis. Acute, 2/2 lactic acid from sepsis, resolved # Constipation - bowel protocol. DVT PPLX - Lovenox Full code Dispo -ADD 08/16, pending improvement in above Subjective: painful oral lesions Objective: Vital Signs Temp Pulse Resp BP Pulse Ox 36.8 C 88 15 119/64 92 08/15/17 15:44 08/15/17 15:56 08/15/17 15:56 08/15/17 15:44 08/15/17 15:56 Laboratory Results 08/15/17 05:04 08/15/17 05:04 08/14/17 08/15/17 08/16/17 05:59 05:59 05:59 Intake Total 650 500 Output Total 1800 800 Balance -1150 -300 - Pending Discharge Pending Discharge Within 24 Hours: Yes Pending Discharge Date: 08/16/17 Pending Discharge Time: 11:00 - Physical Exam Constitutional: no apparent distress, chronically ill appearing, uncomfortable, No not in pain (mild mouth) Ears, Nose, Mouth, Throat: moist mucous membranes, hearing normal, other ( scattered clusters of shallow ulcerations, pale w/o surrounding erythema) Cardiovascular: regular rate and rhythym, no murmur, rub, or gallop Respiratory: expiratory wheeze, inspiratory crackles, No reduced air movement, No bronchial breath sounds, No respiratory distress Gastrointestinal: normoactive bowel sounds, soft, non-tender abdomen, no palpable masses Neurologic: AAOx3, sensation intact bilaterally, No weakness Psychiatric: interacting appropriately, not anxious, not encephalopathic, thought process linear ICD10 Worksheet Patient Problems: Problems Problem Status Onset Pneumonia Acute Acute bronchitis Acute Chronic obstructive pulmonary disease with acute exacerbation Acute chronic disease mgmt/transitional care Acute chronic disease mgmt/transitional care Acute
[2017-08-15] MEDS: ATORVASTATIN CALCIUM 10 MG TAB PO SCH (20:08)
[2017-08-15] MEDS: ASPIRIN 81 MG CHEWABLE TAB PO SCH (20:08)
[2017-08-15] MEDS: MELATONIN 3 MG TAB PO SCH (20:31)
[2017-08-15] MEDS: ZOLPIDEM TARTRATE 5 MG TAB PO SCH (20:45)
[2017-08-16 05:45] LABS: PLATELET COUNT 400 10^3/uL (150-400)
[2017-08-16] MEDS: IPRATROPIUM/ALBUTEROL 3 ML DEYVIAL IH SCH ×4 (05:57→21:13)
[2017-08-16] MEDS: LEVOTHYROXINE 88 MCG TAB PO SCH (06:14)
[2017-08-16] MEDS: CETIRIZINE 10 MG TAB PO SCH (07:58)
[2017-08-16] MEDS: LOSARTAN POTASSIUM 25 MG TAB PO SCH ×2 (07:58→20:21)
[2017-08-16] MEDS: SENNOSIDES/DOCUSATE SODIUM TAB PO SCH ×2 (07:59→20:21)
[2017-08-16] MEDS: valACYclovir 500 MG TAB PO SCH ×2 (08:00→20:21)
[2017-08-16] MEDS: LANSOPRAZOLE SUSP 30MG/10ML UDSYR (Adult) PO SCH (08:04)
[2017-08-16] MEDS: ENOXAPARIN 40 MG/0.4 ML SYR SC SCH (08:06)
--- NOTE | 2017-08-16 16:01 | HOSPPROG ---
Hospitalist Progress Note Assessment/Plan: Assessment: 72 yo F p/w sepsis in setting of pneumonia c/b acute COPD exacerbation and respiratory failure, herpes stomatitis Plan: # Sepsis. POA, evidenced by qSOFA 2, autonomic dysregulation and end-organ failure (resp failure, metabolic acidosis), meeting ICDS-3 criteria, resolved # Suspected streptococcal PNA. POA, s/p Abx 8 days (zosyn -> levoflox), uStrep positive # AHRF 2/2 PNA / COPD / acute diastolic HF, evidenced by 8 LPM, objective tachypnea, shortness of breath - weaned to 3LPM, will likely require home o2 # Acute COPD exacerbation. Cont current Rx, appreciate Dr. Perez's consultation # Acute diastolic CHF exacerbation. Echo grade 1 diastolic HF, BNP >3K, Wt up 7 kg since admission - lasix if bicarb downtrends # HSV Stomatitis. Painful mucosal lesions, HSV positive, mildly improving - D#2/7 valacyclovir - PRN lidocaine encouraged # Hypothyroidism. Chronic, cont synthroig # Metabolic acidosis. Acute, 2/2 lactic acid from sepsis, resolved # Constipation - bowel protocol. DVT PPLX - Lovenox Full code Dispo -ADD 2/2, pending improvement in above Subjective: less pain in mouth Objective: Vital Signs Temp Pulse Resp BP Pulse Ox 36.8 C 79 18 125/59 H 95 08/16/17 15:29 08/16/17 15:29 08/16/17 15:29 08/16/17 15:29 08/16/17 15:29 Laboratory Results 08/16/17 05:16 08/16/17 05:16 08/15/17 08/16/17 08/17/17 05:59 05:59 05:59 Intake Total 500 500 Output Total 800 500 Balance -300 0 - Physical Exam Constitutional: no apparent distress, not in pain, chronically ill appearing, uncomfortable Ears, Nose, Mouth, Throat: other (clustered lesions on hard and soft palate w/o surrounding erythema) Cardiovascular: regular rate and rhythym, no murmur, rub, or gallop, No edema Respiratory: reduced air movement (on exp bilat), No expiratory wheeze, No inspiratory crackles, No bronchial breath sounds, No respiratory distress Gastrointestinal: normoactive bowel sounds, soft, non-tender abdomen, no palpable masses, No distension Neurologic: AAOx3, No weakness, No facial droop Psychiatric: interacting appropriately, not anxious, not encephalopathic, thought process linear ICD10 Worksheet Patient Problems: Problems Problem Status Onset Pneumonia Acute chronic disease mgmt/transitional care Acute chronic disease mgmt/transitional care Acute Chronic obstructive pulmonary disease with acute exacerbation Acute Acute bronchitis Acute
[2017-08-16] MEDS: ASPIRIN 81 MG CHEWABLE TAB PO SCH (20:20)
[2017-08-16] MEDS: ATORVASTATIN CALCIUM 10 MG TAB PO SCH (20:20)
[2017-08-16] MEDS: MELATONIN 3 MG TAB PO SCH (20:21)
[2017-08-16] MEDS: ZOLPIDEM TARTRATE 5 MG TAB PO SCH (21:33)
[2017-08-17 05:25] LABS: PLATELET COUNT 389 10^3/uL (150-400)
[2017-08-17] MEDS: LEVOTHYROXINE 88 MCG TAB PO SCH (05:51)
[2017-08-17] MEDS: IPRATROPIUM/ALBUTEROL 3 ML DEYVIAL IH SCH ×2 (05:53→11:15)
[2017-08-17 07:42] VITALS: BP 129/60; TEMP 97.7
[2017-08-17] MEDS: LANSOPRAZOLE SUSP 30MG/10ML UDSYR (Adult) PO SCH (08:21)
[2017-08-17] MEDS: valACYclovir 500 MG TAB PO SCH (08:21)
[2017-08-17] MEDS: SENNOSIDES/DOCUSATE SODIUM TAB PO SCH (08:21)
[2017-08-17] MEDS: LOSARTAN POTASSIUM 25 MG TAB PO SCH (08:22)
[2017-08-17] MEDS: CETIRIZINE 10 MG TAB PO SCH (08:24)
[2017-08-17] MEDS ORDERED: ENOXAPARIN 40 MG/0.4 ML SYR SC SCH (10:30)
[2017-08-17 11:28] VITALS: PULSE 96; RESP 18
--- NOTE | 2017-08-17 11:41 | PDHOMEO2F ---
Home Oxygen Face to Face Home Orders: I certify that a physician or a nurse practitioner or physician's architectural administrative assistant has had a [id number] encounter with this patient on the date of this order due to the diagnosis listed, which relates to the primary reason the patient requires home oxygen. Alternative treatments have been tried, or considered, and deemed ineffective. It is anticipated that supplemental oxygen will result in improvement with treatment. Home oxygen qualifying diagnosis: COPD Home oxygen secondary diagnosis: Chronic diastolic CHF SpO2 on room air (%): 89 Frequency of home oxygen needed: continuous Home oxygen liters per minute: 1 Home oxygen delivery device: nasal cannula Concentrator: Yes E-tanks for mobility and back up: Yes If ordering portable O2, is the patient mobile in the home?: Yes I certify that, based on these findings, the home oxygen is medically necessary for this patient for the following length of time. Length of time home oxygen needed: 3 months
[2017-08-17 12:03] VITALS: O2SAT 85
--- NOTE | 2017-08-17 12:10 | PDDCSUM ---
Discharge Summary Discharge Summary: DISCHARGE SUMMARY FOLLOW-UP ITEMS: Follow-up respiratory status with Dr. Moises Perez Reassess oral HSV with Dr. Arguelles DATE OF ADMISSION: 08/06/2017 DATE OF DISCHARGE: 08/17/2017 DISCHARGE DIAGNOSES: 1. Sepsis present on admission 2. Suspected streptococcal pneumonia present on admission 3. Acute hypoxic respiratory failure 4. Acute diastolic CHF exacerbation 5. Acute COPD exacerbation 6. Chronic hypothyroidism 7. Acute HSV stomatitis 8. Acute metabolic acidosis 9. Acute constipation 10. Suspected chronic hypertension CONSULTATIONS: Pulmonary critical care PROCEDURES / IMAGING: Echocardiogram demonstrating diastolic dysfunction, normal ejection fraction no significant valvular abnormalities or focal wall motion abnormalities Abdominal x-ray no intra-abdominal abnormalities Chest x-ray left basilar consolidation, effusion, atelectasis CHIEF COMPLAINT: Acute cough and shortness of breath SUBJECTIVE: Patient is feeling well at time discharge, she continues to drink mostly liquids given some ongoing oral discomfort PHYSICAL EXAM ON DISCHARGE: Systolic blood pressure is 130-140, heart rate 80, afebrile overnight, satting well on 1 L nasal cannula, SpO2 89% on room air, inspiratory crackles bilateral bases, faint expiratory wheeze right mid posterior segment, heart rhythm is regular, no lower extremity edema, abdomen is soft nontender nondistended bowel sounds present, patient has ongoing stomatitis but with an element of healing opaque epithelium LABS ON DISCHARGE: Creatinine 0.7, potassium 3.9, white blood count [id number] HOSPITAL COURSE BY PROBLEM: 1. Sepsis. Present on admission, evidenced by Q sofa score of 2, with autonomic dysregulation and end-organ failure notably respiratory failure metabolic acidosis, meeting all ICS-3 criteria. The patient was treated in the intensive care unit once stabilized moved to the med surge unit. 2. Suspected streptococcal pneumonia. Present on admission, urine strep was positive, patient received 8 days of antibiotics total for a left lower lobe infiltrate on chest x-ray. The patient does have some ongoing leukocytosis at discharge, but this is most likely secondary to stress demargination with steroids, and her white blood cell count is down trending. Antibiotic the patient received was initially Zosyn, then subsequent levofloxacin. 3. Acute hypoxic respiratory failure. Evidenced by requiring high-flow oxygen up to 8 liters/minute, with objective tachypnea and shortness of breath, as well as hypoxia, most likely secondary to a combination of pneumonia, COPD exacerbation, diastolic congestive heart failure. While on the med surge unit, the patient's oxygen requirements were weaned to 1 L nasal cannula, and she will continue on this at discharge. Her needs will be reassessed in the outpatient setting by her primary care provider as well as Dr. Travis Perez. 4. Acute COPD exacerbation. Evidenced by expiratory wheezes and bronchial breath sounds, patient has a known history of COPD and is being seen by Dr. Travis Perez. The patient was administered steroids as well as scheduled duo nebs, and she will discharge home off of steroids, on her regular scheduled Combivent. She will follow up with Dr. Travis Perez next Sunday. 5. Acute diastolic CHF exacerbation. Chest x-ray demonstrates some pleural effusions and this was after receiving IV fluids for sepsis. Patient's echo demonstrates grade 1 diastolic dysfunction, her BNP was greater than 3000, and her weight peaked at 7 kg greater than her baseline. The patient received some IV Lasix and her volume status equilibrated. The patient appears to be euvolemic at time of discharge. She does not require ongoing Lasix. 6. Suspected chronic hypertension. The patient was consistently hypertensive during this hospitalization, and losartan was initiated, with good effect. She will be continued on and she will have blood pressure recheck prior primary care provider. 7. HSV stomatitis. Acute, with development of painful mucosal lesions along the hard and soft palate, initially slightly created, very tender resulting in difficulty oral intake of solids and liquids. A swab demonstrated HSV, she was initiated on valacyclovir, and she has received 3 total days during this hospitalization with some symptomatic improvement. The patient did not particularly like the Magic mouthwash or the viscous lidocaine, and so should be discharged home some Plan the value acyclovir, with 7 subsequent days, to complete a total 10 days of treatment. I discussed with the patient value of following up with her primary care provider for this issue and having a script for valacyclovir at home to be used if needed if she experiences any recurrence in the future. 8. Chronic hypothyroidism. Patient is continued on Synthroid. 9. Acute metabolic acidosis. Secondary to lactic acidosis in the setting of sepsis, this resolved with IV fluids. 10. Constipation. Patient experienced some acute constipation she received a bowel regimen, she is moving her bowels at time discharge. DISCHARGE MEDICATIONS: Please see official discharge medication reconciliation sheet in chart , continue on all home medications with the addition of losartan 50 mg the morning , 12.5 mg in the evening, addition of values cycle of ear 1000 mg twice daily x7 subsequent days, as needed guaifenesin/dextromethorphan, as needed melatonin at night. DISCHARGE INSTRUCTIONS: Please follow up with Dr. Travis Perez next Sunday as scheduled, Dr. Rey Arguelles thereafter. TIME SPENT: Greater than 30 minutes were spent on direct patient care, as well as discharge planning and preparation.
--- NOTE | 2017-08-17 17:37 | ASDISCHSUM ---
Discharge Information Plan Status:Home with No Needs Medically Cleared to Leave: Discharge Date:08/17/2017 01:56 PM CM D/C Disposition:Home, Routine, Self-Care ADT D/C Disposition:Home, Routine, Self-Care Projected Discharge Date:08/17/2017 01:56 PM Transportation at D/C: Discharge Delay Reason: Follow-Up Date:08/17/2017 01:56 PM Discharge Slot: Final Diagnosis: Placement Information Patient Contact Information Contact Name:LEAH Relationship: Address:[address] City:[place] Alternate Phone: [facility]/Zip Code:[place] [address] Email: Financial Information Financial Class: Primary Plan Desc:MEDICARE INPATIENT Primary Plan Number:[id number] Secondary Plan Desc:[facility] Secondary Plan Number:[id number] Assessment Information [facility] Initial CM Assessment Living Arrangements What is your living Answers: With Spouse arrangement? Who do you live with? Type Of Residence What kind of residence do Answers: House you live in? Discharge Plan Comments Coordination Status Comments Notes: Pt is a 72 y/o female admitted for weakness, nausea, and vomiting. Pt will most likely d/c independent when medically stable. No therapies ordered at this time. CM available for changes. Plan: Independent Date Signed: 08/07/2017 12:26 PM Electronically Signed By:URIEL Ervin [facility] CM Progress Note CM Note CM Note Notes: Pt cleared by PT/OT, anticipate will dc home w/support of when medically stable. CM available for any changes. DC Plan: Independent Date Signed: 08/10/2017 09:42 AM Electronically Signed By:Dilia Griffin RN [facility] CM Progress Note CM Note CM Note Notes: CM spoke w/ CARLOTA Beal regarding d/c POC. The plan remains the same and pt will d/c without any needs when medically stable. Therapies continue to recommend home independent. CM available for changes. Plan: Independent Date Signed: 08/13/2017 12:37 PM Electronically Signed By:URIEL Ervin [facility] CM Progress Note CM Note CM Note Notes: Plan remains the same, pt will dc home w/support of when medically stable. CM available for any changes. DC Plan: Independent Date Signed: 08/15/2017 10:20 AM Electronically Signed By:Dilia Griffin RN Intervention Information Intervention Type:*IM-Signed Date of Service:08/17/2017 01:56 PM Patient Type:Inpatient Staff Member:Charlotte Jj Hours: Discipline: Severity: Comment:
== END 2017-08-17 13:56 | disposition home or self-care (01) | DRG 871 ==
LOC: CED 10:50 → CEDHOLD 12:39 → F3E 14:12
PROVIDERS: ADMIT Student in an Organized Health Care Education/Training Program; ATTEND Student in an Organized Health Care Education/Training Program
DX: A40.9 Streptococcal sepsis, unspecified (principal); J15.4 Pneumonia due to other streptococci; J96.01 Acute respiratory failure with hypoxia; I12.0 Hypertensive chronic kidney disease with stage 5 chronic kidney disease or end stage renal disease; I50.31 Acute diastolic (congestive) heart failure; J44.1 Chronic obstructive pulmonary disease with (acute) exacerbation; B00.2 Herpesviral gingivostomatitis and pharyngotonsillitis; E87.2 Acidosis; E03.9 Hypothyroidism, unspecified; K59.00 Constipation, unspecified; Z87.891 Personal history of nicotine dependence; Z85.850 Personal history of malignant neoplasm of thyroid
CPT/HCPCS: 71046-PO; 80053-PO; 82248-PO; 83605-PO; 84484-PO; 85025-PO; 87400-PO; 87449-90; 87529-90; 96374; 97116-GP; 97161-GP; 97166-GO; 97530-GP; 97535-GO; G8978-GP-CH; G8978-GP-CI; G8979-GP-CH; G8980-GP-CH; G8987-GO-CJ; G8988-GO-CI; J0696; J1650; J1940; J1956; J2405; J2543; J2920; J7613

== ENCOUNTER 2017-09-02 08:45 | Emergency (ER) | payer OTHER ==
[2017-09-02 08:54] VITALS: TEMP 98.2
[2017-09-02] MEDS ORDERED: ACETAMINOPHEN 325 MG TAB PO ONE (09:16)
[2017-09-02] MEDS ORDERED: ACETAMINOPHEN 325 MG TAB ONE (09:17)
[2017-09-02 10:02] LABS: PLATELET COUNT 229 10^3/uL (150-400)
--- NOTE | 2017-09-02 10:42 | EDPHY ---
H & P Stated Complaint: headache, fatigue for week Time Seen by Provider: 09/02/17 09:04 HPI/ROS: Patient presents by private vehicle with complaints of a frontal headache of moderate intensity 5 to 6/10 achy in nature. She states she rarely gets headaches but this is similar to prior headaches. She attributes it to having poor sleep for the last 4 nights. She cites only sleeping about an hour at a time despite use of her Ambien that she has used regularly for quite some time. She did visit Dr. George, internal medicine physician [facility] covering for Dr. Arguelles who was on vacation this week 2 days prior to this visit but he encouraged her to simply try reading at night when she wakes up. She tried this but is still having ongoing insomnia. In addition she reports fatigue and cough productive of yellow sputum. The yellow sputum production occurred just over the past 24 hr and concerns her as she was hospitalized with pneumonia and sepsis at [facility] admitted August 06 2017 and discharged 08/18/2017 with strep pneumonia as the pathogen. She also has history of COPD. She reports compliance with a in inhaler for her COPD that is apparently a inhaler provided by a study that Dr. Perez in the Pulmonary group or participating in. If any point if she feels significant dyspnea despite use of that study inhaler she is able to use her Combivent instead and simply notify the organisms of the study but she reports that she has not had significant dyspnea despite her onset of cough with yellow sputum production. ROS: No high fevers or chills. She does complain of fatigue. No other constitutional symptoms HEENT: Mild nasal congestion. She developed a mouth lesion inside of her left buccal mucosa over the past 24 hr that feels similar to the HSV stomatitis that she had while admitted to [facility] recently. She has a script for a week of Valtrex antiviral for this ailment that she plans to initiate today. Integumentary: No rash. Pulmonary: No hemoptysis. No dyspnea. No pleuritic pain. She does have mild dyspnea with exertion. Cardiovascular: No heart palpitations or lightheadedness. No chest pain at baseline. GI: She has had some issues with constipation in recent weeks but reports improvement with her laxative and had a bowel movement today. No abdominal pain. No nausea or vomiting. : No complaints Endocrine: No complaints Complete review of symptoms is otherwise negative Source: Patient Exam Limitations: No limitations - Personal History Current Tetanus Diphtheria and Acellular Pertussis (TDAP): No Tetanus Vaccine Date: 2005 - Medical/Surgical History Hx Asthma: Yes Hx Chronic Respiratory Disease: Yes Hx Diabetes: No Hx Cardiac Disease: No Hx Renal Disease: No Hx Cirrhosis: No Hx Alcoholism: No Hx HIV/AIDS: No Hx Splenectomy or Spleen Trauma: No Other PMH: htn, hypothyroid, copd, HSV stomatitis, strep pneumonia community- acquired pneumonia with sepsis July 2017 - Family History Significant Family History: No pertinent family hx - Social History Smoking Status: Former smoker Alcohol Use: None Drug Use: None Additional Social History: She lives with her . - Physical Exam Exam: General Appearance: Pleasant mildly cachectic 32-year-old female Alert, no distress. Eyes: Pupils equal and round no pallor or injection. ENT, Mouth: Mucous membranes moist. She has 1 small lesion to the left buccal mucosa for lower lip with erosion of the superficial layers of the mucosa appears consistent with an HSV lesion. No other intraoral lesions. Posterior pharynx is normal with no erythema. No dysphonia, drooling or stridor. Ears: Clear bilaterally. She has mild frontal tenderness on palpation the partially reproduces her headache. No sinus tenderness to percussion., Neck: Supple with no meningismus. Respiratory: Patient has a soft rales at the left base that nearly clears with deep breaths. Otherwise clear to auscultation bilaterally. Cardiovascular: Regular rate and rhythm. No murmur gallop rub. No JVD. Gastrointestinal: Abdomen is soft and nontender, no masses, bowel sounds normal. Back: No CVA tenderness Neurological: GCS of 15 Skin: Warm and dry, no rashes. Extremities are symmetrical, full range of motion. Psychiatric: Mood and affect are normal DIFFERENTIAL DIAGNOSIS: After history and physical exam differential diagnosis was considered for recurrence of pneumonia, COPD exacerbation, tension headache , doubt HSV encephalitis or meningitis, doubt sinusitis, myocardial ischemic disease Constitutional: Initial Vital Signs Temperature (C) 36.8 C 09/02/17 08:51 Heart Rate 77 09/02/17 08:51 Respiratory Rate 18 09/02/17 08:51 Blood Pressure 144/76 H 09/02/17 08:51 O2 Sat (%) 93 09/02/17 08:51 O2 Delivery Mode Room Air Allergies/Adverse Reactions: azithromycin [Azithromycin] Allergy (Intermediate, Verified 09/02/17 08:49) "GETS WORSE NOT BETTER" WITH THIS MED doxycycline Allergy (Verified 09/02/17 08:49) PAIN MEDS Allergy (Intermediate, Uncoded 09/02/17 08:49) Vomiting Home Medications: Medication Instructions Recorded Aspirin EC [Aspirin EC 81 mg (*)] 81 mg PO HS 06/03/17 Atorvastatin Calcium [Lipitor 10 10 mg PO HS 06/03/17 mg (*)] Cetirizine [ZyrTEC 10 mg (*)] 10 mg PO DAILY 06/03/17 Levothyroxine [Synthroid 88 mcg 88 mcg PO DAILY06 06/03/17 (*)] Tears/Dextran 70/Hypromellose 1 drop EACHEYE PRN PRN 06/03/17 [Natural Balance Tears (*)] Zolpidem Tartrate 10 mg PO HS 06/03/17 Ipratropium/Albuterol [Combivent 1 inh IH QID #1 mdi 06/05/17 Respimat Inhal [place](*)] guaiFENesin/DEXTROMETHORPHAN 10 ml PO Q4HRS PRN ml 06/05/17 [Robitussin Dm Oral Liquid (*)] Lansoprazole [PREVACID 30mg/10ml 30 mg PO DAILY #30 udsyr 08/17/17 susp (Adult) (*)] Losartan Potassium [Cozaar 25 mg 12.5 mg PO HS #30 tab 08/17/17 (*)] Losartan Potassium [Cozaar 25 mg 50 mg PO DAILY #30 tab 08/17/17 (*)] Melatonin [Melatonin 3 MG (*)] 3 mg PO HS #30 tab 08/17/17 guaiFENesin/DEXTROMETHORPHAN 10 ml PO Q6 PRN #400 ml 08/17/17 [Robitussin Dm Oral Liquid (*)] valACYclovir [Valtrex (*)] 1,000 mg PO Q12HRS #30 tab 08/17/17 Cefdinir [Omnicef (*)] 300 mg PO BID #14 cap 09/02/17 Ondansetron Odt [Zofran Odt] 4 - 8 mg PO Q4PRN PRN #4 tab 09/02/17 Zaleplon [Sonata] 10 mg PO HS PRN #20 capsule 09/02/17 Medical Decision Making - Diagnostics EKG Interpretation: 12 lead EKG performed shortly after arrival reveals sinus rhythm with normal rate. Intervals: Normal throughout ST segments: Borderline lateral T-wave abnormality. Otherwise normal Overall assessment sinus rhythm with borderline T abnormalities. Please see trace master for complete read Imaging Results: Two view chest x-ray: Left basilar atelectasis verses residual of recent pneumonia. Findings of COPD. Otherwise normal by my interpretation Imaging: I viewed and interpreted images myself ED Course/Re-evaluation: Labs: CBC with mild leukopenia but no neutropenia and prominence of monocytes. Her anemia is improving compared to her prior CBC. Metabolic panel is normal. IV, monitor Tylenol for headache with improvement Discussion: Patient appears well clinically with would think is baseline vital signs for her with an O2 sat of 93% room air no fever. However with soft rales at the left base and chest x-ray with still some findings in the left lower lung field with productive cough and who was diagnosed with bronchitis she with antibiotics this week, I think she does warrant around of antibiotics for mild COPD exacerbation. She did not feel dyspnea while here and did not have wheezing so held off on nebs. She maintains normal mental status no meningismus and no fever. For these reasons I do not think she has HSV encephalitis or meningitis. I did college counselor her regarding her insomnia and some detail including bedtime habits. Will try a trial of sonata in place of her Ambien. Will cover her with Omnicef antibiotic as she has allergies to macrolides and doxycycline. Answered all of her questions prior to her discharge. She did mention some intermittent nausea and for this will provide Zofran. She has a benign belly exam and not think he has any significant intra- abdominal pathology at this time. Similarly, no evidence of significant myocardial ischemic disease with today's workup. However, she understands need to return emergency department should she develop any significant worsening of her symptoms despite the plan. - Data Points Laboratory Results: Laboratory Results 09/02/17 09:42 09/02/17 09:42 Medications Given: Discontinued Medications Acetaminophen (Tylenol) 650 mg PO EDNOW ONE Stop: 09/02/17 09:17 Last Admin: 09/02/17 09:20 Dose: 650 mg Departure - Departure Disposition: Home, Routine, Self-Care Clinical Impression: Tension headache, Mouth lesion, Productive cough, Insomnia, Leukopenia Condition: Good Instructions: Tension Headache (ED) Additional Instructions: Diagnoses: 1. Tension headache 2. Insomnia 3. Productive cough 4. Mild leukopenia 5. Mouth lesion Plan: Humidifier Omnicef antibiotic Continue your inhaler Tylenol for headaches if [id number] mg per 4-6 hours while awake Stop Ambien and try sonata for sleep. Start your Valtrex and take this for 1 week. Call your primary care physician to arrange follow-up appointment for recheck and redraw your blood count to recheck your white blood cell count. Return for any significant worsening despite treatment plan. Referrals: Rey Arguelles MD [Primary Care Provider] - As per Instructions Prescriptions: Cefdinir [Omnicef (*)] 300 mg PO BID #14 cap Ondansetron Odt [Zofran Odt] 4 - 8 mg PO Q4PRN PRN #4 tab PRN Reason: Vomiting Zaleplon [Sonata] 10 mg PO HS PRN #20 capsule PRN Reason: insomnia
[2017-09-02 10:45] VITALS: BP 129/68; PULSE 71; RESP 16; O2SAT 92
== END 2017-09-02 10:51 | disposition home or self-care (01) ==
LOC: CED 08:45
DX: G44.209 Tension-type headache, unspecified, not intractable (principal); G47.00 Insomnia, unspecified; D72.819 Decreased white blood cell count, unspecified; R05 Cough; K13.79 Other lesions of oral mucosa; I10 Essential (primary) hypertension; J44.9 Chronic obstructive pulmonary disease, unspecified; Z87.891 Personal history of nicotine dependence; Z79.82 Long term (current) use of aspirin
CPT/HCPCS: 71046-PO; 80048-PO; 85025-PO

== ENCOUNTER → 2017-09-25 | Outpatient (CLI) | payer OTHER | LOC: CIMAGING 15:38 | PROVIDERS: ATTEND Internal Medicine | DX: Z09 Encounter for follow-up examination after completed treatment for conditions other than malignant neoplasm (principal); Z87.09 Personal history of other diseases of the respiratory system | CPT/HCPCS: 71046-PO ==

== ENCOUNTER → 2017-11-29 | Outpatient (CLI) | payer OTHER | LOC: CIMAGING 10:57 | PROVIDERS: ATTEND Internal Medicine | DX: M79.641 Pain in right hand (principal); M19.041 Primary osteoarthritis, right hand | CPT/HCPCS: 73130-PO ==

== ENCOUNTER → 2018-04-17 | Outpatient (CLI) | payer OTHER | LOC: CIMAGING 12:10 | PROVIDERS: ATTEND Internal Medicine | DX: J98.09 Other diseases of bronchus, not elsewhere classified (principal) | CPT/HCPCS: 71046-PO ==

== ENCOUNTER → 2018-05-10 | Outpatient (CLI) | payer OTHER | LOC: FIMAGING 08:33 | PROVIDERS: ATTEND Internal Medicine | DX: Z13.820 Encounter for screening for osteoporosis (principal); M85.89 Other specified disorders of bone density and structure, multiple sites; E07.9 Disorder of thyroid, unspecified; Z78.0 Asymptomatic menopausal state ==

== ENCOUNTER 2018-06-15 11:24 | Emergency (ER) | payer OTHER ==
[2018-06-15] MEDS ORDERED: NS 500 ML IV ONE (11:52)
--- NOTE | 2018-06-15 11:52 | EDPHY ---
H & P Stated Complaint: night after eating, llq abd pain, denies n/v/d as well as fever Time Seen by Provider: 06/15/18 11:29 HPI/ROS: CHIEF COMPLAINT: Abdominal pain HISTORY OF PRESENT ILLNESS: 73-year-old female reports that 3 days ago in the evening she developed discomfort in her left lower quadrant, left side, and left flank area. Patient has been assessed sharp stabbing pain. Moderate in intensity. No associated nausea or vomiting. She feels somewhat bloated. No diarrhea although she had several loose stools. She does have a history of constipation but had a formed bowel movement this morning. No history of kidney stones. No hematuria. Patient states she feels bloated and has gained 5 lb. No history of diverticulitis. No fevers or chills. No shortness of breath or cough. REVIEW OF SYSTEMS: A comprehensive 10 system review of systems was reviewed and is otherwise negative aside from elements mentioned in the history of present illness and medical decision making. PAST MEDICAL HISTORY: Hypertension, hypercholesterolemia, right lower extremity lymphedema, hypothyroid. SOCIAL HISTORY: Quite active, exercises regularly including an intense workout on prior to the development of the symptoms. Nonsmoker. Primary care physician Dr. Arguelles. VITAL SIGNS Reviewed by me. GENERAL: Pleasant elderly female. No respiratory distress. HEENT: Atraumatic. Eyes: No icterus, no injection. Mouth: moist mucous membranes. No erythema or lesions. Neck: supple with no adenopathy. LUNGS: Clear to auscultation bilaterally, no wheezes, rhonchi or rales. CARDIAC: Regular rate and rhythm, no rubs, murmurs or gallops. ABDOMEN: Soft, mild tenderness in the right lower quadrant with some distension. Mild tenderness in the right lateral abdominal area. Tenderness in the right CVA. No guarding or rebound. BACK: Left CVA tenderness. EXTREMITIES: No trauma. Trace edema on the right lower extremity at the calf, nonpitting. Range of motion is normal throughout]. NEURO: Alert and oriented, grossly nonfocal. SKIN: Warm and dry, no rash. PSYCHIATRIC: Normal mentation, no agitation. - Personal History Current Tetanus Diphtheria and Acellular Pertussis (TDAP): Unsure Tetanus Vaccine Date: within 10 years - Medical/Surgical History Hx Asthma: Yes Hx Chronic Respiratory Disease: Yes Hx Diabetes: No Hx Cardiac Disease: No Hx Renal Disease: No Hx Cirrhosis: No Hx Alcoholism: No Hx HIV/AIDS: No Hx Splenectomy or Spleen Trauma: No Other PMH: htn, hypothyroidism, copd, HSV stomatitis, strep pneumonia community- acquired pneumonia with sepsis July 2017, hyperlipidemia - Social History Smoking Status: Former smoker Constitutional: Initial Vital Signs Temperature (C) 36.5 C 06/15/18 11:34 Heart Rate 86 06/15/18 11:34 Respiratory Rate 16 06/15/18 11:34 Blood Pressure 141/78 H 06/15/18 11:34 O2 Sat (%) 96 06/15/18 11:34 O2 Delivery Mode Room Air Allergies/Adverse Reactions: azithromycin [Azithromycin] Allergy (Verified 06/15/18 11:31) Pt reports "GETS WORSE NOT BETTER" WITH THIS MED doxycycline Allergy (Verified 06/15/18 11:31) Pt reports rash PAIN MEDS Allergy (Uncoded 06/15/18 11:31) Pt reports Vomiting Home Medications: Medication Instructions Recorded Aspirin 01/28/18 Atorvastatin Calcium 01/28/18 Dulera 100 Mcg/5 Mcg Inhaler 01/28/18 Levothyroxine 01/28/18 Losartan Potassium 01/28/18 Natural Balance Tears (*) 01/28/18 Omeprazole 01/28/18 Spiriva Handihaler 01/28/18 Zolpidem Tartrate 01/28/18 Zyrtec 01/28/18 Dicyclomine [Bentyl 20 MG (*)] 20 mg PO QID PRN #20 tab 06/15/18 Medical Decision Making - Diagnostics Imaging Results: Impression: 1. No evidence of diverticulitis, bowel obstruction or pneumoperitoneum. 2. Bilateral renal cortical scarring without hydronephrosis or nephrolithiasis. 3. Degenerative lumbar spine resulting in severe stenosis at L3-L4. 4. Atherosclerotic aorta without aneurysm. Findings and recommendations discussed with Emergency Department physician, Yolanda Vera MD, at 1315 hour, 06/15/2018. Final report concurs with initial preliminary interpretation. Dictated By: Scotty Pierre ED Course/Re-evaluation: CBC normal. Electrolytes normal. Urine dip negative for blood, nitrates, leukocyte esterase. CT scan of the abdomen pelvis: No diverticulitis, no obstruction, normal- appearing kidneys bilaterally. Small amount of free fluid in the pelvis without a clear etiology. Normal appendix. At this point, patient was given Bentyl for crampy gassy abdominal pain. Urine was sent for urine microscopic. Patient was discharged home with instructions regarding rest, ice, Tylenol or ibuprofen for pain, and call for the results of the urine microscopic. She is comfortable doing this. Differential Diagnosis: After obtaining the patient's history and performing an examination, differential diagnosis considered included but was not limited to gastroenteritis, colitis, diverticulitis, abdominal wall strain, urinary tract infection, pyelonephritis. - Data Points Microbiology Results: MICROBIOLOGY 06/15/18 12:09 Urine,Clean Catch Urine Culture - Preliminary Three [place] Types Medications Given: Discontinued Medications Acetaminophen (Tylenol) 650 mg PO EDNOW ONE Stop: 06/15/18 13:27 Last Admin: 06/15/18 13:27 Dose: Not Given Dicyclomine HCl (Bentyl) 20 mg PO EDNOW ONE Stop: 06/15/18 13:15 Last Admin: 06/15/18 13:40 Dose: 20 mg Sodium Chloride (Ns) 500 mls @ 1,000 mls/hr IV EDNOW ONE PRN Reason: Protocol Stop: 06/15/18 12:21 Last Admin: 06/15/18 12:41 Dose: 500 mls Point of Care Test Results: CBC CBC Collection Date 06/15/18 CBC Collection Time 12:04 WBC 8.1 RBC 4.70 HGB 13.3 HCT 39.6 PLT 389 Neut # 6.0 Neut 73.1 LYMPH # 1.5 LYMPH 19.1 Other WBC # 0.6 Other WBC 7.8 MCV 84.3 Chemistry 06/15/18 12:11 POC Sodium 143 mEq/L mEq/L (135-145) POC Potassium 3.6 mEq/L mEq/L (3.3-5.0) POC Chloride 101.0 mEq/L mEq/L (97-110) POC Total CO2 27 mEq/L mEq/L (22-31) POC BUN 17 mg/dL mg/dL (7-23) POC Creatinine 0.8 mg/dL mg/dL (0.6-1.0) POC Glucose 93 mg/dL mg/dL (70-100) POC Calcium 9.7 mg/dL mg/dL (8.5-10.4) Basic Metabolic Panel BMP Collection Date 06/15/2018 BMP Collection Time 12:04 Urine Dip Collection Date 06/15/18 Collection Time 12:09 Specific [place] (1.002-1.030) 1.015 PH (5.0-7.5) 7.0 Leukocytes (Negative) Negative Nitrites (Negative) Negative Protein (Negative) Negative Glucose (Negative) Negative Ketones (Negative) Negative Urobilnogen (0.2-1.0 EU) 0.2 Bilirubin (Negative) Negative Blood (Negative) Negative Departure - Departure Disposition: Home, Routine, Self-Care Clinical Impression: Abdominal pain, Flank pain Condition: Good Instructions: Dicyclomine (By mouth), Acute Abdominal Pain (ED) Additional Instructions: Please keep your follow-up appointment with Dr. Arguelles for Sunday. Please take Bentyl as needed for any distension and abdominal discomfort. You can also try Tylenol. Your urine has been sent for additional studies at the [facility]. Please call [phone] later today to obtain those results. No definitive cause of your abdominal pain has been identified. Please take Tylenol as needed for [id number] pain. If you develop worsening pain, pain spreading throughout the rest of your stomach, diarrhea, fevers, vomiting, or other concerning symptoms, please return to the emergency department or seek care urgently. Referrals: Rey Arguelles MD [Primary Care Provider] - As per Instructions Prescriptions: Dicyclomine [Bentyl 20 MG (*)] 20 mg PO QID PRN #20 tab PRN Reason: ABD PAIN
[2018-06-15] MEDS ORDERED: IOPAMIDOL (ISOVUE-300) 100 ML BTL ONE (12:43)
[2018-06-15] MEDS ORDERED: DICYCLOMINE 10 MG CAP PO ONE (13:14)
[2018-06-15] MEDS ORDERED: ACETAMINOPHEN 325 MG TAB PO ONE (13:26)
[2018-06-15 13:47] VITALS: BP 169/89
== END 2018-06-15 13:45 | disposition home or self-care (01) ==
LOC: CED 11:24
DX: R10.32 Left lower quadrant pain (principal); I10 Essential (primary) hypertension; E78.5 Hyperlipidemia, unspecified; E03.9 Hypothyroidism, unspecified
CPT/HCPCS: 74177; 96360; 99285; Q9967; 80048-PO

== ENCOUNTER 2018-09-16 18:40 | Inpatient (IN) | payer OTHER ==
[2018-09-16] MEDS ORDERED: ASPIRIN 81 MG CHEWABLE TAB PO ONE (19:02)
[2018-09-16] MEDS ORDERED: IPRATROPIUM/ALBUTEROL 3 ML DEYVIAL IH ONE (19:02)
--- NOTE | 2018-09-16 19:08 | EDPHY ---
H & P Stated Complaint: Upper shoulder and back pain since am Time Seen by Provider: 09/16/18 18:57 HPI/ROS: CHIEF COMPLAINT: Bilateral shoulder and base of the neck pain HISTORY OF PRESENT ILLNESS: Patient is a 73-year-old female who comes to the emergency department stating that she has pain across the top of her back bilateral shoulders and lower neck. She states that it began this morning and felt like sore muscles and has been gradually worsening throughout the day. She states that it seems to hurt worse when she walks. She initially attributed it to shoveling snow yesterday but is concerned about her heart. She has no history of coronary artery disease or intervention. She does have a history of COPD, hypertension, thyroid cancer no hypothyroid as well as esophageal strictures with recurrent dilations. She denies any recent fevers or infections. She denies shortness of breath. She does wear 2 L of oxygen at home at night but does not typically need it during the day. No coughing. No paresthesias numbness or weakness. No bowel or bladder abnormalities. Severity: Moderate Modifying factors: None REVIEW OF SYSTEMS: Constitutional: denies: chills, fever, recent illness, recent injury EENTM: denies: blurred vision, double vision, nose congestion Respiratory: denies: cough, shortness of breath Cardiac: denies: chest pain, irregular heart rate, lightheadedness, palpitations Gastrointestinal/Abdominal: denies: abdominal pain, diarrhea, nausea, vomiting, blood streaked stools Genitourinary: denies: dysuria, frequency, hematuria, pain Musculoskeletal: See HPI Skin: denies: lesions, rash, jaundice, bruising Neurological: denies: headache, numbness, paresthesia, tingling, dizziness, weakness Hematologic/Lymphatic: denies: blood clots, easy bleeding, easy bruising Immunologic/allergic: denies: HIV/AIDS, transplant 10 systems reviewed and negative except as noted EXAM: GENERAL: Well-appearing, well-nourished and in no acute distress. HEAD: Atraumatic, normocephalic. EYES: Pupils equal round and reactive to light, extraocular movements intact, sclera anicteric, conjunctiva are normal. ENT: TMs normal, nares patent, oropharynx clear without exudates. Moist mucous membranes. NECK: No midline tenderness, Normal range of motion, supple without lymphadenopathy or JVD. LUNGS: Breath sounds clear to auscultation bilaterally and equal. No wheezes rales or rhonchi. HEART: Regular rate and rhythm without murmurs, rubs or gallops. ABDOMEN: Soft, nontender, normoactive bowel sounds. No guarding, no rebound. No masses appreciated. BACK: No CVA tenderness, no spinal tenderness, step-offs or deformities EXTREMITIES: Bilateral posterior shoulder pain, no tenderness. No swelling. Normal range of motion. No pain with range of motion, no pitting or edema. No clubbing or cyanosis. NEUROLOGICAL: Cranial nerves II through XII grossly intact. Normal speech, normal gait. 5/5 strength, normal movement in all extremities, normal sensation , normal reflexes PSYCH: Normal mood, normal affect. SKIN: Warm, dry, normal turgor, no visible rashes or lesions. Source: Patient Exam Limitations: No limitations - Personal History Current Tetanus/Diphtheria Vaccine: Unsure Current Tetanus Diphtheria and Acellular Pertussis (TDAP): Unsure Tetanus Vaccine Date: within 10 years - Medical/Surgical History Hx Asthma: Yes Hx Chronic Respiratory Disease: Yes Hx Diabetes: No Hx Cardiac Disease: No Hx Renal Disease: No Hx Cirrhosis: No Hx Alcoholism: No Hx HIV/AIDS: No Hx Splenectomy or Spleen Trauma: No Other PMH: htn, hypothyroidism, COPD, HSV stomatitis, strep pneumonia community- acquired pneumonia with sepsis July 2017, hyperlipidemia, C Section, dilation of oesphagus. - Family History Significant Family History: No pertinent family hx - Social History Smoking Status: Former smoker Alcohol Use: None Constitutional: Initial Vital Signs Temperature (C) 37.0 C 09/16/18 18:54 Heart Rate 91 09/16/18 18:54 Respiratory Rate 20 09/16/18 18:54 Blood Pressure 168/73 H 09/16/18 18:54 O2 Sat (%) 91 L 09/16/18 18:54 O2 Delivery Mode Nasal Cannula O2 (L/minute) 3 Allergies/Adverse Reactions: azithromycin [Azithromycin] Allergy (Verified 09/16/18 18:53) Pt reports "GETS WORSE NOT BETTER" WITH THIS MED doxycycline Allergy (Verified 09/16/18 18:53) Pt reports rash PAIN MEDS Allergy (Uncoded 06/15/18 11:31) Pt reports Vomiting Home Medications: Medication Instructions Recorded Aspirin EC [Aspirin EC 81 mg (*)] 81 mg PO HS 01/28/18 Atorvastatin Calcium [Lipitor 10 10 mg PO HS 01/28/18 mg (*)] Cetirizine [ZyrTEC 10 mg (*)] 10 mg PO HS 01/28/18 Levothyroxine [Synthroid 75 mcg 75 mcg PO DAILY06 01/28/18 (*)] Losartan Potassium [Cozaar 25 mg 25 mg PO BID 01/28/18 (*)] Mometasone/Formoterol [Dulera 100 2 puffs IH BID 01/28/18 Mcg/5 Mcg Inhaler] Omeprazole 20 mg PO DAILY 01/28/18 Tiotropium Inhaler [Spiriva 18 mcg IH DAILY 01/28/18 Handihaler] Zolpidem Tartrate [Ambien] 10 mg PO HS 01/28/18 Hydrochlorothiazide [HCTZ (*)] 12.5 mg PO DAILY 09/16/18 Medical Decision Making - Diagnostics EKG Interpretation: An EKG obtained and was read and documented in trace view. Please see trace view for full reading and report. Sinus rhythm, first-degree block, unchanged from previous Imaging: Discussed imaging studies w/ call center director Radiologist (ATERSEMP@2 ATERSEMP@2 ) ED Course/Re-evaluation: 7:55 p.m. Discussed the case with patient and then with Dr. Myers who will admit. I suspect a viral pneumonitis based on her x-ray an elevated white blood cell count. Will hold off on antibiotics at this point to the rest of her viral panel comes back and blood cultures are taken. We will have this done at [facility] because we would have to send it over there any ways. The patient does admit to having chills earlier today. She did receive an albuterol without significant improvement. We will obtain respiratory PCR and blood cultures and sent with the patient to [facility] rather than by [facility]. Differential Diagnosis: Partial list of the Differential diagnosis considered include but were not limited to; viral syndrome, pneumonitis, acute coronary disease, PE, musculoskeletal pain and although unlikely based on the history and physical exam, I also considered sepsis. - Data Points Laboratory Results: Laboratory Results 09/17/18 05:15 09/17/18 05:15 Microbiology Results: MICROBIOLOGY 09/16/18 19:50 Nasal, Sinus - Swab Respiratory Panel (PCR) - Final No Organisms Detected By Pcr Medications Given: Acetaminophen (Tylenol) 650 mg PO Q4HRS PRN PRN Reason: Pain, Mild/Fever, Can Take PO Stop: 03/15/19 22:15 Last Admin: 09/16/18 22:44 Dose: 650 mg Enoxaparin Sodium (Lovenox) 40 mg SC DAILY ALBERTO Stop: 03/16/19 08:59 Last Admin: 09/17/18 08:10 Dose: 40 mg Ketorolac Tromethamine (Toradol) 15 mg IVP Q6HRS PRN PRN Reason: Pain, Breakthrough Stop: 09/22/18 00:00 Last Admin: 09/17/18 17:59 Dose: 15 mg Levothyroxine Sodium (Synthroid) 75 mcg PO DAILY06 [facility] Stop: 03/16/19 05:59 Last Admin: 09/17/18 05:34 Dose: 75 mcg Miscellaneous Medication (Mometasone/Formoterol [Dulera 100 Mcg/5 Mcg Inhaler]) 2 puffs IH BID [facility] Stop: 03/15/19 23:29 Last Admin: 09/17/18 11:56 Dose: 2 puffs Ondansetron HCl (Zofran Odt) 4 mg PO Q4HRS PRN PRN Reason: Nausea/Vomiting, Use 1st Stop: 03/15/19 22:15 Last Admin: 09/16/18 22:44 Dose: 4 mg Pantoprazole Sodium (Protonix) 40 mg PO DAILY ALBERTO Stop: 03/16/19 08:59 Last Admin: 09/17/18 08:06 Dose: 40 mg Prednisone (Prednisone) 40 mg PO DAILY ALBERTO Stop: 03/16/19 08:59 Last Admin: 09/17/18 09:46 Dose: 40 mg Tiotropium [place] (Spiriva Handihaler) 18 mcg IH DAILY ALBERTO Stop: 03/16/19 08:59 Last Admin: 09/17/18 10:57 Dose: Not Given Zolpidem Tartrate (Ambien) 5 mg PO HS PRN PRN Reason: Sleep/Insomnia Stop: 03/15/19 23:00 Last Admin: 09/17/18 00:04 Dose: 5 mg Discontinued Medications Albuterol/Ipratropium (Duoneb) 3 ml IH EDNOW ONE Stop: 09/16/18 19:03 Last Admin: 09/16/18 19:25 Dose: 3 ml Aspirin (Aspirin) 324 mg PO EDNOW ONE Stop: 09/16/18 19:03 Last Admin: 09/16/18 19:24 Dose: 324 mg Sodium Chloride (Ns) 1,000 mls @ 75 mls/hr IV CONT ALBERTO Stop: 03/15/19 22:29 Last Admin: 09/16/18 22:50 Dose: 1,000 mls Levofloxacin (Levaquin) 500 mg PO DAILY AT 10AM [facility] PRN Reason: Protocol Stop: 10/17/18 09:59 Last Admin: 09/17/18 09:46 Dose: 500 mg Losartan Potassium (Cozaar) 25 mg PO ONCE ONE Stop: 09/17/18 13:37 Last Admin: 09/17/18 14:10 Dose: 25 mg Potassium Chloride (Klor-Con) 40 meq PO ONCE ONE Stop: 09/16/18 22:19 Last Admin: 09/16/18 22:44 Dose: 40 meq Point of Care Test Results: CBC CBC Collection Date 09/16/18 CBC Collection Time 19:15 WBC 19.86 RBC 4.40 HGB 13.3 HCT 36.1 PLT 333 Neut # 17.63 Neut 88.7 LYMPH # 0.86 LYMPH 4.3 MCV 82.0 Chemistry 09/16/18 09/16/18 19:31 19:25 POC Sodium 133 mEq/L L mEq/L (135-145) POC Potassium 3.0 mEq/L L mEq/L (3.3-5.0) POC Chloride 94.0 mEq/L L mEq/L (97-110) POC Total CO2 26 mEq/L mEq/L (22-31) POC BUN 19 mg/dL mg/dL (7-23) POC Creatinine 0.5 mg/dL L mg/dL (0.6-1.0) POC Glucose 106 mg/dL H mg/dL (70-100) POC Calcium 9.4 mg/dL mg/dL (8.5-10.4) POC Troponin I 0.01 ng/mL ng/mL (0.00-0.08) D-Dimer D-Dimer Collection Date 09/16/18 D-Dimer Collection Time 19:17 D-Dimer (ng/ml) 142 Influenza PCR Flu Nasal Swab Collection Date 09/16/18 Flu Nasal Swab Collection Time 19:50 Influenza A Result Not Detected Influenza B Result Not Detected Departure - Departure Disposition: [facility] Inpatient Acute Clinical Impression: Pneumonitis, Hypoxia Condition: Fair
--- NOTE | 2018-09-16 19:44 | CPEKG ---
Test Reason : OPEN Blood Pressure : / mmHG Vent. Rate : 095 BPM Atrial Rate : 095 BPM P-R Int : 246 ms QRS Dur : 080 ms QT Int : 341 ms P-R-T Axes : 083 065 058 degrees QTc Int : 429 ms Sinus rhythm Prolonged MN interval Confirmed by Bev Huff ([id number]) on 09/16/2018 7:44:09 PM Referred By: BEV HUFF Confirmed By:Bev Huff
[2018-09-16] MEDS ORDERED: ACETAMINOPHEN 325 MG TAB PO PRN (22:16)
[2018-09-16] MEDS ORDERED: ONDANSETRON 4 MG/2 ML VIAL IVP PRN (22:16)
[2018-09-16] MEDS ORDERED: POTASSIUM CL 20 MEQ TAB PO ONE (22:18)
[2018-09-16] MEDS ORDERED: IPRATROPIUM/ALBUTEROL 3 ML DEYVIAL IH PRN (22:21)
[2018-09-16] MEDS ORDERED: NS 1,000 ML IV SCH (22:30)
[2018-09-16] MEDS: ONDANSETRON DISINTEGRATING 4 MG TAB PO PRN (22:44)
--- NOTE | 2018-09-16 23:21 | PDGENHP ---
History and Physical - Chief Complaint shoulder pain, chills, cough - History of Present Illness Source - patient provides history appears reliable. EMR was reviewed and case discussed with ED provider. HPI-this is a very pleasant 73-year-old female with past medical history significant for COPD on chronic oxygen at , HTN, iatrogenic hypothyroidism related to partial thyroidectomy for thyroid cancer, dysphagia secondary to esophageal strictures who presents emergency department today with complaints of bilateral shoulder pain and neck pain, found to be hypoxic upon triage. Patient reports that she was shoveling the driveway and thought this would be related to her muscles. She has been turn trying to do stretching anti over-the -counters. She has not had significant relief. Patient also reports that she has been experiencing some sore scratchy throat which she attributed to allergies as she does work as a dog breeder. She also reports some rhinorrhea and a cough. Patient has a history of admission for severe sepsis with strep pneumonia in setting of COPD with exacerbation and she became increasingly worried and so [place] [facility] [place]. Patient endorses chills over the last 24 hr as well as significant malaise and decreased energy and generalized weakness. She has been noting increasing abdominal distention and gas type pain. No diarrhea. Patient denies any melena. No nausea vomiting. Patient did have a resection of a squamous cell carcinoma on the posteromedial aspect of her left lower leg. She denies any increased warmth pain or drainage from the site. This was done a few days ago. Patient denies any dysuria hematuria. History Information - Allergies/Home Medication List Allergies/Adverse Reactions: azithromycin [Azithromycin] Allergy (Verified 09/16/18 18:53) Pt reports "GETS WORSE NOT BETTER" WITH THIS MED doxycycline Allergy (Verified 09/16/18 18:53) Pt reports rash PAIN MEDS Allergy (Uncoded 06/15/18 11:31) Pt reports Vomiting Home Medications: Aspirin EC [Aspirin EC 81 mg (*)] 81 mg PO HS 01/28/18 [Last Taken 09/15/18] Atorvastatin Calcium [Lipitor 10 mg (*)] 10 mg PO HS 01/28/18 [Last Taken ] Cetirizine [ZyrTEC 10 mg (*)] 10 mg PO HS 01/28/18 [Last Taken 09/15/18] Levothyroxine [Synthroid 75 mcg (*)] 75 mcg PO DAILY06 01/28/18 [Last Taken 11/01] Losartan Potassium [Cozaar 25 mg (*)] 25 mg PO BID 01/28/18 [Last Taken am dose only] Mometasone/Formoterol [Dulera 100 Mcg/5 Mcg Inhaler] 2 puffs IH BID 01/28/18 [ Last Taken 09/16/18] Omeprazole 20 mg PO DAILY 01/28/18 [Last Taken 09/16/18] Tiotropium Inhaler [Spiriva Handihaler] 18 mcg IH DAILY 01/28/18 [Last Taken 11/01 15:00] Zolpidem Tartrate [Ambien] 10 mg PO HS 01/28/18 [Last Taken 09/15/18] Hydrochlorothiazide [HCTZ (*)] 12.5 mg PO DAILY 09/16/18 [Last Taken 09/16/18 15 :00] I have personally reviewed and updated: family history, medical history, social history, surgical history - Past Medical History COPD (on trial Rx + albuterol, patient wears 2 liters/minute oxygen at HS), hypertension, hyperlipidemia Additional medical history: thyroid cancer patient status post partial thyroidectomy, now w/ hypothyroidism. esophageal stricture, persistent dysphagia patient reports that she has to crush her pills and button applesauce. HSV stomatitis,. 08/04/2017 patient was admitted for strep pneumonia and sepsis. Remote history of flu A. History of lymphedema in the right lower extremity. History of shingles x2 - Surgical History Additional surgical history: partial thyroidectomy 2000. esophageal dilations w / EGD. . Cataract extraction with lens placement. 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 She participates in various athletic events. She is lives with her . Cor status-full. Review of Systems Review of Systems: ROS: 10pt was reviewed & negative except for what was stated in HPI & below Constitutional: Reports: chills, fever, malaise, weakness (Generalized) EENMT: Reports: nose congestion, sore throat, other (Hoarseness). Denies: blurred vision Cardiac: Reports: no symptoms Respiratory: Reports: cough. Denies: shortness of breath Gastrointestinal: Reports: no symptoms Genitourinary: Reports: no symptoms Muscolosketal: Reports: no symptoms Skin: Reports: other (Patient with sutures in her left medial leg related to recent excision of skin cancer squamous cell carcinoma) Neurological: Reports: no symptoms Hematologic/Lymphatic: Reports: easy bruising. Denies: easy bleeding Physical Exam Physical Exam: Selected Entries 09/16/18 18:54 Blood Pressure Automatic Method Heart Rate 91 Respiratory 20 Rate O2 Sat (%) 91 L Temperature (C) 37.0 C Blood Pressure 168/73 H Mean Arterial 104 H Pressure (MAP) O2 Delivery Room Air Mode Temperature Oral Source Temp Pulse Resp BP Pulse Ox 37.3 C 85 16 159/63 H 99 09/16/18 23:05 09/16/18 23:05 09/16/18 23:05 09/16/18 23:05 09/16/18 23:05 O2 (L/minute) 4 Constitutional: no apparent distress, chronically ill appearing, uncomfortable, other (Thin elderly appearing female is lying quietly in bed. She appears acutely ill but nontoxic.) Eyes: PERRL (Lens reflex appreciated bilaterally.), anicteric sclera Ears, Nose, Mouth, Throat: dry mucous membranes, other (No nasal discharge. And nasal cannula in place.), No poor dentition Cardiovascular: regular rate and rhythym, pulses symmetric bilaterally, tachycardia, edema (Trace lower extremity edema.) Peripheral Pulses: 1+: dorsalis-pedis (R), dorsalis-pedis (L) Respiratory: no respiratory distress, reduced air movement, inspiratory crackles , other (No acute respiratory distress. Some increased work of breathing with movement talking.), No no rales or rhonchi, No rhonchi Gastrointestinal: soft, non-tender abdomen, distension, other (Hypoactive bowel sounds.), No tenderness, No ascites, No guarding, No rebound Genitourinary: no bladder fullness, no bladder tenderness, No murillo in urethra Skin: warm, other (Left posteromedial lower leg with incision that is healing. No surrounding erythema drainage or induration.), No erythema, No induration Musculoskeletal: generalized weakness, other (Patient is able to sit up independently. Moves all extremities.) Neurologic: AAOx3, sensation intact bilaterally, other (Grossly nonfocal.), No facial droop Psychiatric: not encephalopathic, thought process linear, anxious, No depressed , No poor insight, No poor judgement, No poor memory Lab Data & Imaging Review 09/17/18 05:15 09/17/18 05:15 POC Sodium 133 mEq/L (135-145) L 09/16/18 19:31 POC Potassium 3.0 mEq/L (3.3-5.0) L 09/16/18 19:31 POC Chloride 94.0 mEq/L (97-110) L 09/16/18 19:31 POC Total CO2 26 mEq/L (22-31) 09/16/18 19:31 POC BUN 19 mg/dL (7-23) 09/16/18 19:31 POC Creatinine 0.5 mg/dL (0.6-1.0) L 09/16/18 19:31 POC Glucose 106 mg/dL (70-100) H 09/16/18 19:31 POC Calcium 9.4 mg/dL (8.5-10.4) 09/16/18 19:31 POC Troponin I 0.01 ng/mL (0.00-0.08) 09/16/18 19:25 Imaging Review: PA and lateral chest. Clinical History: dyspnea Comparison Study: April 17, 2018.. Findings: Mild interstitial thickening is present in the lower lobes bilaterally, new from prior examination, suggesting either interstitial pneumonitis or early interstitial pulmonary edema. Heart size is normal. No pleural effusion.. Visualized osseous structures appear normal. Impression: Mild interstitial thickening in the lung bases bilaterally, new from prior study, interstitial pneumonitis versus early interstitial pulmonary edema. Dictated By: Law Feliz MD Visualized and Interpreted EKG results: Yes EKG additional interpertation: NSR in the 90s. No acute ST changes. Slightly prolonged p.r. Interval. QTC 429. Assessment & Plan Assessment: This is a very pleasant 73-year-old female with past medical history significant for COPD on chronic oxygen at , HTN, iatrogenic hypothyroidism related to partial thyroidectomy for thyroid cancer, dysphagia secondary to esophageal strictures who presents emergency department today with complaints of bilateral shoulder pain and neck pain, found to be hypoxic upon triage. #COPD with exacerbation - do steroids, nebulizer. No consolidations. Suspected viral cause for patient's symptoms. Respiratory PCR negative for identifiable #Hypoxia (Acute) - supplemental oxygen. Patient normally wears O2 at HS but not during the daytime. Currently requiring continuous supplement. #Pneumonitis (Acute) - potentially aspiration from viral syndrome. Supportive care as noted above. #The sirs without acute organ dysfunction - patient with leukocytosis, tachycardia, tachypnea. Blood cultures were ordered x2. Again suspect more of a viral etiology for her symptoms. #Dysphagia with history of soft gel strictures - patient denies any choking episodes. She has not had any change in her chronic symptoms. Given pneumonitis on imaging consider speech therapy eval. #Hypothyroidism - resume levothyroxine replacement #Essential HTN - blood pressure is acceptable at this time. Continue to monitor. Resume patient's home medications once med rec completed. FEN - IV fluids overnight. Monitor electrolytes replacement p.r.n.. Advance diet as tolerated. PPX-SCD right leg. Patient with a healing incision site. Cor status-full Disposition-patient admitted to observation status on [facility] floor for continued treatment, monitoring and oxygen supplementation.
[2018-09-16] MEDS: KETOROLAC 15 MG/1 ML SDV IVP PRN (23:38)
[2018-09-17] MEDS: ZOLPIDEM TARTRATE 5 MG TAB PO PRN ×2 (00:04→22:26)
[2018-09-17] MEDS: Mometasone/Formoterol [Dulera] 100 Mcg/5 Mcg Inhaler IH SCH ×3 (00:53→11:56)
[2018-09-17 05:28] LABS: PLATELET COUNT 281 10^3/uL (150-400)
[2018-09-17] MEDS: KETOROLAC 15 MG/1 ML SDV IVP PRN ×3 (05:33→17:59)
[2018-09-17] MEDS: LEVOTHYROXINE 75 MCG TAB PO SCH (05:34)
[2018-09-17] MEDS: PANTOPRAZOLE SODIUM 40 MG TAB PO SCH (08:06)
[2018-09-17] MEDS: ENOXAPARIN 40 MG/0.4 ML SYR SC SCH (08:10)
--- NOTE | 2018-09-17 08:15 | HOSPPROG ---
Hospitalist Progress Note Assessment/Plan: #COPD exacerbation -no PNA (CXR personally-reviewed), negative resp panel -pred, nebs, Azithro -may be related to cat exposure; Zyrtec #Hypokalemia: replete #Hyponatremia: hold HCTZ. #Acute resp insufficiency: due to above. Wears O2 at HS but not during the daytime. #Pneumonitis (Acute) - potentially aspiration from viral syndrome. Supportive care as noted above. #SIRs: no infectious source identified. Blood cultures pending. Suspect viral #DysphagiaL h/o soft gel strictures. She denies any choking episodes. Given pneumonitis on imaging consider speech therapy eval. #Hypothyroidism - LT4 #Essential HTN - hold BP meds for now, BP stable #Diet: regular #DVT ppx: Lovenox Disp: inpatient admission for Duonebs, steroids Subjective: tired, SOB with deep inspiration Objective: Vital Signs Temp Pulse Resp BP Pulse Ox 36.6 C 74 18 118/51 L 94 09/17/18 08:00 09/17/18 08:00 09/17/18 08:00 09/17/18 08:00 09/17/18 08:00 Laboratory Results 09/17/18 05:15 09/17/18 05:15 09/16/18 09/17/18 09/18/18 05:59 05:59 05:59 Intake Total 600 Balance 600 - Time Spent With Patient Time Spent with Patient: greater than 35 minutes Time Spent with Patient: Greater than 35 minutes spent on this patients care, greater than 50% of time spent counseling, educating, and coordinating care regarding the above mentioned plan. - Physical Exam Constitutional: no apparent distress Eyes: PERRL Ears, Nose, Mouth, Throat: moist mucous membranes Cardiovascular: regular rate and rhythym Respiratory: other (poor air movement), No expiratory wheeze Gastrointestinal: normoactive bowel sounds Genitourinary: no bladder fullness Skin: warm Musculoskeletal: full muscle strength Neurologic: AAOx3, CN II-XII Intact Psychiatric: interacting appropriately ICD10 Worksheet Patient Problems: Problems Problem Status Onset Hypoxia Acute Pneumonitis Acute Acute bronchitis Acute Chronic obstructive pulmonary disease with acute exacerbation Acute Pneumonia Acute chronic disease mgmt/transitional care Acute chronic disease mgmt/transitional care Acute
[2018-09-17] MEDS ORDERED: HYDROCHLOROTHIAZIDE 12.5 MG CAP PO SCH (09:00)
[2018-09-17] MEDS ORDERED: LOSARTAN POTASSIUM 25 MG TAB PO SCH (09:00)
[2018-09-17] MEDS: predniSONE 20 MG TAB PO SCH (09:46)
[2018-09-17] MEDS: TIOTROPIUM INHALER 18 MCG/DOSE 5 DOSE/MDI IH SCH (10:57)
[2018-09-17] MEDS ORDERED: LOSARTAN POTASSIUM 25 MG TAB PO ONE (13:36)
--- NOTE | 2018-09-17 14:57 | ASMTCMCOM ---
CM Note CM Note Notes: Pt is a 73 y/o female admitted for pneumonitis and hypoxia. CM met w/ pt for dispo planning. Pt reports that she lives independently w/ her and walks several miles a day/ SPL has been ordered and pending. Pt will most likely d/c without any needs when medically stable. CM available for changes. Plan: Independent Date Signed: 09/17/2018 02:57 PM Electronically Signed By:URIEL Ervin
--- NOTE | 2018-09-17 16:09 | PDMN ---
Medical Necessity Medical necessity: Change to IP, as of 09/17/18, per MD & MCG M-100; los >2 mn for ongoing management of COPD exacerbation w/acute respiratory insufficiency & pneumonitis (potentially aspiration); requiring further monitoring, respiratory supportive care & COMM[employer] eval/tx; hx esophageal stricture w/dysphagia
[2018-09-17] MEDS ORDERED: NS 1,000 ML IV SCH (16:45)
[2018-09-17] MEDS ORDERED: SODIUM CHLORIDE 1,000 MG TAB PO SCH (18:00)
[2018-09-17] MEDS: CETIRIZINE 10 MG TAB PO SCH (22:14)
[2018-09-17] MEDS: ASPIRIN EC 81 MG TAB PO SCH (22:14)
[2018-09-17] MEDS: ATORVASTATIN CALCIUM 10 MG TAB PO SCH (22:14)
[2018-09-17] MEDS: ONDANSETRON DISINTEGRATING 4 MG TAB PO PRN (22:26)
[2018-09-18] MEDS: Mometasone/Formoterol [Dulera] 100 Mcg/5 Mcg Inhaler IH SCH ×3 (01:09→20:51)
[2018-09-18] MEDS: LEVOTHYROXINE 75 MCG TAB PO SCH (05:13)
[2018-09-18] MEDS: PANTOPRAZOLE SODIUM 40 MG TAB PO SCH (08:51)
[2018-09-18] MEDS: ENOXAPARIN 40 MG/0.4 ML SYR SC SCH (08:57)
[2018-09-18] MEDS ORDERED: predniSONE 20 MG TAB PO SCH ×2 (09:04→09:30)
[2018-09-18] MEDS: predniSONE 20 MG TAB PO SCH (10:36)
[2018-09-18] MEDS: TIOTROPIUM INHALER 18 MCG/DOSE 5 DOSE/MDI IH SCH ×2 (10:37→15:43)
[2018-09-18] MEDS: KETOROLAC 15 MG/1 ML SDV IVP PRN ×2 (10:37→17:31)
[2018-09-18] MEDS: SODIUM CHLORIDE 1,000 MG TAB PO SCH ×2 (11:21→17:31)
--- NOTE | 2018-09-18 13:13 | HOSPPROG ---
Hospitalist Progress Note Assessment/Plan: #COPD exacerbation -no PNA (CXR personally-reviewed), negative resp panel -nebs, Azithro -may be related to cat exposure; Zyrtec -declined #Hypokalemia: replete #SIADH: fluid-restricted, salt tabs. Recently started HCTZ; recommend stopping #Acute resp insufficiency: resolved #Pneumonitis (Acute) - potentially aspiration from viral syndrome. Supportive care as noted above. #SIRs: no infectious source identified. Blood cultures pending. Suspect viral. Resolved #Dysphagia h/o soft gel strictures. She denies any choking episodes. Given pneumonitis on imaging consider speech therapy eval. #Hypothyroidism - LT4 #Essential HTN - BP stable. Losartan once daily now. Stop HCTZ #Diet: regular #DVT ppx: Lovenox Disp: inpatient admission for Duonebs, steroids, serial BMP Subjective: breathing is better Objective: Vital Signs Temp Pulse Resp BP Pulse Ox 36.6 C 72 16 129/71 H 94 09/18/18 11:34 09/18/18 11:34 09/18/18 11:34 09/18/18 11:34 09/18/18 11:34 Laboratory Results 09/18/18 05:18 09/18/18 05:18 09/17/18 09/18/18 09/19/18 05:59 05:59 05:59 Intake Total 850 230 Output Total 500 Balance 350 230 - Time Spent With Patient Time Spent with Patient: greater than 35 minutes Time Spent with Patient: Greater than 35 minutes spent on this patients care, greater than 50% of time spent counseling, educating, and coordinating care regarding the above mentioned plan. - Physical Exam Constitutional: no apparent distress Eyes: PERRL Ears, Nose, Mouth, Throat: moist mucous membranes Cardiovascular: regular rate and rhythym Respiratory: other (air movement improved, no wheeze) Gastrointestinal: normoactive bowel sounds Genitourinary: no bladder fullness Skin: warm Musculoskeletal: full muscle strength Neurologic: AAOx3, CN II-XII Intact Psychiatric: interacting appropriately ICD10 Worksheet Patient Problems: Problems Problem Status Onset Hypoxia Acute Pneumonitis Acute Acute bronchitis Acute Chronic obstructive pulmonary disease with acute exacerbation Acute Pneumonia Acute chronic disease mgmt/transitional care Acute chronic disease mgmt/transitional care Acute
[2018-09-18] MEDS: LOSARTAN POTASSIUM 25 MG TAB PO SCH (13:40)
[2018-09-18] MEDS ORDERED: MAGNESIUM HYDROXIDE 30 ML UDCUP PO PRN (17:30)
[2018-09-18] MEDS ORDERED: POLYETHYLENE GLYCOL 3350 17 GM PKT PO PRN (17:30)
[2018-09-18] MEDS ORDERED: LACTULOSE 20 GM/30 ML UDCUP PO PRN (17:30)
[2018-09-18] MEDS ORDERED: BISACODYL 10 MG SUPP PR PRN (17:30)
[2018-09-18] MEDS: ONDANSETRON DISINTEGRATING 4 MG TAB PO PRN (20:49)
[2018-09-18] MEDS: ATORVASTATIN CALCIUM 10 MG TAB PO SCH (20:50)
[2018-09-18] MEDS: CETIRIZINE 10 MG TAB PO SCH (20:50)
[2018-09-18] MEDS: SENNOSIDES/DOCUSATE SODIUM TAB PO SCH (20:50)
[2018-09-18] MEDS: ASPIRIN EC 81 MG TAB PO SCH (20:50)
[2018-09-18] MEDS ORDERED: SODIUM CHLORIDE 1,000 MG TAB PO SCH (21:30)
[2018-09-18] MEDS: ZOLPIDEM TARTRATE 5 MG TAB PO PRN (22:35)
[2018-09-19] MEDS: LEVOTHYROXINE 75 MCG TAB PO SCH (05:27)
[2018-09-19] MEDS: LOSARTAN POTASSIUM 25 MG TAB PO SCH (08:22)
[2018-09-19] MEDS: ENOXAPARIN 40 MG/0.4 ML SYR SC SCH (08:22)
[2018-09-19] MEDS: SODIUM CHLORIDE 1,000 MG TAB PO SCH ×2 (08:22→11:17)
[2018-09-19] MEDS: SENNOSIDES/DOCUSATE SODIUM TAB PO SCH (08:23)
[2018-09-19] MEDS: PANTOPRAZOLE SODIUM 40 MG TAB PO SCH (08:24)
[2018-09-19] MEDS: Mometasone/Formoterol [Dulera] 100 Mcg/5 Mcg Inhaler IH SCH (08:25)
[2018-09-19] MEDS: TIOTROPIUM INHALER 18 MCG/DOSE 5 DOSE/MDI IH SCH (09:38)
[2018-09-19] MEDS: KETOROLAC 15 MG/1 ML SDV IVP PRN (11:16)
[2018-09-19 12:10] VITALS: BP 122/57
--- NOTE | 2018-09-19 14:37 | ASDISCHSUM ---
Discharge Information Plan Status:Home with No Needs Medically Cleared to Leave: Discharge Date: CM D/C Disposition:Home, Routine, Self-Care ADT D/C Disposition:Home, Routine, Self-Care Projected Discharge Date:09/19/2018 12:00 AM Transportation at D/C: Discharge Delay Reason: Follow-Up Date:09/19/2018 12:00 AM Discharge Slot: Final Diagnosis: Placement Information Patient Contact Information Contact Name:LEAH Relationship: Address:[address] City:[place] Alternate Phone: [facility]/Zip Code:[place] [address] Email: Financial Information Financial Class:Medicare Primary Plan Desc:MEDICARE INPATIENT Primary Plan Number:[id number] Secondary Plan Desc[place] [facility] [place]:[id number] Assessment Information LACE LACE Length of stay for Answers: 2 days current admission Acuity / Level of Answers: Yes Care: Did the patient have an inpatient admission? Comorbidities - select Answers: Chronic pulmonary disease all that apply Other Notes: HTN; Hypothyroid; HLD # of Emergency department Answers: 1-2 visits in the last 6 months Score: 9 Date Signed: 09/19/2018 02:35 PM Electronically Signed By:URIEL Kovacs [facility] CM Progress Note CM Note CM Note Notes: Pt is a 73 y/o female admitted for pneumonitis and hypoxia. CM met w/ pt for dispo planning. Pt reports that she lives independently w/ her and walks several miles a day/ SPL has been ordered and pending. Pt will most likely d/c without any needs when medically stable. CM available for changes. Plan: Independent Date Signed: 09/17/2018 02:57 PM Electronically Signed By:URIEL Ervin Case Management Discharge Plan Note Case Management Discharge Discharge Order Complete? Answers: Yes Patient to Obtain Answers: via Family Medications Transportation Arranged Answers: Family/Friends Discharge Comments Notes: Pt is being discharged independently. No CM needs identified. Family to transport. Date Signed: 09/19/2018 02:35 PM Electronically Signed By:URIEL Kovacs Intervention Information Intervention Type:TINOCO-Refused Date of Service:09/17/2018 09:48 AM Patient Type:Observation Staff Member:Charlotte Jj Hours: Discipline: Severity: Comment:Patient has refused to sign the Medica re Observation Notice. She stated that he r insurance will not cover unless she is inpatient. I explained to her how her Part B benefit works. Patient also stated she has a secondary insurance. Patient has since been switched to inpatient by Dr. Black for "Duonebs, steroids".
--- NOTE | 2018-09-19 21:09 | GDS ---
[f rep st] DISCHARGE SUMMARY DISCHARGE DIAGNOSES: 1. COPD exacerbation. 2. Hypokalemia. 3. SIADH 4. Acute respiratory insufficiency. 5. Pneumonitis. 6. SIRs 7. Dysphagia. 8. History of esophageal strictures. 9. Hypothyroidism. 10. Essential hypertension. 11. Chronic hypoxemic respiratory failure. 12. Thyroid cancer. HISTORY OF PRESENT ILLNESS: A pleasant 73-year-old female with COPD on chronic oxygen, hypertension and hypothyroidism, presents to the ER with complaints of bilateral shoulder, neck pain, found to be hypoxic upon triage. She had been shoveling her driveway and thought the pain was related to muscle pain. 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 HOSPITAL COURSE BY PROBLEM: 1. COPD exacerbation: No evidence of pneumonia. Negative respiratory panel but still suspect viral cause. Could be related to cat exposure as well. Symptoms quickly improved with nebs, Levaquin for inflammation. She declined prednisone. 2. Hypokalemia: Repleted. 3. SIADH: Sodium initially 133. After IV fluids, dropped to 124. She remained asymptomatic. This improved to 130 with fluid restriction and salt tabs. Will continue tabs for 2 more days along with fluid restriction. She will follow up with her PCP for repeat BMP on Sunday. She should discontinue hydrochlorothiazide indefinitely. 4. Acute respiratory insufficiency: Secondary to COPD exacerbation. This resolved. 5. SIRS: No infectious source identified. Negative blood cultures and respiratory panel. 6. History of dysphagia secondary to esophageal strictures: She denies any choking episodes. 7. Hypothyroidism: On levothyroxine. 8. Essential hypertension: Losartan b.i.d. Stop hydrochlorothiazide. Blood pressure is stable on this dose. DISPOSITION: Patient is stable for discharge home. NEW MEDICATIONS: 1. Salt tab for 2 more days. 2. Levaquin x2. FOLLOWUP: Dr. Arguelles for BMP Sunday. PHYSICAL EXAMINATION: VITAL SIGNS: Today, temperature 36.7, blood pressure 122 /57, heart rate 80s, respirations 16, 91% on room air. GENERAL: She is well appearing, walking the halls without issue. HEENT: PERRLA. Moist mucous membranes. CV: Regular rate and rhythm. LUNGS: No wheezing. Increased air movement. ABDOMEN: Soft, nontender. : No Rosales. MUSCULOSKELETAL: 5/5 upper and lower extremity strength. NEURO: 2 through 12 intact. PSYCH: Alert and oriented x3. Time spent on discharge greater than 30 minutes at bedside counseling patient on medications and followup plan. /[id number]/MODL MTDDari
== END 2018-09-19 15:45 | disposition home or self-care (01) | DRG 190 ==
LOC: CED 18:40 → CEDHOLD 20:00 → F3E 21:40 → OBSVTOIN 09-17 08:42
PROVIDERS: ADMIT Internal Medicine; ATTEND Internal Medicine
DX: J44.1 Chronic obstructive pulmonary disease with (acute) exacerbation (principal); J44.0 Chronic obstructive pulmonary disease with (acute) lower respiratory infection; J12.9 Viral pneumonia, unspecified; J96.11 Chronic respiratory failure with hypoxia; E22.2 Syndrome of inappropriate secretion of antidiuretic hormone; E87.6 Hypokalemia; R06.89 Other abnormalities of breathing; R13.10 Dysphagia, unspecified; E03.9 Hypothyroidism, unspecified; I10 Essential (primary) hypertension; Z98.890 Other specified postprocedural states
CPT/HCPCS: 71046-PO; 80048-ER; 84484-ER; 92526-GN; 92610-GN; G0378; J1650; J1885; J7512

== ENCOUNTER → 2018-10-08 | Outpatient (CLI) | payer OTHER | LOC: CIMAGING 16:24 | PROVIDERS: ATTEND Internal Medicine | DX: S40.021A Contusion of right upper arm, initial encounter (principal) | CPT/HCPCS: 73060-PO ==